=== PATIENT | female | born 1945 | race African-American/Black ===

== ENCOUNTER 2023-08-25 11:20 | Emergency (ER) | payer MEDICARE, BC, SELFPAY ==
[2023-08-25 11:36] VITALS: BP 133/68
[2023-08-25 12:07] LABS: % Basophils 0.4 % (0-2); % Eosinophils 1.4 % (0-6); % Immature Granulocytes 0.4 % (0-0.5); % Lymphocytes 16.1 % (20.5-51.1); % Monocytes 7.4 % (1.7-9.3); % Neutrophils 74.3 % (42.2-75.2); Absolute Eosinophils 0.1 10^3/uL (0-0.7); Absolute Lymphocytes 1.3 10^3/uL (1.2-3.4); Absolute Monocytes 0.6 10^3/uL (0.1-0.6); Absolute Neutrophils 5.8 10^3/uL (1.4-6.5); Hematocrit 44.7 % (37.0-47.0); Mean Corp Hgb Conc. 33.6 g/dL (33.0-37.0); Mean Corpuscular Hgb 30.9 pg (27.0-31.0); Mean Platelet Volume 9.6 fL (7.4-10.4); Nucleated Red Blood Cells % 0 %; Platelet Count 298 10^3/uL (130-400); Red Blood Cell Count 4.86 10^6/uL (4.20-5.40); Red Cell Dist. Width 13.4 % (11.5-14.5); White Blood Cell Count 7.8 10^3/uL (4.8-10.8)
[2023-08-25 12:21] LABS: ALT (SGPT) 24 U/L (0-35); AST (SGOT) 36 U/L (14-36); Albumin 4.1 g/dl (3.5-5.0); Alkaline Phosphatase 89 U/L (38-126); Blood Urea Nitrogen 16 mg/dl (7-17); Calcium 10.3 mg/dl (8.4-10.2); Carbon Dioxide 30 mmol/L (22-30); Chloride 104 mmol/L (98-107); Glucose 91 mg/dl (70-99); Potassium 4.5 mmol/L (3.5-5.1); Sodium 137 mmol/L (135-145); Total Bilirubin 0.6 mg/dl (0.2-1.3); Total Protein 6.8 g/dl (6.3-8.2); eGFR > 60.00
[2023-08-25 12:34] LABS: Troponin I < 0.012 ng/ml
[2023-08-25 13:49] VITALS: BP 142/73
--- NOTE | 2023-08-25 13:55 | ED.GENMED ---
History of Present Illness
General
Chief Complaint: Chest Pain
Source: patient and family
Exam Limitations: none
Time Seen by Provider: 08/25/23 13:41
Travel History
Have you had any contact with someone who has COVID-19?: No
Do you have any symptoms of coronavirus? Fever > 100 degrees, chills, cough, shortness of breath, sore throat, loss of taste or smell, muscle aches, or headache?: No
History of Present Illness
History of Present Illness:
See MDM
Past History
Past History
ED Past Medical History: Cancer (Colon cancer ), Psychiatric (Depression, bipolar disorder ), Other (Dementia ) and Other (Osteoarthritis )
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
Social History
Tobacco: Non-smoker
Alcohol: None
Personal:
Living: with family
Employment: Retired
Family History
Family History: Other (Noncontributory)
Phy Exam
Physical Exam
Physical Exam:
See MDM
Scores
Heart Score for Chest Pain Patients
STEMI patient?: No
History: Slightly or Non-Suspicious
ECG: Normal
Age: >/= 65 years
Risk Factors: 1 or 2 Risk Factors
Troponin: </= Normal Limit
Heart Score for Chest Pain Patients: 3
Heart Score Risk: 2.5% MACE over next 6 weeks
Course
Orders/Labs/Results
Orders:
Orders
08/25/23 11:22
ECG [Electrocardiogram (*1)] Urgent
Reason for Study: Chest Pain
EKG- Treatment ONCE
08/25/23 11:47
Complete Blood Count/With Diff Urgent
Comprehensive Metabolic Panel Urgent
Troponin I Urgent
08/25/23 13:54
CR Chest - 2 Views Urgent
Comment:
Reason For Exam: chest pain
08/25/23 13:56
Troponin I Urgent
Abnormal Lab Results
08/25/23
11:47
Lymphocytes % 16.1 L %
(20.5-51.1)
Calcium 10.3 H mg/dl
(8.4-10.2)
08/25/23 11:47
08/25/23 11:47
Vital Signs
Initial and Last Documented VS:
Initial Vital Signs
Temp Pulse Resp BP Pulse Ox
98.1 F 68 19 133/68 100
08/25/23 11:36 08/25/23 11:36 08/25/23 11:36 08/25/23 11:36 08/25/23 11:36
Last Documented Vital Signs
Temp Pulse Resp BP Pulse Ox
98.1 F 68 19 142/73 96
08/25/23 11:36 08/25/23 11:36 08/25/23 11:36 08/25/23 13:49 08/25/23 13:50
MDM/Problems Addressed
Differential Diagnosis Includes:
HPI and MDM Narrative:
77-year-old female presenting for evaluation of chest pain. Patient was at the dentist office being evaluated for a cracked tooth. While in the dentist chair, she noted chest pain. Patient states the pain hurts when she presses on her mid chest.
The dentist sent her in for evaluation. Patient denies prior cardiac history. She does not think symptoms are worse when she exerts herself
On exam, she is well-appearing and nontoxic. We discussed nonischemic EKG and normal troponin. Given age and complaint, will obtain chest x-ray and repeat troponin. She is not tachycardic nor hypoxic. She is extremely comfortable appearing lying
in bed. No clinical signs of DVT
Physical exam
General: Well appearing and non-toxic
HEENT: protecting airway
Neck: appears supple
CV: No evidence of cyanosis. Regular rate and rhythm
Chest: Reproducible tenderness to palpation of costochondral joints
Resp: No accessory muscle use. Lungs clear
Abd: Non-distended
Extremities: No deformities
Neuro: alert
Psych: Normal affect
Skin: Intact
Problems Addressed including Acute and Chronic Conditions affecting care:
1. Chest pain
Acuity: acute
Prognosis: stable
Details: Given no exertional component, nonischemic EKG and normal troponin, doubt ACS. No clinical signs of DVT. We discussed this could be related to the position she was in during her dentistry evaluation
Updates
Troponin negative x 2. Chest x-ray clear. Patient and family feel comfortable going home. Patient placed on cardiac callback tracker.
Differential Diagnosis (but not limited to): Noncardiac chest pain, costochondritis
Testing considered: D-dimer but no clinical signs of DVT
Drug therapy (if applicable): OTC meds, please see d/c instruction regarding Rx drugs
Amount and/or Complexity of Data Reviewed
Clinical info obtained from: Patient
External data reviewed: N/A
Labs I independently reviewed (but not limited to): Troponin normal
Radiology: X-ray independently reviewed: Chest x-ray clear
Pulse Ox: not hypoxic
EKG independently reviewed: Sinus rhythm, normal axis, no STEMI
Arc Welder: N/A
Critical Care: N/A
Risk of Complication:
Social Determinants of health: Good social support
Discussed with other providers: N/A
Escalation of Care includes Admit/Obs: After being observed in the Emergency Department, pt stable for discharge.
Occasional wrong word or 'sound a like' substitutions may have occurred due to the inherent limitations of voice recognition software. Read the chart carefully and recognize, using context, where substitutions have occurred.
*Critical Care Note
Total Time (30-74mins, 75-104mins- exclusive of procedures): Not Applicable
ED Attending Note
-
Portions of this chart may have been created with voice recognition software.� Occasional wrong word or��sound alike� substitutions may have occurred due to the inherent limitations of voice recognition software.
Discharge Plan
Departure
Patient Disposition: Home (Routine Discharge)
Date of Disposition: 08/25/23
Time of Disposition: 14:40
Patient with high blood pressure during this ER visit?: Yes
Discharge Problem:
Chest pain
Instructions: Chest Pain DCA Follow Up, BLOOD PRESSURE
Prescriptions:
No Action
zuwdrptdnkb-xlxqgzbqa-myo C-Mn 1 CAP capsule
1 cap PO DAILY
Patient Comments:
pt poor historian
vitamin B complex-folic acid [Super B Maxi Complex] 0.4 MG tablet
0.4 mg PO DAILY
topiramate 25 MG tablet
50 mg PO BID
mirtazapine 30 MG tablet
30 mg PO HS
ferrous sulfate [FeroSul] 325 MG tablet
325 mg PO DAILY
quetiapine 25 MG tablet
50 mg PO HS
donepezil 10 MG tablet
10 mg PO HS
ascorbic acid (vitamin C) [Vitamin C] 500 MG tablet
500 mg PO DAILY
gabapentin 300 MG capsule
300 mg PO BID
esomeprazole magnesium [Nexium] 20 MG capsule,delayed release(DR/EC)
20 mg PO DAILY
oxycodone 5 MG tablet
5 mg PO Q4HPRN PRN (Reason: moderate pain)
escitalopram oxalate 20 MG tablet
20 mg PO DAILY
aripiprazole 5 MG tablet
5 mg PO DAILY
memantine 10 MG tablet
10 mg PO BID
fish oil-dha-epa 1 EACH capsule
2 ea PO BID
calcium carbonate-vitamin D3 [Oyster Shell Calcium-Vit D3] 500 MG tablet
1 tab PO BID
cholecalciferol (vitamin D3) 1,000 UNITS tablet
1,000 units PO DAILY
multivitamin with folic acid [Tab-A-Marina] 1 TABLET tablet
1 tab PO DAILY
psyllium husk [Metamucil] 0.4 GM capsule
0.4 gm PO DAILY
aspirin 81 MG tablet,chewable
81 mg PO BID
lidocaine [Aspercreme (lidocaine)] 1 PATCH adhesive patch,medicated
1 patch topical DAILY Qty: 10 0RF
Rx Instructions:
apply on hip
Referrals:
Zander Grewal MD [Active] -
Activity Restrictions/Additional Instructions:
Please return for any worsening symptoms.
You may return at any time if you have further concerns.
Please follow up with your doctor at the first available appointment, preferably this week.
You were placed on the cardiac callback tracker. Someone from their office should call you in the next few days. If you do not hear from them in the next few days, please give them a call.
Thank you for choosing [facility].
Interventions
Interventions:
*Risk Screen - Suicide Last Done: 08/25/23 13:43
*General Assessment Last Done: 08/25/23 11:36
*Neglect/Abuse Screening Last Done: 08/25/23 13:43
ED- Fall Risk Assessment Last Done: 08/25/23 13:52
*ED COVID-19 Vaccine History Last Done: 08/25/23 13:52
ED- Cardiac Assessment Last Done: 08/25/23 13:43
[2023-08-25 14:00] VITALS: BP 133/69
[2023-08-25 14:27] LABS: Troponin I < 0.012 ng/ml
== END 2023-08-25 14:48 | disposition home or self-care (01) ==
LOC: EMR 11:20
PROVIDERS: Physician Assistant; EMERGENCY PHYSICIAN Student in an Organized Health Care Education/Training Program; FAMILY PHYSICIAN Internal Medicine Geriatric Medicine
DX: R07.89 Other chest pain (principal); F03.93 Unspecified dementia, unspecified severity, with mood disturbance; F31.9 Bipolar disorder, unspecified; M19.90 Unspecified osteoarthritis, unspecified site; Z85.038 Personal history of other malignant neoplasm of large intestine; Z90.49 Acquired absence of other specified parts of digestive tract; Z90.710 Acquired absence of both cervix and uterus
CPT/HCPCS: 99283; 71046; 80053; 84484; 85025; 93005

== ENCOUNTER → 2023-09-14 11:07 | Outpatient (REF) | payer MEDICARE, BC, SELFPAY | LOC: DHCBC/DCA 11:07 | PROVIDERS: ATTENDING PHYSICIAN Internal Medicine Cardiovascular Disease; FAMILY PHYSICIAN Internal Medicine Geriatric Medicine | DX: R07.9 Chest pain, unspecified (principal) | CPT/HCPCS: 78452; 93017; A9500; J2785 ==

== ENCOUNTER → 2023-10-07 13:41 | Outpatient (REF) | payer MEDICARE, BC, SELFPAY | LOC: DHCBS HW 13:41 | PROVIDERS: ATTENDING PHYSICIAN Internal Medicine Cardiovascular Disease; FAMILY PHYSICIAN Internal Medicine Geriatric Medicine | DX: R07.9 Chest pain, unspecified (principal) | CPT/HCPCS: 93306 ==

== ENCOUNTER 2024-01-07 19:27 | Emergency (ER) | payer MEDICARE, BC, SELFPAY ==
[2024-01-07 19:28] VITALS: BP 110/58; BMI 23.4
[2024-01-07 19:33] VITALS: BP 110/58
[2024-01-07 20:00] VITALS: BP 114/66
--- NOTE | 2024-01-07 20:17 | ED.GENMED ---
History of Present Illness
General
Chief Complaint: Overdose Unintentional
Source: patient, spouse and other (Friend)
Exam Limitations: dementia (history of)
Time Seen by Provider: 01/07/24 19:55
History of Present Illness
History of Present Illness:
This is a 78 year old female that is brought in by ambulance with accidental overdose. Told that the patient around 5:30-6pm took Zoloft that was her husbands. states that she put some in her mouth and then spit them out. States that he only
takes a 1/2 of a tablet and they were filled on 11/05/23. States that they are 50mg tablets. Denies any nausea, vomiting, diarrhea, abd pain, fever, chills, chest pain, SOB, headache, dizziness, urinary burning
Past History
Past History
ED Past Medical History: Cancer (Colon cancer ), Psychiatric (Depression, bipolar disorder ), Other (Dementia ) and Other (Osteoarthritis )
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
Left hip revision, ) and Other (Cataracts)
Social History
Tobacco: Former smoker
Alcohol: Occasional
Personal:
Living: with family
Employment: Retired
Family History
Family History: Other (Noncontributory)
Review of Systems
Review of Systems
Other source history: family
All Other Systems: ROS reviewed and negative except as documented in HPI and ROS
Constitutional: Reports no symptoms; Denies fever or chills
EENT: Reports no symptoms
Respiratory: Reports no symptoms; Denies cough or trouble breathing
Cardiac: Reports no symptoms; Denies chest pain
ABD/GI: Reports no symptoms; Denies abdominal pain, nausea, vomiting or diarrhea
: Reports no symptoms; Denies dysuria, frequency or urgency
Musculoskeletal: Reports no symptoms
Skin: Reports no symptoms
Neurological: Reports no symptoms; Denies dizzy or headache
Psychiatric: Reports no symptoms
Phy Exam
General Physical Exam
General Presentation: no apparent distress
General age: appears stated age
General Skin: warm and dry
General Habitus: elderly
General Mental: usual mental status
General Hydration: dry mucous membranes
ENT Exam
ENT Exam: TM's normal, pharynx normal and neck supple
Eye Exam
Eye Exam: EOMI
Cardiovascular Exam
Cardiovascular Exam: regular rate/rhythm, no edema, no murmur and normal peripheral pulses
Pulmonary Exam
Pulmonary Exam: lungs clear, no respiratory distress, no rales, chest non tender, no crackles, no rhonchi, no wheezing and no cough
Gastrointestinal Exam
Gastrointestinal Exam: normal bowel sounds, non tender, soft, no organomegaly, no pulsatile mass and non distended
Musculoskeletal Exam
Musculoskeletal Exam: full ROM and no edema
Skin Exam
Skin Exam: normal color, warm/dry, no rash and no petechia
Psychiatric Exam
Psychiatric Exam: normal mood/affect
Course
Orders/Labs/Results
Orders:
Orders
01/07/24 19:36
Electrocardiogram (*1) Urgent
Reason for Study: QTc Monitoring
EKG- Treatment ONCE
01/07/24 20:14
0.9% Sodium Chloride 1000 ml [Nss] 1,000 ml IV BOLUS
01/07/24 20:25
Acetaminophen Urgent
Complete Blood Count/With Diff Urgent
Comprehensive Metabolic Panel Urgent
Salicylate Urgent
Abnormal Lab Results
01/07/24
20:25
BUN 29 H mg/dl
(7-17)
Glucose 130 H mg/dl
(70-99)
Calcium 10.3 H mg/dl
(8.4-10.2)
Salicylates < 1.0 L mg/dl
(2.0-20.0)
Acetaminophen < 10 L ug/ml
(10-30)
01/07/24 20:25
01/07/24 20:25
Dehydration. Glucose nonfasting. Calcium very slightly elevated. Negative for salicylates or Acetaminophen
Vital Signs
Initial and Last Documented VS:
Initial Vital Signs
Temp Pulse Resp BP Pulse Ox
98 F 77 16 110/58 97
01/07/24 19:28 01/07/24 19:28 01/07/24 19:28 01/07/24 19:28 01/07/24 19:28
Last Documented Vital Signs
Temp Pulse Resp BP Pulse Ox
98 F 74 19 131/91 96
01/07/24 19:28 01/07/24 22:00 01/07/24 22:00 01/07/24 22:00 01/07/24 21:45
MDM/Problems Addressed
Differential Diagnosis Includes:
accidental overdose
MDM/Problems Addressed:
This is a 78 year old female that has dementia. Patient accidentally took her husbands Zoloft and then spit them out according to the .
Will get labs, ECG, IV fluids and talk with Poison control
Spoke with Poison Control at [facility], Dr. Welsh. Given all information. Feels that the patient should be watched from the time of ingestion for about 5 hours. If patient has normal vital signs, No Tachycardia, Gi upset, and she is able to
ambulate she can go home in 5 hours form the 6pm time. Repeat exam. Heart rate normal. Lungs remain clear. Patient was able to walk without any difficulty. Will discharge home.
Unable to get . Called . Daughter and she will come and pick her mom up.
Chronic conditions affecting care:
Dementia
Acute Exacerbation and/or Progression of Chronic Illness:
NA
*Pulse Oximetry
Patient hypoxic: no
*EKG
Interpreted by ED Provider?: Yes
Heart Rate: 69
Rate: normal
Rhythm: sinus arrhythmia
[place]: normal axis
Interval: normal interval
QRS Pattern: normal QRS
Ischemia: no ischemia
*Hotel Front Office Manager Interpretation
Rate: normal
Heart Rate: 75
Rhythm: sinus
*Critical Care Note
Total Time (30-74mins, 75-104mins- exclusive of procedures): Not Applicable
ED Attending Note
-
Portions of this chart may have been created with voice recognition software.� Occasional wrong word or��sound alike� substitutions may have occurred due to the inherent limitations of voice recognition software.
Discharge Plan
Departure
Patient Disposition: Home (Routine Discharge)
Date of Disposition: 01/07/24
Time of Disposition: 23:13
Patient with high blood pressure during this ER visit?: Yes
Condition: Good
Covid-19: Not Applicable
Discharge Problem:
Accidental drug ingestion
Instructions: BLOOD PRESSURE
Prescriptions:
No Action
uakytfayolk-wcwihorwr-jlk C-Mn 1 CAP capsule
1 cap PO DAILY
Patient Comments:
pt poor historian
vitamin B complex-folic acid [Super B Maxi Complex] 0.4 MG tablet
0.4 mg PO DAILY
topiramate 25 MG tablet
50 mg PO BID
mirtazapine 30 MG tablet
30 mg PO HS
ferrous sulfate [FeroSul] 325 MG tablet
325 mg PO DAILY
quetiapine 25 MG tablet
50 mg PO HS
donepezil 10 MG tablet
10 mg PO HS
ascorbic acid (vitamin C) [Vitamin C] 500 MG tablet
500 mg PO DAILY
gabapentin 300 MG capsule
300 mg PO BID
esomeprazole magnesium [Nexium] 20 MG capsule,delayed release(DR/EC)
20 mg PO DAILY
oxycodone 5 MG tablet
5 mg PO Q4HPRN PRN (Reason: moderate pain)
escitalopram oxalate 20 MG tablet
20 mg PO DAILY
aripiprazole 5 MG tablet
5 mg PO DAILY
memantine 10 MG tablet
10 mg PO BID
fish oil-dha-epa 1 EACH capsule
2 ea PO BID
calcium carbonate-vitamin D3 [Oyster Shell Calcium-Vit D3] 500 MG tablet
1 tab PO BID
cholecalciferol (vitamin D3) 1,000 UNITS tablet
1,000 units PO DAILY
multivitamin with folic acid [Tab-A-Marina] 1 TABLET tablet
1 tab PO DAILY
psyllium husk [Metamucil] 0.4 GM capsule
0.4 gm PO DAILY
aspirin 81 MG tablet,chewable
81 mg PO BID
lidocaine [Aspercreme (lidocaine)] 1 PATCH adhesive patch,medicated
1 patch topical DAILY Qty: 10 0RF
Rx Instructions:
apply on hip
Referrals:
NONE,* [Family Provider] -
Activity Restrictions/Additional Instructions:
As discussed, your blood work is normal. You have been given IV fluids and your vital signs are normal. Please keep medication locked up so not in the reach of patient. Most likely the patient spit all the medication out as there was no signs noted
that would have been seen. Follow up with the family doctor as needed. IF YOU HAVE ANY OTHER CONCERNS PLEASE RETURN TO THE EMERGENCY ROOM
Interventions
Interventions:
ED- Cardiac Assessment Last Done: 01/07/24 20:00
ED- Neurological Assessment Last Done: 01/07/24 20:00
ED-Psychological Assessment Last Done: 01/07/24 20:00
ED- Pulmonary Assessment Last Done: 01/07/24 20:00
Discharge Date and Time
Print Language: BELIZEAN
[2024-01-07] MEDS: NSS 1000 IV (20:27)
[2024-01-07 20:34] LABS: % Basophils 0.5 % (0-2); % Immature Granulocytes 0.5 % (0-0.5); % Lymphocytes 20.5 % (20.5-51.1); % Monocytes 7.8 % (1.7-9.3); % Neutrophils 67.7 % (42.2-75.2); Absolute Eosinophils 0.2 10^3/uL (0-0.7); Absolute Lymphocytes 1.5 10^3/uL (1.2-3.4); Absolute Monocytes 0.6 10^3/uL (0.1-0.6); Absolute Neutrophils 4.9 10^3/uL (1.4-6.5); Hematocrit 38.4 % (37.0-47.0); Hemoglobin 13.2 g/dL (12.0-16.0); Mean Corp Hgb Conc. 34.4 g/dL (33.0-37.0); Mean Corpuscular Hgb 30.7 pg (27.0-31.0); Mean Corpuscular Volume 89.3 fL (81.0-99.0); Mean Platelet Volume 9.5 fL (7.4-10.4); Nucleated Red Blood Cells % 0 %; Platelet Count 273 10^3/uL (130-400); Red Cell Dist. Width 13.8 % (11.5-14.5); White Blood Cell Count 7.3 10^3/uL (4.8-10.8)
[2024-01-07 20:51] LABS: ALT (SGPT) 21 U/L (0-35); AST (SGOT) 32 U/L (14-36); Albumin 3.9 g/dl (3.5-5.0); Alkaline Phosphatase 93 U/L (38-126); Blood Urea Nitrogen 29 mg/dl (7-17); Calcium 10.3 mg/dl (8.4-10.2); Carbon Dioxide 26 mmol/L (22-30); Chloride 106 mmol/L (98-107); Estimated Creatinine Clearance 55 ml/min; Glucose 130 mg/dl (70-99); Potassium 3.9 mmol/L (3.5-5.1); Sodium 139 mmol/L (135-145); Total Bilirubin 0.3 mg/dl (0.2-1.3); Total Protein 6.4 g/dl (6.3-8.2); eGFR > 60.00
[2024-01-07 20:52] LABS: Acetaminophen < 10 ug/ml (10-30)
[2024-01-07 21:00] VITALS: BP 133/72
[2024-01-07 21:02] LABS: Salicylate < 1.0 mg/dl (2.0-20.0)
[2024-01-07 22:00] VITALS: BP 131/91
== END 2024-01-08 00:43 | disposition home or self-care (01) ==
LOC: EMR 19:27
PROVIDERS: Clinical Nurse Specialist Family Health; EMERGENCY PHYSICIAN Emergency Medicine
DX: T43.221A Poisoning by selective serotonin reuptake inhibitors, accidental (unintentional), initial encounter (principal); E86.0 Dehydration; F03.90 Unspecified dementia, unspecified severity, without behavioral disturbance, psychotic disturbance, mood disturbance, and anxiety; F31.9 Bipolar disorder, unspecified; M19.90 Unspecified osteoarthritis, unspecified site; Z96.652 Presence of left artificial knee joint; Z96.643 Presence of artificial hip joint, bilateral; Z85.038 Personal history of other malignant neoplasm of large intestine; Z87.891 Personal history of nicotine dependence; Z98.0 Intestinal bypass and anastomosis status; Z90.13 Acquired absence of bilateral breasts and nipples; Z90.49 Acquired absence of other specified parts of digestive tract; Z88.1 Allergy status to other antibiotic agents; Z88.2 Allergy status to sulfonamides; Z91.048 Other nonmedicinal substance allergy status; Z79.82 Long term (current) use of aspirin
CPT/HCPCS: 99284; 96360; 80053; 80143; 80179; 85025; 93005

== ENCOUNTER → 2024-02-09 09:59 | Outpatient (REF) | payer MEDICARE, BC, SELFPAY ==
[2024-02-09 11:20] LABS: % Basophils 0.9 % (0-2); % Eosinophils 2.1 % (0-6); % Immature Granulocytes 0.5 % (0-0.5); % Lymphocytes 14.3 % (20.5-51.1); % Monocytes 6.9 % (1.7-9.3); % Neutrophils 75.3 % (42.2-75.2); Absolute Basophils 0.1 10^3/uL (0-0.2); Absolute Eosinophils 0.2 10^3/uL (0-0.7); Absolute Lymphocytes 1.2 10^3/uL (1.2-3.4); Absolute Monocytes 0.6 10^3/uL (0.1-0.6); Absolute Neutrophils 6.1 10^3/uL (1.4-6.5); Hematocrit 43.6 % (37.0-47.0); Hemoglobin 14.8 g/dL (12.0-16.0); Mean Corp Hgb Conc. 33.9 g/dL (33.0-37.0); Mean Corpuscular Hgb 30.3 pg (27.0-31.0); Mean Corpuscular Volume 89.2 fL (81.0-99.0); Mean Platelet Volume 10.1 fL (7.4-10.4); Nucleated Red Blood Cells % 0 %; Platelet Count 330 10^3/uL (130-400); Red Blood Cell Count 4.89 10^6/uL (4.20-5.40); Red Cell Dist. Width 13.7 % (11.5-14.5); White Blood Cell Count 8.1 10^3/uL (4.8-10.8)
[2024-02-09 11:29] LABS: Urine Albumin Trace (Neg - Trace); Urine Bilirubin 1+ (Negative); Urine Character Clear (Clear); Urine Color Yellow; Urine Glucose Negative (Negative); Urine Ketone Negative (Negative); Urine Leukocyte 2+ (Negative); Urine Nitrite Positive (Negative); Urine Occult Blood 2+ (Negative); Urine Specific Gravity 1.025 (<1.030); Urine Urobilinogen Negative (Neg - 1+)
[2024-02-09 11:40] LABS: Urine Bacteria Moderate (Negative); Urine Squamous Cell 16-20 /LPF (Few); Urine White Cell 26-30 /HPF (0-5)
[2024-02-09 11:41] LABS: Urine Mucus Few
[2024-02-09 12:14] LABS: ALT (SGPT) 22 U/L (0-35); AST (SGOT) 35 U/L (14-36); Albumin 4.2 g/dl (3.5-5.0); Blood Urea Nitrogen 19 mg/dl (7-17); Calcium 10.2 mg/dl (8.4-10.2); Carbon Dioxide 27 mmol/L (22-30); Glucose 94 mg/dl (70-99); Total Bilirubin 0.6 mg/dl (0.2-1.3); Total Cholesterol 218 mg/dl (50-199); Total Protein 6.8 g/dl (6.3-8.2); Triglyceride 83 mg/dl (10-149); Very Low Density Lipoprotein 16 mg/dl (0-30); eGFR > 60.00
[2024-02-09 12:22] LABS: Alkaline Phosphatase 78 U/L (38-126); Chloride 103 mmol/L (98-107); HDL Cholesterol 82 mg/dl; LDL Cholesterol, Calculated 120 mg/dl; Potassium 4.6 mmol/L (3.5-5.1); Sodium 138 mmol/L (135-145)
== END ==
LOC: REG 09:59
PROVIDERS: ATTENDING PHYSICIAN Internal Medicine Geriatric Medicine
DX: J44.9 Chronic obstructive pulmonary disease, unspecified (principal); T79.2XXA Traumatic secondary and recurrent hemorrhage and seroma, initial encounter; N64.4 Mastodynia; W19.XXXA Unspecified fall, initial encounter; R52 Pain, unspecified; Z98.82 Breast implant status; I10 Essential (primary) hypertension; E78.2 Mixed hyperlipidemia; M54.16 Radiculopathy, lumbar region; D3A.012 Benign carcinoid tumor of the ileum; I11.9 Hypertensive heart disease without heart failure; Z13.89 Encounter for screening for other disorder; G44.209 Tension-type headache, unspecified, not intractable; E55.9 Vitamin D deficiency, unspecified; N39.41 Urge incontinence; F05 Delirium due to known physiological condition
CPT/HCPCS: 36415; 80053; 80061; 81003; 81015; 85025; 87086; 87088; 87186

== ENCOUNTER → 2024-02-29 09:37 | Outpatient (REF) | payer MEDICARE, BC, SELFPAY | LOC: REG 09:37 | PROVIDERS: ATTENDING PHYSICIAN Internal Medicine Geriatric Medicine | DX: R30.0 Dysuria (principal) | CPT/HCPCS: 87077; 87086; 87186 ==

== ENCOUNTER 2024-04-08 12:31 | Emergency (ER) | payer MEDICARE, BC, SELFPAY ==
[2024-04-08 12:37] VITALS: BP 106/61
[2024-04-08 12:38] VITALS: BP 106/61
[2024-04-08 13:00] VITALS: BP 118/50
[2024-04-08 13:03] LABS: Glucose - Point of Care 88 mg/dl (70-99)
[2024-04-08 13:06] LABS: % Basophils 0.4 % (0-2); % Eosinophils 1.4 % (0-6); % Immature Granulocytes 0.4 % (0-0.5); % Lymphocytes 19.9 % (20.5-51.1); % Monocytes 9.1 % (1.7-9.3); % Neutrophils 68.8 % (42.2-75.2); Absolute Eosinophils 0.1 10^3/uL (0-0.7); Absolute Lymphocytes 1.4 10^3/uL (1.2-3.4); Absolute Monocytes 0.6 10^3/uL (0.1-0.6); Absolute Neutrophils 4.9 10^3/uL (1.4-6.5); Hematocrit 38.7 % (37.0-47.0); Mean Corp Hgb Conc. 33.6 g/dL (33.0-37.0); Mean Corpuscular Hgb 29.7 pg (27.0-31.0); Mean Corpuscular Volume 88.6 fL (81.0-99.0); Mean Platelet Volume 9.5 fL (7.4-10.4); Nucleated Red Blood Cells % 0 %; Platelet Count 260 10^3/uL (130-400); Red Blood Cell Count 4.37 10^6/uL (4.20-5.40); Red Cell Dist. Width 13.7 % (11.5-14.5); White Blood Cell Count 7.1 10^3/uL (4.8-10.8)
--- NOTE | 2024-04-08 13:21 | ED.GENMED ---
History of Present Illness
General
Chief Complaint: Fainting/Passed Out
Time Seen by Provider: 04/08/24 12:59
History of Present Illness
History of Present Illness:
78-year-old female presents the emergency department for evaluation of a witnessed syncope versus sudden fall that occurred at home witnessed by the reservoir engineer. Positive head strike against the wall. On arrival by EMS she is in a c-collar. History
cannot be obtained due to severe dementia, she is not on anticoagulants
Past History
Past History
ED Past Medical History: Cancer (Colon cancer ), Psychiatric (Depression, bipolar disorder ), Other (Dementia ) and Other (Osteoarthritis )
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
Left hip revision, ) and Other (Cataracts)
Social History
Tobacco: Former smoker
Alcohol: Occasional
Personal:
Living: with family
Employment: Retired
Family History
Family History: Other (Noncontributory)
Review of Systems
Review of Systems
Allergies reviewed?: Yes
All Other Systems: ROS reviewed and negative except as documented in HPI and ROS
Phy Exam
Physical Exam
Physical Exam:
GEN: Well appearing, NAD, WDWN
HEENT: Oral mucosa moist, no scleral icterus
Cardiac: Regular rate
Lung: No respiratory distress, no tachypnea
MSK: No gross deformity or injuries
Skin: Good color, no pallor or jaundice, no rashes
Neuro: Alert, disordered and confused speech, follows commands, moves all extremities freely with no focal deficit
Psych: Calm, cooperative
Course
Orders/Labs/Results
Orders:
Orders
04/08/24 12:37
EKG [Electrocardiogram (*1)] Urgent
Reason for Study: Syncope
EKG- Treatment ONCE
04/08/24 12:54
CBC/With Diff [Complete Blood Count/With Diff] Urgent
CMP [Comprehensive Metabolic Panel] Urgent
04/08/24 13:20
CT Cervical Spine W/o Iv Contr Urgent
Comment:
Reason For Exam: fall
CT Head W/o Iv Contrast Urgent
Comment:
Reason For Exam: head injury
Abnormal Lab Results
04/08/24
12:54
Lymphocytes % 19.9 L %
(20.5-51.1)
BUN 20 H mg/dl
(7-17)
Total Protein 5.8 L g/dl
(6.3-8.2)
04/08/24 12:54
04/08/24 12:54
Vital Signs
Initial and Last Documented VS:
Initial Vital Signs
Pulse Resp
64 12
04/08/24 12:35 04/08/24 12:35
Last Documented Vital Signs
Temp Pulse Resp BP Pulse Ox
98.0 F 68 11 119/68 97
04/08/24 12:38 04/08/24 14:15 04/08/24 14:15 04/08/24 14:04 04/08/24 14:04
MDM/Problems Addressed
MDM/Problems Addressed:
Patient is clinically well-appearing with no signs of external trauma. Due to her severe dementia CTs of the head and cervical spine were obtained showing no evidence for acute fracture or hemorrhage. Labs are reassuring and there is no evidence
for metabolic derangement or electrolyte pathology that would suggest a source of her syncopal event. Likely vasovagal
*Critical Care Note
Total Time (30-74mins, 75-104mins- exclusive of procedures): Not Applicable
ED Attending Note
-
Portions of this chart may have been created with voice recognition software.� Occasional wrong word or��sound alike� substitutions may have occurred due to the inherent limitations of voice recognition software.
Discharge Plan
Departure
Patient Disposition: Home (Routine Discharge)
Date of Disposition: 04/08/24
Time of Disposition: 14:17
Patient with high blood pressure during this ER visit?: No
Discharge Problem:
Unwitnessed fall
Instructions: Syncope (Fainting) (DC)
Prescriptions:
No Action
cenlxyqgxmx-rcciidccd-dif C-Mn 1 CAP capsule
1 cap PO DAILY
Patient Comments:
pt poor historian
vitamin B complex-folic acid [Super B Maxi Complex] 0.4 MG tablet
0.4 mg PO DAILY
topiramate 25 MG tablet
50 mg PO BID
mirtazapine 30 MG tablet
30 mg PO HS
ferrous sulfate [FeroSul] 325 MG tablet
325 mg PO DAILY
quetiapine 25 MG tablet
50 mg PO HS
donepezil 10 MG tablet
10 mg PO HS
ascorbic acid (vitamin C) [Vitamin C] 500 MG tablet
500 mg PO DAILY
gabapentin 300 MG capsule
300 mg PO BID
esomeprazole magnesium [Nexium] 20 MG capsule,delayed release(DR/EC)
20 mg PO DAILY
oxycodone 5 MG tablet
5 mg PO Q4HPRN PRN (Reason: moderate pain)
escitalopram oxalate 20 MG tablet
20 mg PO DAILY
aripiprazole 5 MG tablet
5 mg PO DAILY
memantine 10 MG tablet
10 mg PO BID
fish oil-dha-epa 1 EACH capsule
2 ea PO BID
calcium carbonate-vitamin D3 [Oyster Shell Calcium-Vit D3] 500 MG tablet
1 tab PO BID
cholecalciferol (vitamin D3) 1,000 UNITS tablet
1,000 units PO DAILY
multivitamin with folic acid [Tab-A-Marina] 1 TABLET tablet
1 tab PO DAILY
psyllium husk [Metamucil] 0.4 GM capsule
0.4 gm PO DAILY
aspirin 81 MG tablet,chewable
81 mg PO BID
lidocaine [Aspercreme (lidocaine)] 1 PATCH adhesive patch,medicated
1 patch topical DAILY Qty: 10 0RF
Rx Instructions:
apply on hip
Referrals:
Giovany Briceno MD [Family Provider] -
Interventions
Interventions:
*Risk Screen - Suicide Last Done: 04/08/24 12:38
*General Assessment Last Done: 04/08/24 12:38
*Neglect/Abuse Screening Last Done: 04/08/24 12:38
*ED COVID-19 Vaccine History Last Done: 04/08/24 13:05
*Nursing Disposition Last Done: 04/08/24 14:27
ED- Cardiac Assessment Last Done: 04/08/24 13:05
ED- Neurological Assessment Last Done: 04/08/24 13:05
Discharge Date and Time
Discharge Date/Time: 04/08/24 14:29
Print Language: AMERICAN
[2024-04-08 13:24] LABS: ALT (SGPT) 22 U/L (0-35); AST (SGOT) 31 U/L (14-36); Albumin 3.5 g/dl (3.5-5.0); Alkaline Phosphatase 66 U/L (38-126); Blood Urea Nitrogen 20 mg/dl (7-17); Calcium 9.9 mg/dl (8.4-10.2); Carbon Dioxide 26 mmol/L (22-30); Chloride 101 mmol/L (98-107); Estimated Creatinine Clearance 51 ml/min; Glucose 87 mg/dl (70-99); Potassium 3.9 mmol/L (3.5-5.1); Sodium 137 mmol/L (135-145); Total Bilirubin 0.4 mg/dl (0.2-1.3); Total Protein 5.8 g/dl (6.3-8.2); eGFR > 60.00
[2024-04-08 14:04] VITALS: BP 119/68
== END 2024-04-08 14:29 | disposition home or self-care (01) ==
LOC: EMR 12:31
PROVIDERS: Emergency Medicine; EMERGENCY PHYSICIAN Emergency Medicine; FAMILY PHYSICIAN Internal Medicine Geriatric Medicine
DX: R55 Syncope and collapse (principal); S09.90XA Unspecified injury of head, initial encounter; W18.39XA Other fall on same level, initial encounter; F03.C3 Unspecified dementia, severe, with mood disturbance; F32.A Depression, unspecified; F31.9 Bipolar disorder, unspecified; M19.90 Unspecified osteoarthritis, unspecified site; Z79.82 Long term (current) use of aspirin; Z96.643 Presence of artificial hip joint, bilateral; Z96.652 Presence of left artificial knee joint; Z87.891 Personal history of nicotine dependence; Z85.038 Personal history of other malignant neoplasm of large intestine; Z98.0 Intestinal bypass and anastomosis status; Z90.13 Acquired absence of bilateral breasts and nipples; Z90.49 Acquired absence of other specified parts of digestive tract; Z88.1 Allergy status to other antibiotic agents; Z88.2 Allergy status to sulfonamides; Z91.048 Other nonmedicinal substance allergy status
CPT/HCPCS: 99284; 70450; 72125; 80053; 82962; 85025; 93005

== ENCOUNTER → 2024-04-26 14:15 | Outpatient (REF) | payer MEDICARE, BC, SELFPAY | LOC: RAD 14:15 | PROVIDERS: ATTENDING PHYSICIAN Nurse Practitioner Family | DX: J06.9 Acute upper respiratory infection, unspecified (principal); R05.1 Acute cough; R50.9 Fever, unspecified | CPT/HCPCS: 71046 ==

== ENCOUNTER 2024-05-04 11:38 | Emergency (ER) | payer MEDICARE, BC, SELFPAY ==
[2024-05-04 11:44] VITALS: BP 133/100
[2024-05-04 12:32] LABS: ALT (SGPT) 22 U/L (0-35); AST (SGOT) 30 U/L (14-36); Albumin 3.8 g/dl (3.5-5.0); Alkaline Phosphatase 68 U/L (38-126); Blood Urea Nitrogen 16 mg/dl (7-17); Calcium 10.2 mg/dl (8.4-10.2); Carbon Dioxide 24 mmol/L (22-30); Chloride 101 mmol/L (98-107); Glucose 74 mg/dl (70-99); Potassium 4.3 mmol/L (3.5-5.1); Sodium 136 mmol/L (135-145); Total Bilirubin 0.3 mg/dl (0.2-1.3); Total Protein 6.3 g/dl (6.3-8.2); eGFR > 60.00
[2024-05-04 12:55] LABS: NT-proBNP 199 pg/ml
--- NOTE | 2024-05-04 13:51 | ED.GENMED ---
History of Present Illness
General
Chief Complaint: Breathing Problem
Source: patient
Time Seen by Provider: 05/04/24 13:44
History of Present Illness
History of Present Illness:
78-year-old female presents to the emergency room complaining of chest pain. Patient has evidently been complaining of chest pain since this morning. She is here with family. She does have some cognitive decline which makes it difficult for her
to provide detailed history. Evidently she developed URI type symptoms a week or 2 ago. She was treated with a week of antibiotics and steroids. Unclear if anything makes the pain better or worse.
Past History
Past History
ED Past Medical History: Cancer (Colon cancer ), Psychiatric (Depression, bipolar disorder ), Other (Dementia ) and Other (Osteoarthritis )
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
Left hip revision, ) and Other (Cataracts)
Social History
Tobacco: Former smoker
Alcohol: Occasional
Personal:
Living: with family
Employment: Retired
Family History
Family History: Other (Noncontributory)
Phy Exam
Physical Exam
Physical Exam:
General: Awake, Alert, Oriented X2. No acute distress. Appears chronically ill
Vitals: unremarkable
Head: Atraumatic, alopecia
Eyes: Pupils equal, EOMI
Throat: Airway intact, no exudates
Neck: Trachea midline
Lungs: Clear and equal b/l
Heart: Regular rate, no murmurs
Abd: Soft, Nontender, No pulsatile mass
Neuro: No focal weakness
Skin: Warm, dry, no rash
Extremities: pulses equal b/l, no edema
Scores
Heart Failure Risk
Heart Failure Risk Score: Not Applicable
Course
Orders/Labs/Results
Orders:
Orders
05/04/24 11:39
Electrocardiogram (*1) Urgent
Reason for Study: Chest Pain
EKG- Treatment ONCE
05/04/24 11:57
CMP [Comprehensive Metabolic Panel] Urgent
NT-proBNP Urgent
05/04/24 14:09
Ketorolac [Toradol] 15 mg IV NOW STA
05/04/24 14:16
Complete Blood Count/With Diff Urgent
D-Dimer Urgent
Troponin I Urgent
Abnormal Lab Results
05/04/24
14:16
Abs Immat Gran (auto) 0.1 H 10^3/uL
(0-0.05)
Absolute Neuts (auto) 6.6 H 10^3/uL
(1.4-6.5)
Absolute Monos (auto) 1.0 H 10^3/uL
(0.1-0.6)
Immature Gran % 0.7 H %
(0-0.5)
Lymphocytes % 18.6 L %
(20.5-51.1)
Monocytes % 9.9 H %
(1.7-9.3)
05/04/24 14:16
05/04/24 11:57
Vital Signs
Initial and Last Documented VS:
Initial Vital Signs
Temp Pulse Resp BP Pulse Ox
98.7 F 78 18 133/100 97
05/04/24 11:44 05/04/24 11:44 05/04/24 11:44 05/04/24 11:44 05/04/24 11:44
Last Documented Vital Signs
Temp Pulse Resp BP Pulse Ox
98.7 F 62 19 122/65 94
05/04/24 11:44 05/04/24 16:15 05/04/24 14:30 05/04/24 16:00 05/04/24 16:15
MDM/Problems Addressed
Differential Diagnosis Includes:
Acute coronary syndrome, chest wall pain, pulmonary embolism
MDM/Problems Addressed:
Patient presents with vague chest pain. She is hemodynamically stable. Her exam is reassuring. Labs show no significant abnormalities in particular her troponin is normal as is her BNP. A D-dimer is also normal. EKG shows no ischemic changes.
No evidence of an unstable process. Patient stable for discharge home and outpatient follow-up
*Pulse Oximetry
Patient hypoxic: no
*EKG
Interpreted by ED Provider?: Yes
Interpretation: abnormal
Heart Rate: 58
Rate: bradycardiac
Rhythm: sinus and PAC's
[place]: normal axis
Interval: normal interval
QRS Pattern: normal QRS
Ischemia: no ischemia
*Critical Care Note
Total Time (30-74mins, 75-104mins- exclusive of procedures): Not Applicable
ED Attending Note
-
Portions of this chart may have been created with voice recognition software.� Occasional wrong word or��sound alike� substitutions may have occurred due to the inherent limitations of voice recognition software.
Discharge Plan
Departure
Patient Disposition: Home (Routine Discharge)
Date of Disposition: 05/04/24
Time of Disposition: 16:18
Patient with high blood pressure during this ER visit?: No
Condition: Good
Discharge Problem:
Chest pain
Instructions: Chest Pain PCP Follow Up
Prescriptions:
No Action
gkjhviansla-xcufsnszn-cju C-Mn 1 CAP capsule
1 cap PO DAILY
Patient Comments:
pt poor historian
vitamin B complex-folic acid [Super B Maxi Complex] 0.4 MG tablet
0.4 mg PO DAILY
topiramate 25 MG tablet
50 mg PO BID
mirtazapine 30 MG tablet
30 mg PO HS
ferrous sulfate [FeroSul] 325 MG tablet
325 mg PO DAILY
quetiapine 25 MG tablet
50 mg PO HS
donepezil 10 MG tablet
10 mg PO HS
ascorbic acid (vitamin C) [Vitamin C] 500 MG tablet
500 mg PO DAILY
gabapentin 300 MG capsule
300 mg PO BID
esomeprazole magnesium [Nexium] 20 MG capsule,delayed release(DR/EC)
20 mg PO DAILY
oxycodone 5 MG tablet
5 mg PO Q4HPRN PRN (Reason: moderate pain)
escitalopram oxalate 20 MG tablet
20 mg PO DAILY
aripiprazole 5 MG tablet
5 mg PO DAILY
memantine 10 MG tablet
10 mg PO BID
fish oil-dha-epa 1 EACH capsule
2 ea PO BID
calcium carbonate-vitamin D3 [Oyster Shell Calcium-Vit D3] 500 MG tablet
1 tab PO BID
cholecalciferol (vitamin D3) 1,000 UNITS tablet
1,000 units PO DAILY
multivitamin with folic acid [Tab-A-Marina] 1 TABLET tablet
1 tab PO DAILY
psyllium husk [Metamucil] 0.4 GM capsule
0.4 gm PO DAILY
aspirin 81 MG tablet,chewable
81 mg PO BID
lidocaine [Aspercreme (lidocaine)] 1 PATCH adhesive patch,medicated
1 patch topical DAILY Qty: 10 0RF
Rx Instructions:
apply on hip
Referrals:
Giovany Briceno MD [Family Provider] -
Interventions
Interventions:
*Risk Screen - Suicide Last Done: 05/04/24 11:48
*General Assessment Last Done: 05/04/24 11:44
*Neglect/Abuse Screening Last Done: 05/04/24 16:29
ED- Fall Risk Assessment Last Done: 05/04/24 14:02
*ED COVID-19 Vaccine History Last Done: 05/04/24 11:44
*Nursing Disposition Last Done: 05/04/24 16:29
ED- Cardiac Assessment Last Done: 05/04/24 14:02
ED- Pulmonary Assessment Last Done: 05/04/24 14:02
Discharge Date and Time
Discharge Date/Time: 05/04/24 16:30
Print Language: AZERI
[2024-05-04 13:56] VITALS: BP 123/60
[2024-05-04 14:00] VITALS: BP 116/55
[2024-05-04 14:25] LABS: % Basophils 0.5 % (0-2); % Eosinophils 2.6 % (0-6); % Immature Granulocytes 0.7 % (0-0.5); % Lymphocytes 18.6 % (20.5-51.1); % Monocytes 9.9 % (1.7-9.3); % Neutrophils 67.7 % (42.2-75.2); Absolute Basophils 0.1 10^3/uL (0-0.2); Absolute Eosinophils 0.3 10^3/uL (0-0.7); Absolute Immature Granulocytes 0.1 10^3/uL (0-0.05); Absolute Lymphocytes 1.8 10^3/uL (1.2-3.4); Absolute Neutrophils 6.6 10^3/uL (1.4-6.5); Hematocrit 38.4 % (37.0-47.0); Hemoglobin 13.2 g/dL (12.0-16.0); Mean Corp Hgb Conc. 34.4 g/dL (33.0-37.0); Mean Corpuscular Hgb 29.8 pg (27.0-31.0); Mean Corpuscular Volume 86.7 fL (81.0-99.0); Mean Platelet Volume 9.2 fL (7.4-10.4); Nucleated Red Blood Cells % 0 %; Platelet Count 312 10^3/uL (130-400); Red Blood Cell Count 4.43 10^6/uL (4.20-5.40); Red Cell Dist. Width 13.5 % (11.5-14.5); White Blood Cell Count 9.8 10^3/uL (4.8-10.8)
[2024-05-04] MEDS: TORADOL 15 MG IV (14:37)
[2024-05-04 14:51] LABS: Troponin I < 0.012 ng/ml
[2024-05-04 15:00] VITALS: BP 122/72
[2024-05-04 15:16] LABS: D-Dimer < 0.27 ug/mlFEU (0.00-0.50)
[2024-05-04 16:00] VITALS: BP 122/65
== END 2024-05-04 16:30 | disposition home or self-care (01) ==
LOC: EMR 11:38
PROVIDERS: Student in an Organized Health Care Education/Training Program; EMERGENCY PHYSICIAN Emergency Medicine; FAMILY PHYSICIAN Internal Medicine Geriatric Medicine
DX: R07.89 Other chest pain (principal); F31.9 Bipolar disorder, unspecified; F03.93 Unspecified dementia, unspecified severity, with mood disturbance; M19.90 Unspecified osteoarthritis, unspecified site; Z85.038 Personal history of other malignant neoplasm of large intestine; Z87.891 Personal history of nicotine dependence; Z90.13 Acquired absence of bilateral breasts and nipples; Z90.49 Acquired absence of other specified parts of digestive tract; Z90.710 Acquired absence of both cervix and uterus; Z96.643 Presence of artificial hip joint, bilateral; Z96.652 Presence of left artificial knee joint
CPT/HCPCS: 99283; 96374; 80053; 83880; 84484; 85025; 85379; 93005

== ENCOUNTER 2024-05-27 12:14 | Emergency (ER) | payer MEDICARE, BC, SELFPAY ==
[2024-05-27 12:16] VITALS: BP 110/67
--- NOTE | 2024-05-27 14:18 | ED.GENMED ---
History of Present Illness
General
Chief Complaint: Fall
Source: patient
Exam Limitations: none
Time Seen by Provider: 05/27/24 13:18
Nursing documentation reviewed up to this point in time: agreed with
History of Present Illness
History of Present Illness:
78-year-old female past with history of Alzheimer's, alopecia presents to the ER for evaluation of fall. Patient was walking with her caregiver when she tripped on the sidewalk and landed on the grass. Caregiver reports no loc. Caregiver but she
did hit her face and chest on the grasss.
Patient is awake alert she complains of pain to her chest and upper abdominal region. reports with her dementia ,her pain seems to be exacerbated.
Patient is not on blood thinners. Her Mental status is the same as per caregiver and .
Past History
Past History
ED Past Medical History: Cancer (Colon cancer ), Psychiatric (Depression, bipolar disorder ), Other (Dementia ) and Other (Osteoarthritis )
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
Left hip revision, ) and Other (Cataracts)
Social History
Tobacco: Former smoker
Alcohol: Occasional
Personal:
Living: with family
Employment: Retired
Family History
Family History: Other (Noncontributory)
Review of Systems
Review of Systems
Allergies reviewed?: Yes
Unable to obtain full review of systems at this time due to: dementia
Other source history: family
All Other Systems: ROS reviewed and negative except as documented in HPI and ROS
Constitutional: Reports no symptoms; Denies fever, fatigue or chills
Respiratory: Reports other (anterior chest pain ); Denies trouble breathing
Cardiac: Reports other (pain to chest region )
ABD/GI: Reports no symptoms; Denies nausea or vomiting
Musculoskeletal: Reports no symptoms
Skin: Reports no symptoms
Neurological: Reports other (no loc No mental status change as per family ); Denies headache
Phy Exam
General Physical Exam
General Presentation: no apparent distress
General age: appears stated age
General Skin: warm and dry
General Habitus: elderly
General Mental: confused
Cardiovascular Exam
Cardiovascular Exam: regular rate/rhythm, no murmur and normal peripheral pulses
Pulmonary Exam
Pulmonary Exam: lungs clear, no respiratory distress and other (Normal inspection to chest no ecchymosis however tender throughout lower rib area; no crepitus)
Gastrointestinal Exam
Gastrointestinal Exam: soft and other (No ecchymosis to abdomen however tender on palpation of her upper abdominal region )
Neurological Exam
Neurological Exam: alert and other (Able to state name follows commands)
Cassie Coma Scale
Eye Opening: Spontaneous
Verbal Response: Confused
Motor Response: Obeys Commands
GCS Total Score: 14
Musculoskeletal Exam
Musculoskeletal Exam: other (No obvious head injury or facial injury no bony cervical spine thoracic or lumbar tenderness full range of motion to all extremities)
Skin Exam
Skin Exam: normal color and warm/dry
Psychiatric Exam
Psychiatric Exam: normal mood/affect
Course
Orders/Labs/Results
Orders:
Orders
05/27/24 13:39
CT Head W/o Iv Contrast Urgent
Comment:
Reason For Exam: fall
05/27/24 13:40
Chest/Abd/Pelvis w Contrast CT [CT Chest/abd/pel W Iv Cont] Urgent
Comment:
Reason For Exam: trauma
Cardiac Monitoring- Treatment ONCE
05/27/24 13:41
IV Insert/Care/Rem.- Treatment PRN
05/27/24 14:01
Acetaminophen 1000MG/100Ml [Ofirmev] 1,000 mg in 100 ml IV ONCE
Acetaminophen IV Indication:: ED Narcotic Naive Pt-ONCE
05/27/24 14:15
Complete Blood Count/With Diff Urgent
Comprehensive Metabolic Panel Urgent
05/27/24 14:22
Electrocardiogram (*1) Stat
Reason for Study: Other
Other Reason for Exam: chest pain
EKG- Treatment ONCE
Abnormal Lab Results
05/27/24
14:15
Abs Immat Gran (auto) 0.1 H 10^3/uL
(0-0.05)
Absolute Neuts (auto) 7.7 H 10^3/uL
(1.4-6.5)
Absolute Lymphs (auto) 0.9 L 10^3/uL
(1.2-3.4)
Absolute Monos (auto) 0.7 H 10^3/uL
(0.1-0.6)
Neutrophils % 80.6 H %
(42.2-75.2)
Lymphocytes % 9.8 L %
(20.5-51.1)
BUN 23 H mg/dl
(7-17)
Calcium 10.4 H mg/dl
(8.4-10.2)
05/27/24 14:15
05/27/24 14:15
Vital Signs
Initial and Last Documented VS:
Initial Vital Signs
Temp Pulse Resp BP Pulse Ox
97.5 F 66 16 110/67 97
05/27/24 12:16 05/27/24 12:16 05/27/24 12:16 05/27/24 12:16 05/27/24 12:16
Last Documented Vital Signs
Temp Pulse Resp BP Pulse Ox
97.5 F 66 16 110/67 97
05/27/24 12:16 05/27/24 12:16 05/27/24 12:16 05/27/24 12:16 05/27/24 12:16
MDM/Problems Addressed
Differential Diagnosis Includes:
Not limited to head injury, chest contusion versus sternal injury to chest, rib fracture internal abdominal injury versus contusion
MDM/Problems Addressed:
Patient had a witnessed fall by caregiver landed face forward on grass hitting face however no lacerations. She does have history dementia has not blood thinners CT head performed and negative. Patient complained of tenderness throughout the chest
and abdomen. Though no obvious abnormalities on exam CT chest abdomen was done and negative for acute injury. will plan to d/c home.
*Radiology
Radiology exam reviewed: radiology read reviewed
*Critical Care Note
Total Time (30-74mins, 75-104mins- exclusive of procedures): Not Applicable
ED Attending Note
-
Portions of this chart may have been created with voice recognition software.� Occasional wrong word or��sound alike� substitutions may have occurred due to the inherent limitations of voice recognition software.
Discharge Plan
Departure
Patient Disposition: Home (Routine Discharge)
Date of Disposition: 05/27/24
Time of Disposition: 16:16
Patient with high blood pressure during this ER visit?: No
Condition: Fair
Covid-19: Not Applicable
Discharge Problem:
Fall, Contusion
Instructions: Contusion (DC)
Prescriptions:
No Action
afbwogcwsnw-hgteohvle-gpb C-Mn 1 CAP capsule
1 cap PO DAILY
Patient Comments:
pt poor historian
vitamin B complex-folic acid [Super B Maxi Complex] 0.4 MG tablet
0.4 mg PO DAILY
topiramate 25 MG tablet
50 mg PO BID
mirtazapine 30 MG tablet
30 mg PO HS
ferrous sulfate [FeroSul] 325 MG tablet
325 mg PO DAILY
quetiapine 25 MG tablet
50 mg PO HS
donepezil 10 MG tablet
10 mg PO HS
ascorbic acid (vitamin C) [Vitamin C] 500 MG tablet
500 mg PO DAILY
gabapentin 300 MG capsule
300 mg PO BID
esomeprazole magnesium [Nexium] 20 MG capsule,delayed release(DR/EC)
20 mg PO DAILY
oxycodone 5 MG tablet
5 mg PO Q4HPRN PRN (Reason: moderate pain)
escitalopram oxalate 20 MG tablet
20 mg PO DAILY
aripiprazole 5 MG tablet
5 mg PO DAILY
memantine 10 MG tablet
10 mg PO BID
fish oil-dha-epa 1 EACH capsule
2 ea PO BID
calcium carbonate-vitamin D3 [Oyster Shell Calcium-Vit D3] 500 MG tablet
1 tab PO BID
cholecalciferol (vitamin D3) 1,000 UNITS tablet
1,000 units PO DAILY
multivitamin with folic acid [Tab-A-Marina] 1 TABLET tablet
1 tab PO DAILY
psyllium husk [Metamucil] 0.4 GM capsule
0.4 gm PO DAILY
aspirin 81 MG tablet,chewable
81 mg PO BID
lidocaine [Aspercreme (lidocaine)] 1 PATCH adhesive patch,medicated
1 patch topical DAILY Qty: 10 0RF
Rx Instructions:
apply on hip
Referrals:
Giovany Briceno MD [Family Provider] -
Activity Restrictions/Additional Instructions:
As discussed CAT scans were negative for acute injury. symptoms are consistent with contusion. Patient may have Tylenol every 4-6 hours as needed. You may ice over the affected areas for the next 24 hours 20 minutes at a time several times a day.
Follow-up with family doctor as needed in the next several days for reevaluation. Return if any worsening of symptoms
Interventions
Interventions:
*Risk Screen - Suicide Last Done: 05/27/24 14:00
*General Assessment Last Done: 05/27/24 14:00
*Neglect/Abuse Screening Last Done: 05/27/24 14:00
*ED COVID-19 Vaccine History Last Done: 05/27/24 14:00
ED-Musculoskeletal Assessment Last Done: 05/27/24 14:00
ED- Neurological Assessment Last Done: 05/27/24 14:00
ED-Skin Assessment Last Done: 05/27/24 14:00
Discharge Date and Time
Print Language: ANGUILLAN
[2024-05-27] MEDS: OFIRMEV 100 IV (14:20)
[2024-05-27 14:34] LABS: % Basophils 0.6 % (0-2); % Eosinophils 1.3 % (0-6); % Immature Granulocytes 0.5 % (0-0.5); % Lymphocytes 9.8 % (20.5-51.1); % Monocytes 7.2 % (1.7-9.3); % Neutrophils 80.6 % (42.2-75.2); Absolute Basophils 0.1 10^3/uL (0-0.2); Absolute Eosinophils 0.1 10^3/uL (0-0.7); Absolute Immature Granulocytes 0.1 10^3/uL (0-0.05); Absolute Lymphocytes 0.9 10^3/uL (1.2-3.4); Absolute Monocytes 0.7 10^3/uL (0.1-0.6); Absolute Neutrophils 7.7 10^3/uL (1.4-6.5); Hematocrit 41.4 % (37.0-47.0); Hemoglobin 13.8 g/dL (12.0-16.0); Mean Corp Hgb Conc. 33.3 g/dL (33.0-37.0); Mean Corpuscular Hgb 30.3 pg (27.0-31.0); Mean Corpuscular Volume 90.8 fL (81.0-99.0); Mean Platelet Volume 9.6 fL (7.4-10.4); Nucleated Red Blood Cells % 0 %; Platelet Count 290 10^3/uL (130-400); Red Blood Cell Count 4.56 10^6/uL (4.20-5.40); Red Cell Dist. Width 13.9 % (11.5-14.5); White Blood Cell Count 9.6 10^3/uL (4.8-10.8)
[2024-05-27 14:46] LABS: ALT (SGPT) 22 U/L (0-35); AST (SGOT) 31 U/L (14-36); Alkaline Phosphatase 81 U/L (38-126); Blood Urea Nitrogen 23 mg/dl (7-17); Calcium 10.4 mg/dl (8.4-10.2); Carbon Dioxide 26 mmol/L (22-30); Chloride 104 mmol/L (98-107); Glucose 93 mg/dl (70-99); Potassium 4.1 mmol/L (3.5-5.1); Sodium 140 mmol/L (135-145); Total Bilirubin 0.4 mg/dl (0.2-1.3); Total Protein 6.7 g/dl (6.3-8.2); eGFR > 60.00
[2024-05-27 16:37] VITALS: BP 112/68
== END 2024-05-27 16:42 | disposition home or self-care (01) ==
LOC: EMR 12:14
PROVIDERS: Nurse Practitioner; EMERGENCY PHYSICIAN Student in an Organized Health Care Education/Training Program; FAMILY PHYSICIAN Internal Medicine Geriatric Medicine
DX: S30.1XXA Contusion of abdominal wall, initial encounter (principal); W01.0XXA Fall on same level from slipping, tripping and stumbling without subsequent striking against object, initial encounter; Z87.891 Personal history of nicotine dependence; F02.83 Dementia in other diseases classified elsewhere, unspecified severity, with mood disturbance
CPT/HCPCS: 99285; 96374; 70450; 71260; 74177; 80053; 85025; 93005; Q9967

== ENCOUNTER 2024-06-05 12:21 | Emergency (ER) | payer MEDICARE, BC, SELFPAY ==
[2024-06-05 12:26] VITALS: BP 130/93
[2024-06-05 12:37] VITALS: BP 130/93
[2024-06-05 13:00] VITALS: BP 129/64
[2024-06-05 14:01] VITALS: BP 115/78
--- NOTE | 2024-06-05 14:01 | ED.GENMED ---
History of Present Illness
<Soy Alva Jr., PA-C - Last Filed: 06/06/24 17:34>
General
Chief Complaint: Fall
Source: patient
Exam Limitations: none
Time Seen by Provider: 06/05/24 12:52
Nursing documentation reviewed up to this point in time: agreed with
History of Present Illness
History of Present Illness:
78-year-old female presenting to the emergency department after fall. Tripped today hit her head right knee also claims her wrist are uncomfortable. She does not remember the event she does have a dementia. She has had recent falls that were
similar in the past.
Past History
<Soy Alva Jr., PA-C - Last Filed: 06/06/24 17:34>
Past History
ED Past Medical History: Cancer (Colon cancer ), Psychiatric (Depression, bipolar disorder ), Other (Dementia ) and Other (Osteoarthritis )
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
Left hip revision, ) and Other (Cataracts)
Social History
Tobacco: Former smoker
Alcohol: Occasional
Personal:
Living: with family
Employment: Retired
Family History
Family History: Other (Noncontributory)
Review of Systems
<Soy Alva Jr., PA-C - Last Filed: 06/06/24 17:34>
Review of Systems
Allergies reviewed?: Yes
All Other Systems: ROS reviewed and negative except as documented in HPI and ROS
Phy Exam
<Soy Alva Jr., PA-C - Last Filed: 06/06/24 17:34>
Physical Exam
Physical Exam:
GENERAL: Alert , in no apparent distress
EYE: pupils equal and reactive
NECK: Supple, no significant adenopathy.
ENT: Slight bruise to the right forehead o/p clr, mmm.
CARDIAC: Regular rate and rhythm .
LUNGS: Clear breath sounds bilaterally, no acute respiratory distress, no wheezes/rales/rhonchi
ABDOMEN: Soft, without focal tenderness, no r/g, no cvat
NEUROLOGICAL: Alert, no focal neuro deficits 5-5 upper and lower extremity strength normal sensation with palpating bilaterally
SKIN: Warm and dry, skin intact.
MUSCULOSKELETAL: No edema, well perfused.
PSYCH: Normal and appropriate interaction.
Course
<Soy Alva Jr., PONCHO - Last Filed: 06/06/24 17:34>
Orders/Labs/Results
Orders:
Orders
06/05/24 12:41
CT Head W/o Iv Contrast Urgent
Comment:
Reason For Exam: fell, hit head
Knee, Right 4 or More Views [CR Knee- Right 4 Or More View*] Urgent
Comment:
Reason For Exam: fall
06/05/24 14:03
Pt Eval And Treat Stat
Treatment: after CT
Activity Level: Ambulate
06/05/24 15:13
Knee Immobilizer Right-Treatme ONCE
06/05/24 16:16
Case Management Consult ONCE
Case Management Consult: Discharge Planning
06/05/24 17:03
Acetaminophen [Tylenol] 650 mg PO NOW STA
Vital Signs
Initial and Last Documented VS:
Initial Vital Signs
Temp Pulse Resp BP Pulse Ox
97.5 F 64 18 130/93 97
06/05/24 12:26 06/05/24 12:26 06/05/24 12:26 06/05/24 12:26 06/05/24 12:26
Last Documented Vital Signs
Temp Pulse Resp BP Pulse Ox
97.5 F 69 14 116/62 97
06/05/24 12:37 06/05/24 13:55 06/05/24 13:55 06/05/24 15:13 06/05/24 12:37
<Carla Mtz PA-C - Last Filed: 06/05/24 16:33>
Orders/Labs/Results
Orders:
Orders
06/05/24 12:41
CT Head W/o Iv Contrast Urgent
Comment:
Reason For Exam: fell, hit head
Knee, Right 4 or More Views [CR Knee- Right 4 Or More View*] Urgent
Comment:
Reason For Exam: fall
06/05/24 14:03
Pt Eval And Treat Stat
Treatment: after CT
Activity Level: Ambulate
06/05/24 15:13
Knee Immobilizer Right-Treatme ONCE
06/05/24 16:16
Case Management Consult ONCE
Case Management Consult: Discharge Planning
06/05/24 17:03
Acetaminophen [Tylenol] 650 mg PO NOW STA
Vital Signs
Initial and Last Documented VS:
Initial Vital Signs
Temp Pulse Resp BP Pulse Ox
97.5 F 64 18 130/93 97
06/05/24 12:26 06/05/24 12:26 06/05/24 12:26 06/05/24 12:26 06/05/24 12:26
Last Documented Vital Signs
Temp Pulse Resp BP Pulse Ox
97.5 F 69 14 116/62 97
06/05/24 12:37 06/05/24 13:55 06/05/24 13:55 06/05/24 15:13 06/05/24 12:37
<Soy Alva Jr., PA-C - Last Filed: 06/06/24 17:34>
MDM/Problems Addressed
MDM/Problems Addressed:
78-year-old female presenting to the emergency department today with concerns of trip and fall hitting her head. Patient is on aspirin but no other blood thinners. She is a small bruise to her right forehead also complains of wrist and knee
discomfort. Plan for CT scan of the head as well as x-rays of the wrist and knee. X-ray of the knee showing patellar fracture. Case discussed with orthopedics placed in a knee immobilizer. PT will assess the patient for her current ambulation
status. Otherwise head CT without emergent findings.
<Carla Mtz PA-C - Last Filed: 06/05/24 16:33>
*Critical Care Note
Total Time (30-74mins, 75-104mins- exclusive of procedures): Not Applicable
<Carla Mtz PA-C - Last Filed: 06/05/24 16:33>
Update Note
Update Note:
Update 4:33 PM: Case management in to assess patient. They will arrange for at home PT/nursing care. Patient stable for discharge with orthopedic follow-up. Return precautions discussed.
ED Attending Note
<Soy Alva Jr., PA-C - Last Filed: 06/06/24 17:34>
-
Portions of this chart may have been created with voice recognition software.� Occasional wrong word or��sound alike� substitutions may have occurred due to the inherent limitations of voice recognition software.
Discharge Plan
Departure
Patient Disposition: Home (Routine Discharge)
Date of Disposition: 06/05/24
Time of Disposition: 16:33
Patient with high blood pressure during this ER visit?: No
Condition: Good
Covid-19: Not Applicable
Discharge Problem:
Fracture, patella
Instructions: Patella Fracture (DC)
Prescriptions:
No Action
shlwnkxxvhk-rplkoiuoe-cce C-Mn 1 CAP capsule
1 cap PO DAILY
Patient Comments:
pt poor historian
vitamin B complex-folic acid [Super B Maxi Complex] 0.4 MG tablet
0.4 mg PO DAILY
topiramate 25 MG tablet
50 mg PO BID
mirtazapine 30 MG tablet
30 mg PO HS
ferrous sulfate [FeroSul] 325 MG tablet
325 mg PO DAILY
quetiapine 25 MG tablet
50 mg PO HS
donepezil 10 MG tablet
10 mg PO HS
ascorbic acid (vitamin C) [Vitamin C] 500 MG tablet
500 mg PO DAILY
gabapentin 300 MG capsule
300 mg PO BID
esomeprazole magnesium [Nexium] 20 MG capsule,delayed release(DR/EC)
20 mg PO DAILY
oxycodone 5 MG tablet
5 mg PO Q4HPRN PRN (Reason: moderate pain)
escitalopram oxalate 20 MG tablet
20 mg PO DAILY
aripiprazole 5 MG tablet
5 mg PO DAILY
memantine 10 MG tablet
10 mg PO BID
fish oil-dha-epa 1 EACH capsule
2 ea PO BID
calcium carbonate-vitamin D3 [Oyster Shell Calcium-Vit D3] 500 MG tablet
1 tab PO BID
cholecalciferol (vitamin D3) 1,000 UNITS tablet
1,000 units PO DAILY
multivitamin with folic acid [Tab-A-Marina] 1 TABLET tablet
1 tab PO DAILY
psyllium husk [Metamucil] 0.4 GM capsule
0.4 gm PO DAILY
aspirin 81 MG tablet,chewable
81 mg PO BID
lidocaine [Aspercreme (lidocaine)] 1 PATCH adhesive patch,medicated
1 patch topical DAILY Qty: 10 0RF
Rx Instructions:
apply on hip
Referrals:
Giovany Briceno MD [Family Provider] -
Nando Salas MD [Active] - Follow up in 5-7 days
Activity Restrictions/Additional Instructions:
You came to the emergency department today with concerns after a fall. You are found have a broken kneecap. Please follow closely with orthopedics. You can ambulate but only with a knee immobilizer on with your leg fully extended. Please
otherwise return for any worsening, new or concerning symptoms.
Interventions
Interventions:
*Risk Screen - Suicide Last Done: 06/05/24 12:37
*General Assessment Last Done: 06/05/24 12:37
*Neglect/Abuse Screening Last Done: 06/05/24 12:37
ED- Fall Risk Assessment Last Done: 06/05/24 13:00
*ED COVID-19 Vaccine History Last Done: 06/05/24 12:39
*Nursing Disposition Last Done: 06/05/24 16:50
ED-Musculoskeletal Assessment Last Done: 06/05/24 13:00
ED- Neurological Assessment Last Done: 06/05/24 13:00
ED-Skin Assessment Last Done: 06/05/24 13:00
Discharge Date and Time
Discharge Date/Time: 06/05/24 17:00
Print Language: SURINAMESE
[2024-06-05 15:13] VITALS: BP 116/62
--- NOTE | 2024-06-05 16:32 | CM ---
Addendum entered by Gillian Donahue RN 06/05/24 17:03:
[facility] has accepted.
Original Note:
CM spoke with patient and . Patient was pleasant and cooperative, but confused. Patient's is agreeable to [facility] as they have been in the home in the past. CM sent referral. CM updated bedside RN and ED PA.
[2024-06-05] MEDS: TYLENOL 650 MG PO (17:09)
== END 2024-06-05 17:00 | disposition home or self-care (01) ==
LOC: EMR 12:21
PROVIDERS: EMERGENCY PHYSICIAN Student in an Organized Health Care Education/Training Program; FAMILY PHYSICIAN Internal Medicine Geriatric Medicine
DX: S82.041A Displaced comminuted fracture of right patella, initial encounter for closed fracture (principal); S00.83XA Contusion of other part of head, initial encounter; W01.0XXA Fall on same level from slipping, tripping and stumbling without subsequent striking against object, initial encounter; F03.90 Unspecified dementia, unspecified severity, without behavioral disturbance, psychotic disturbance, mood disturbance, and anxiety; Z85.038 Personal history of other malignant neoplasm of large intestine; M19.90 Unspecified osteoarthritis, unspecified site; Z79.82 Long term (current) use of aspirin; Z87.891 Personal history of nicotine dependence; Z96.643 Presence of artificial hip joint, bilateral; Z96.652 Presence of left artificial knee joint
CPT/HCPCS: 29505; 99284; 70450; 73564

== ENCOUNTER 2024-08-12 17:13 | Emergency (ER) | payer MEDICARE, BC, SELFPAY ==
[2024-08-12 17:13] VITALS: BMI 23.6
[2024-08-12 17:17] VITALS: BP 121/72
[2024-08-12 17:44] LABS: % Basophils 0.4 % (0-2); % Eosinophils 1.1 % (0-6); % Immature Granulocytes 0.4 % (0-0.5); % Lymphocytes 5.4 % (20.5-51.1); % Monocytes 5.4 % (1.7-9.3); % Neutrophils 87.3 % (42.2-75.2); Absolute Basophils 0.1 10^3/uL (0-0.2); Absolute Eosinophils 0.2 10^3/uL (0-0.7); Absolute Immature Granulocytes 0.1 10^3/uL (0-0.05); Absolute Lymphocytes 0.7 10^3/uL (1.2-3.4); Absolute Monocytes 0.7 10^3/uL (0.1-0.6); Absolute Neutrophils 11.7 10^3/uL (1.4-6.5); Hematocrit 43.4 % (37.0-47.0); Hemoglobin 14.3 g/dL (12.0-16.0); Mean Corp Hgb Conc. 32.9 g/dL (33.0-37.0); Mean Corpuscular Hgb 30.2 pg (27.0-31.0); Mean Corpuscular Volume 91.6 fL (81.0-99.0); Mean Platelet Volume 9.6 fL (7.4-10.4); Nucleated Red Blood Cells % 0 %; Platelet Count 281 10^3/uL (130-400); Red Blood Cell Count 4.74 10^6/uL (4.20-5.40); Red Cell Dist. Width 13.8 % (11.5-14.5); White Blood Cell Count 13.4 10^3/uL (4.8-10.8)
[2024-08-12 17:52] LABS: ALT (SGPT) 22 U/L (0-35); AST (SGOT) 30 U/L (14-36); Albumin 4.1 g/dl (3.5-5.0); Alkaline Phosphatase 112 U/L (38-126); Blood Urea Nitrogen 28 mg/dl (7-17); Carbon Dioxide 29 mmol/L (22-30); Chloride 101 mmol/L (98-107); Estimated Creatinine Clearance 51 ml/min; Glucose 79 mg/dl (70-99); Potassium 4.4 mmol/L (3.5-5.1); Sodium 140 mmol/L (135-145); Total Bilirubin 0.2 mg/dl (0.2-1.3); Total Protein 6.6 g/dl (6.3-8.2); eGFR > 60.00
[2024-08-12 18:11] LABS: Troponin I < 0.012 ng/ml
--- NOTE | 2024-08-12 18:52 | ED.GENMED ---
Addendum entered and electronically signed by Uziel Angulo PA-C 08/16/24 07:58:
Urine culture shows E. coli sensitive to Keflex. On Keflex. No indication for any change
Original Note:
History of Present Illness
General
Chief Complaint: Chest Pain
Source: patient, spouse ( states she began complaining of pain at 5 PM.) and family
Exam Limitations: none
Time Seen by Provider: 08/12/24 18:29
Nursing documentation reviewed up to this point in time: agreed with
History of Present Illness
History of Present Illness:
78-year-old female presents emergency department due to chest pain and abdominal pain. This began at 5 PM tonight. She complains of pain all over. It is difficult to get a clear history due to her dementia.
Past History
Past History
ED Past Medical History: Cancer (Colon cancer ), Psychiatric (Depression, bipolar disorder ), Other (Dementia ) and Other (Osteoarthritis )
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
Left hip revision, ) and Other (Cataracts)
Social History
Tobacco: Former smoker
Alcohol: Occasional
Personal:
Living: with family
Employment: Retired
Family History
Family History: Other (Noncontributory)
Review of Systems
Review of Systems
Allergies reviewed?: Yes
All Other Systems: Not applicable
Constitutional: Reports no symptoms
EENT: Reports no symptoms
Respiratory: Reports no symptoms
Cardiac: Reports chest pain
ABD/GI: Reports abdominal pain
: Reports no symptoms
Musculoskeletal: Reports no symptoms
Skin: Reports no symptoms
Neurological: Reports no symptoms
Endocrine: Reports no symptoms
Hematologic/Lymphatic: Reports no symptoms
Psychiatric: Reports no symptoms
Phy Exam
Physical Exam
Physical Exam:
Physical Exam
General: no apparent distress, not acutely ill
Neck: supple. no meningeal signs. normal posterior pharynx
Heart: s1/s2 regular rate and rhythm, no murmur. equal radial
pulses.
HEENT: Pupils equal round reactive to light, EOMI
Lungs: no acute respiratory distress. clear bilaterally
Abdomen: normal bowel sounds. Mild right upper quadrant tenderness. no CVAT
Neuro: alert and oriented. no focal neurological deficits cranial nerves II through XII intact
Skin: no rash
Psychiatric: well kept. interactive and cooperative
Extremities: no edema. no calf tenderness. negative homans. good distal pulses
Scores
Heart Score for Chest Pain Patients
STEMI patient?: No
History: Slightly or Non-Suspicious
ECG: Nonspecific Repolarization
Age: >/= 65 years
Risk Factors: 1 or 2 Risk Factors
Troponin: </= Normal Limit
Heart Score for Chest Pain Patients: 4
Heart Score Risk: 20.3% MACE over next 6 weeks
Course
Orders/Labs/Results
Orders:
Orders
08/12/24 17:14
Electrocardiogram (*1) Urgent
Reason for Study: Chest Pain
EKG- Treatment ONCE
08/12/24 17:15
CXR2 [CR Chest - 2 Views ] Urgent
Comment:
Reason For Exam: pain
08/12/24 17:26
Complete Blood Count/With Diff Urgent
Comprehensive Metabolic Panel Urgent
Troponin I Urgent
08/12/24 18:42
CT Abd/pelvis W Iv Cont Urgent
Comment:
Reason For Exam: diffuse abdominal pain
US Abdomen Limited Urgent
Comment: H/O OF LESLIE
Reason For Exam: RUQ pain
08/12/24 19:46
Lorazepam [Ativan] 0.5 mg IV NOW STA
08/12/24 21:44
Urinalysis Reflex To Culture Urgent
Date Specimen was Collected: 08/12/24
Time Specimen was Collected: 21:42
Urine Microscopic Reflex Cult Urgent
Urine Culture Urgent
HAILEY Source: U
Specimen Description:
Date Specimen was Collected: 08/12/24
Time Specimen was Collected: 21:42
08/12/24 22:16
CefTRIAXone [Rocephin] 2,000 mg IV NOW STA
08/12/24 22:35
Sterile Water [Sterile Water For Injection] 20 ml .ROUTE .[facility]
Abnormal Lab Results
08/12/24 08/12/24
17:26 21:44
WBC 13.4 H 10^3/uL
(4.8-10.8)
MCHC 32.9 L g/dL
(33.0-37.0)
Abs Immat Gran (auto) 0.1 H 10^3/uL
(0-0.05)
Absolute Neuts (auto) 11.7 H 10^3/uL
(1.4-6.5)
Absolute Lymphs (auto) 0.7 L 10^3/uL
(1.2-3.4)
Absolute Monos (auto) 0.7 H 10^3/uL
(0.1-0.6)
Neutrophils % 87.3 H %
(42.2-75.2)
Lymphocytes % 5.4 L %
(20.5-51.1)
BUN 28 H mg/dl
(7-17)
Urine Nitrite (Reflex) Positive A
(Negative)
Leukocyte Esterase Rfl 2+ A
(Negative)
Urine WBC (Reflex) 50-60 A /HPF
(0-5)
Urine Bacteria (Reflex) Many A
(Negative)
08/12/24 17:26
08/12/24 17:26
Vital Signs
Initial and Last Documented VS:
Initial Vital Signs
Temp Pulse Resp BP Pulse Ox
98.4 F 76 20 121/72 99
08/12/24 17:17 08/12/24 17:17 08/12/24 17:17 08/12/24 17:17 08/12/24 17:17
Last Documented Vital Signs
Temp Pulse Resp BP Pulse Ox
99.2 F 72 16 118/70 97
08/12/24 19:48 08/12/24 22:44 08/12/24 22:44 08/12/24 22:44 08/12/24 22:44
MDM/Problems Addressed
Differential Diagnosis Includes:
ACS, PE, diverticulitis
MDM/Problems Addressed:
78 yo female with constipation, UTI. Denies chest pain at this time. Doubt ACS or PE. Stable for dc.
*Radiology
Radiology exam reviewed: preliminary read by ED provider (Chest x-ray no acute findings) and radiology read reviewed (ct a/p constipation, cystitis)
*Pulse Oximetry
Patient hypoxic: no
*EKG
Interpreted by ED Provider?: Yes
EKG Intrepretation Date: 08/12/24
EKG Intrepretation Time: 18:09
Interpretation: abnormal
Comparison EKG: changes noted
Heart Rate: 76
Rate: normal
Rhythm: sinus
[place]: normal axis
Interval: normal interval
QRS Pattern: normal QRS
Ischemia: non-specific ST changes
*Arts Therapist Interpretation
Rate: normal
Interpretation: normal
Heart Rate: 75
Rhythm: sinus
*Critical Care Note
Total Time (30-74mins, 75-104mins- exclusive of procedures): Not Applicable
Data Reviewed
Review of Other/Old Records Reveals: Testing (ekg similar to prior without pacs)
Source: records
Patient Management
Social determinants of health affecting care: Living situation and Strong social support
Escalation/DeEscalation of care consider admission/obs:
admit not indicated
ED Attending Note
-
Portions of this chart may have been created with voice recognition software.� Occasional wrong word or��sound alike� substitutions may have occurred due to the inherent limitations of voice recognition software.
Discharge Plan
Departure
Patient Disposition: Home (Routine Discharge)
Date of Disposition: 08/12/24
Time of Disposition: 22:17
Patient with high blood pressure during this ER visit?: No
Condition: Good
Discharge Problem:
Acute UTI, Constipation
Instructions: Urinary tract infections in adults, Constipation in adults, Chest Pain PCP Follow Up
Prescriptions:
New
cephalexin 500 mg capsule
500 mg PO BID 7 Days Qty: 14 0RF
No Action
jkewvjbrzot-ajgfffyav-yog C-Mn 1 CAP capsule
1 cap PO DAILY
Patient Comments:
pt poor historian
vitamin B complex-folic acid [Super B Maxi Complex] 0.4 MG tablet
0.4 mg PO DAILY
topiramate 25 MG tablet
50 mg PO BID
mirtazapine 30 MG tablet
30 mg PO HS
ferrous sulfate [FeroSul] 325 MG tablet
325 mg PO DAILY
quetiapine 25 MG tablet
50 mg PO HS
donepezil 10 MG tablet
10 mg PO HS
ascorbic acid (vitamin C) [Vitamin C] 500 MG tablet
500 mg PO DAILY
gabapentin 300 MG capsule
300 mg PO BID
esomeprazole magnesium [Nexium] 20 MG capsule,delayed release(DR/EC)
20 mg PO DAILY
oxycodone 5 MG tablet
5 mg PO Q4HPRN PRN (Reason: moderate pain)
escitalopram oxalate 20 MG tablet
20 mg PO DAILY
aripiprazole 5 MG tablet
5 mg PO DAILY
memantine 10 MG tablet
10 mg PO BID
fish oil-dha-epa 1 EACH capsule
2 ea PO BID
calcium carbonate-vitamin D3 [Oyster Shell Calcium-Vit D3] 500 MG tablet
1 tab PO BID
cholecalciferol (vitamin D3) 1,000 UNITS tablet
1,000 units PO DAILY
multivitamin with folic acid [Tab-A-Marina] 1 TABLET tablet
1 tab PO DAILY
psyllium husk [Metamucil] 0.4 GM capsule
0.4 gm PO DAILY
aspirin 81 MG tablet,chewable
81 mg PO BID
lidocaine [Aspercreme (lidocaine)] 1 PATCH adhesive patch,medicated
1 patch topical DAILY Qty: 10 0RF
Rx Instructions:
apply on hip
Referrals:
Giovany Briceno MD [Family Provider] -
Interventions
Interventions:
*Risk Screen - Suicide Last Done: 08/12/24 17:17
*General Assessment Last Done: 08/12/24 17:17
*Neglect/Abuse Screening Last Done: 08/12/24 17:17
ED- Fall Risk Assessment Last Done: 08/12/24 17:17
*Nursing Disposition Last Done: 08/12/24 22:49
ED- Cardiac Assessment Last Done: 08/12/24 17:17
Discharge Date and Time
Discharge Date/Time: 08/12/24 22:58
Print Language: AFGHAN
[2024-08-12 19:48] VITALS: BP 104/56
[2024-08-12] MEDS: ATIVAN 0.5 MG IV (19:52)
[2024-08-12 21:49] LABS: Urine Albumin Trace (Neg - Trace); Urine Bilirubin Negative (Negative); Urine Character Clear (Clear); Urine Color Yellow; Urine Glucose Negative (Negative); Urine Ketone Negative (Negative); Urine Leukocyte 2+ (Negative); Urine Nitrite Positive (Negative); Urine Occult Blood Negative (Negative); Urine Urobilinogen Negative (Neg - 1+)
[2024-08-12 22:06] LABS: Urine Bacteria Many (Negative); Urine Epithelial Cast 0-2 /LPF; Urine Red Blood Cell 0-2 /HPF (0-2); Urine Urothelial Cell 0-2 /LPF (FEW); Urine White Cell 50-60 /HPF (0-5)
[2024-08-12] MEDS: ROCEPHIN 2000 MG IV (22:36)
[2024-08-12 22:44] VITALS: BP 118/70
== END 2024-08-12 22:58 | disposition home or self-care (01) ==
LOC: EMR 17:13
PROVIDERS: EMERGENCY PHYSICIAN Emergency Medicine; FAMILY PHYSICIAN Internal Medicine Geriatric Medicine
DX: N39.0 Urinary tract infection, site not specified (principal); K59.00 Constipation, unspecified; F03.93 Unspecified dementia, unspecified severity, with mood disturbance; F31.9 Bipolar disorder, unspecified; M19.90 Unspecified osteoarthritis, unspecified site; Z85.038 Personal history of other malignant neoplasm of large intestine; Z87.891 Personal history of nicotine dependence; Z90.13 Acquired absence of bilateral breasts and nipples; Z90.49 Acquired absence of other specified parts of digestive tract; Z90.710 Acquired absence of both cervix and uterus; Z96.643 Presence of artificial hip joint, bilateral; Z96.652 Presence of left artificial knee joint
CPT/HCPCS: 99284; 96374; 96375; 71046; 74177; 76705; 80053; 81003; 81015; 84484; 85025; 87086; 87088; 87186; 93005; Q9967

== ENCOUNTER 2024-09-14 10:34 | Emergency (ER) | payer MEDICARE, BC, SELFPAY ==
[2024-09-14 10:58] VITALS: BP 136/70
--- NOTE | 2024-09-14 11:01 | ED.GENMED ---
ED Provider Triage
<Uziel Angulo PA-C - Last Filed: 09/14/24 11:01>
-
Patient seen by provider in Triage?: Seen in Triage
Attestation: A medical screening examination has been initiated by a qualified medical provider. Based on the assessment performed at this time, it has been determined that an emergent medical condition may exist and the patient has been informed
that further medical evaluation and possible additional diagnostic testing may be needed.
HPI: 78-year-old female with dementia presents with family who state the patient had several episodes of vomiting since yesterday. Patient denies any pain. She actually had breakfast this morning without vomiting but she seemed more tired than
usual so they brought her in. No reported fever. Vital signs are stable at triage. Labs ordered. Patient is denying pain
GENERAL: Alert , in no apparent distress
EYE: No visual abnormalities.
NECK: Trachea midline
ENT: No visible abnormalities.
LUNGS: No acute respiratory distress
NEUROLOGICAL: Alert and oriented
SKIN: Skin intact. No visible changes.
MUSCULOSKELETAL: Moving extremities normally
PSYCH: Normal and appropriate interaction.
This is a medical evaluation conducted in person to initiate diagnostic evaluation and provide initial therapeutics. Please see further documentation by the treating clinician.
History of Present Illness
<Uziel Angulo PA-C - Last Filed: 09/14/24 11:01>
General
Chief Complaint: Abdominal Symptoms
Time Seen by Provider: 09/14/24 12:46
<Haile Smith DO - Last Filed: 09/14/24 18:23>
General
Source: family
Exam Limitations: none
Nursing documentation reviewed up to this point in time: agreed with
History of Present Illness
History of Present Illness:
Agree with HPI by triage provider Johnny Angulo.
Past History
<Uziel Angulo PA-C - Last Filed: 09/14/24 11:01>
Past History
ED Past Medical History: Cancer (Colon cancer ), Psychiatric (Depression, bipolar disorder ), Other (Dementia ) and Other (Osteoarthritis )
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
Left hip revision, ) and Other (Cataracts)
Social History
Tobacco: Former smoker
Alcohol: Occasional
Personal:
Living: with family
Employment: Retired
Family History
Family History: Other (Noncontributory)
Review of Systems
<Haile Smith, DO - Last Filed: 09/14/24 18:23>
Review of Systems
Allergies reviewed?: Yes
All Other Systems: Not applicable
Constitutional: Reports fatigue; Denies fever
EENT: Reports no symptoms
Respiratory: Reports no symptoms
Cardiac: Reports no symptoms
ABD/GI: Reports abdominal pain and vomiting; Denies diarrhea, bloody stools or black stools
: Reports no symptoms
Musculoskeletal: Reports no symptoms
Skin: Reports no symptoms
Neurological: Reports no symptoms
Endocrine: Reports no symptoms
Hematologic/Lymphatic: Reports no symptoms
Psychiatric: Reports no symptoms
Phy Exam
<Haile Smith, DO - Last Filed: 09/14/24 18:23>
Physical Exam
Physical Exam:
Physical Exam
General: no apparent distress, not acutely ill
Neck: supple. no meningeal signs. normal posterior pharynx
Heart: s1/s2 regular rate and rhythm, no murmur. equal radial
pulses.
HEENT: Pupils equal round reactive to light, EOMI
Lungs: no acute respiratory distress. clear bilaterally
Abdomen: normal bowel sounds. Diffuse abdominal tenderness. no CVAT
Neuro: alert and oriented to person. no focal neurological deficits cranial nerves II through XII intact
Skin: no rash
Psychiatric: well kept. interactive and cooperative
Extremities: no edema. no calf tenderness. negative homans. good distal pulses
Course
<Uziel Angulo PA-C - Last Filed: 09/14/24 11:01>
Orders/Labs/Results
Orders:
Orders
09/14/24 11:30
Complete Blood Count/With Diff Urgent
Comprehensive Metabolic Panel Urgent
Lipase Urgent
09/14/24 13:10
Iohexol [Omnipaque] See Protocol PO NOW STA
09/14/24 14:37
CT Abd/pel (oral only)-[facility] Only Urgent
Comment:
Reason For Exam: diffuse abd pain, vomiting, lipase elevated
Abnormal Lab Results
09/14/24
11:30
Absolute Neuts (auto) 6.8 H 10^3/uL
(1.4-6.5)
Absolute Monos (auto) 0.8 H 10^3/uL
(0.1-0.6)
Lymphocytes % 17.9 L %
(20.5-51.1)
Calcium 10.4 H mg/dl
(8.4-10.2)
Lipase 415 H U/L
(23-300)
09/14/24 11:30
09/14/24 11:30
Vital Signs
Initial and Last Documented VS:
Initial Vital Signs
Temp Pulse Resp BP Pulse Ox
98.4 F 68 16 136/70 98
09/14/24 10:58 09/14/24 10:58 09/14/24 10:58 09/14/24 10:58 09/14/24 10:58
Last Documented Vital Signs
Temp Pulse Resp BP Pulse Ox
98.4 F 63 16 125/64 99
09/14/24 10:58 09/14/24 15:58 09/14/24 15:58 09/14/24 15:58 09/14/24 15:58
<Haile Smith, DO - Last Filed: 09/14/24 18:23>
Orders/Labs/Results
Orders:
Orders
09/14/24 11:30
Complete Blood Count/With Diff Urgent
Comprehensive Metabolic Panel Urgent
Lipase Urgent
09/14/24 13:10
Iohexol [Omnipaque] See Protocol PO NOW STA
09/14/24 14:37
CT Abd/pel (oral only)-DH Only Urgent
Comment:
Reason For Exam: diffuse abd pain, vomiting, lipase elevated
Abnormal Lab Results
09/14/24
11:30
Absolute Neuts (auto) 6.8 H 10^3/uL
(1.4-6.5)
Absolute Monos (auto) 0.8 H 10^3/uL
(0.1-0.6)
Lymphocytes % 17.9 L %
(20.5-51.1)
Calcium 10.4 H mg/dl
(8.4-10.2)
Lipase 415 H U/L
(23-300)
09/14/24 11:30
09/14/24 11:30
Vital Signs
Initial and Last Documented VS:
Initial Vital Signs
Temp Pulse Resp BP Pulse Ox
98.4 F 68 16 136/70 98
09/14/24 10:58 09/14/24 10:58 09/14/24 10:58 09/14/24 10:58 09/14/24 10:58
Last Documented Vital Signs
Temp Pulse Resp BP Pulse Ox
98.4 F 63 16 125/64 99
09/14/24 10:58 09/14/24 15:58 09/14/24 15:58 09/14/24 15:58 09/14/24 15:58
<Haile Smith DO - Last Filed: 09/14/24 18:23>
MDM/Problems Addressed
Differential Diagnosis Includes:
Peritonitis, diverticulitis, viral illness
MDM/Problems Addressed:
78-year-old female with nausea vomiting. Abdomen no rebound or guarding. CT abdomen pelvis no acute findings. Patient stable for discharge. Follow-up with primary care.
Chronic conditions affecting care: Neurological disorder (Dementia) and Cancer (Colon cancer)
<Haile Smith DO - Last Filed: 09/14/24 18:23>
*Radiology
Radiology exam reviewed: radiology read reviewed (CT abdomen pelvis no acute findings)
*Pulse Oximetry
Patient hypoxic: no
*EKG
Interpreted by ED Provider?: NA
*Bark Peeler Interpretation
Rate: Bark Peeler- N/A
*Critical Care Note
Total Time (30-74mins, 75-104mins- exclusive of procedures): Not Applicable
<DO Murphy Darden Last Filed: 09/14/24 18:23>
Patient Management
Social determinants of health affecting care: Living situation
Escalation/DeEscalation of care consider admission/obs:
Admission not indicated
ED Attending Note
<Uziel Angulo PA-C - Last Filed: 09/14/24 11:01>
-
Portions of this chart may have been created with voice recognition software.� Occasional wrong word or��sound alike� substitutions may have occurred due to the inherent limitations of voice recognition software.
<DO Murphy Darden Last Filed: 09/14/24 18:23>
ED Attending Note
Patient seen and examined by attending physician: Yes
Discharge Plan
Departure
Patient Disposition: Home (Routine Discharge)
Date of Disposition: 09/14/24
Time of Disposition: 16:17
Patient with high blood pressure during this ER visit?: Yes
Condition: Good
Discharge Problem:
Nausea and vomiting
Instructions: Nausea and Vomiting, Adult (DC), BLOOD PRESSURE
Prescriptions:
No Action
fhqctlqturr-ovbicwlrk-hfm C-Mn 1 CAP capsule
1 cap PO DAILY
Patient Comments:
pt poor historian
vitamin B complex-folic acid [Super B Maxi Complex] 0.4 MG tablet
0.4 mg PO DAILY
topiramate 25 MG tablet
50 mg PO BID
mirtazapine 30 MG tablet
30 mg PO HS
ferrous sulfate [FeroSul] 325 MG tablet
325 mg PO DAILY
quetiapine 25 MG tablet
50 mg PO HS
donepezil 10 MG tablet
10 mg PO HS
ascorbic acid (vitamin C) [Vitamin C] 500 MG tablet
500 mg PO DAILY
gabapentin 300 MG capsule
300 mg PO BID
esomeprazole magnesium [Nexium] 20 MG capsule,delayed release(DR/EC)
20 mg PO DAILY
oxycodone 5 MG tablet
5 mg PO Q4HPRN PRN (Reason: moderate pain)
escitalopram oxalate 20 MG tablet
20 mg PO DAILY
aripiprazole 5 MG tablet
5 mg PO DAILY
memantine 10 MG tablet
10 mg PO BID
fish oil-dha-epa 1 EACH capsule
2 ea PO BID
calcium carbonate-vitamin D3 [Oyster Shell Calcium-Vit D3] 500 MG tablet
1 tab PO BID
cholecalciferol (vitamin D3) 1,000 UNITS tablet
1,000 units PO DAILY
multivitamin with folic acid [Tab-A-Marina] 1 TABLET tablet
1 tab PO DAILY
psyllium husk [Metamucil] 0.4 GM capsule
0.4 gm PO DAILY
aspirin 81 MG tablet,chewable
81 mg PO BID
lidocaine [Aspercreme (lidocaine)] 1 PATCH adhesive patch,medicated
1 patch topical DAILY Qty: 10 0RF
Rx Instructions:
apply on hip
cephalexin 500 mg capsule
500 mg PO BID 7 Days Qty: 14 0RF
Referrals:
Giovany Briceno MD [Family Provider] - Call in 1-3 days for appt
Interventions
Interventions:
*Risk Screen - Suicide Last Done: 09/14/24 12:55
*General Assessment Last Done: 09/14/24 12:55
*Neglect/Abuse Screening Last Done: 09/14/24 12:55
ED- Fall Risk Assessment Last Done: 09/14/24 16:31
*ED COVID-19 Vaccine History Last Done: 09/14/24 12:55
*Nursing Disposition Last Done: 09/14/24 16:31
DM-Lclxax-Ndnxkitkgz Assessment Last Done: 09/14/24 12:54
Discharge Date and Time
Discharge Date/Time: 09/14/24 16:32
Print Language: EGYPTIAN
[2024-09-14 11:36] LABS: % Basophils 0.5 % (0-2); % Eosinophils 0.7 % (0-6); % Immature Granulocytes 0.3 % (0-0.5); % Lymphocytes 17.9 % (20.5-51.1); % Monocytes 8.7 % (1.7-9.3); % Neutrophils 71.9 % (42.2-75.2); Absolute Basophils 0.1 10^3/uL (0-0.2); Absolute Eosinophils 0.1 10^3/uL (0-0.7); Absolute Lymphocytes 1.7 10^3/uL (1.2-3.4); Absolute Monocytes 0.8 10^3/uL (0.1-0.6); Absolute Neutrophils 6.8 10^3/uL (1.4-6.5); Hematocrit 42.5 % (37.0-47.0); Hemoglobin 14.1 g/dL (12.0-16.0); Mean Corp Hgb Conc. 33.2 g/dL (33.0-37.0); Mean Corpuscular Volume 90.4 fL (81.0-99.0); Mean Platelet Volume 9.6 fL (7.4-10.4); Nucleated Red Blood Cells % 0 %; Platelet Count 271 10^3/uL (130-400); White Blood Cell Count 9.4 10^3/uL (4.8-10.8)
[2024-09-14 11:48] LABS: ALT (SGPT) 21 U/L (0-35); AST (SGOT) 31 U/L (14-36); Albumin 3.8 g/dl (3.5-5.0); Alkaline Phosphatase 73 U/L (38-126); Blood Urea Nitrogen 14 mg/dl (7-17); Calcium 10.4 mg/dl (8.4-10.2); Carbon Dioxide 26 mmol/L (22-30); Chloride 103 mmol/L (98-107); Glucose 89 mg/dl (70-99); Lipase 415 U/L (23-300); Potassium 4.1 mmol/L (3.5-5.1); Sodium 135 mmol/L (135-145); Total Bilirubin 0.5 mg/dl (0.2-1.3); Total Protein 6.5 g/dl (6.3-8.2); eGFR > 60.00
[2024-09-14] MEDS: OMNIPAQUE 50 ML PO (13:20)
[2024-09-14 15:58] VITALS: BP 125/64
== END 2024-09-14 16:32 | disposition home or self-care (01) ==
LOC: EMR 10:34
PROVIDERS: Physician Assistant; EMERGENCY PHYSICIAN Emergency Medicine; FAMILY PHYSICIAN Internal Medicine Geriatric Medicine
DX: R11.2 Nausea with vomiting, unspecified (principal); R03.0 Elevated blood-pressure reading, without diagnosis of hypertension; F03.93 Unspecified dementia, unspecified severity, with mood disturbance; Z87.891 Personal history of nicotine dependence
CPT/HCPCS: 99284; 74176; 80053; 83690; 85025

== ENCOUNTER 2024-10-13 17:55 | Inpatient (IN) | payer MEDICARE, BC, SELFPAY ==
[2024-10-13] VITALS (9 sets, daily range): BP systolic 127–149; BP diastolic 69–95; BMI 25.4; BMI 23.0
--- NOTE | 2024-10-13 14:21 | ED.GENMED ---
History of Present Illness
<Teri Naylor PA-C - Last Filed: 10/13/24 19:05>
General
Chief Complaint: Abdominal Symptoms
Source: family and home health care physician
Exam Limitations: dementia
Time Seen by Provider: 10/13/24 14:02
History of Present Illness
History of Present Illness:
79yoF with a history of dementia and remote history of colon cancer s/p colon resection presenting with her and caregiver for evaluation of abdominal pain. Symptoms began last night. Family states she began complaining of diffuse abdominal
pain and her abdomen appeared distended. She seemed to be breathing heavily and was belching. She was also more confused than normal. Last bowel movement was yesterday. No reported vomiting. She did eat a hard-boiled egg earlier today. No
fevers.
Past History
<Teri Naylor PA-C - Last Filed: 10/13/24 19:05>
Past History
ED Past Medical History: Cancer (Colon cancer ), Psychiatric (Depression, bipolar disorder ), Other (Dementia ) and Other (Osteoarthritis )
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
Left hip revision, ) and Other (Cataracts)
Social History
Tobacco: Former smoker
Alcohol: Occasional
Personal:
Living: with family
Employment: Retired
Family History
Family History: Other (Noncontributory)
Phy Exam
<Teri Naylor PA-C - Last Filed: 10/13/24 19:05>
General Physical Exam
General Presentation: moderate distress
General Skin: warm and dry
General Habitus: elderly
General Mental: alert
General Hydration: dry mucous membranes
ENT Exam
ENT Exam: normocephalic
Cardiovascular Exam
Cardiovascular Exam: regular rate/rhythm and no murmur
Pulmonary Exam
Pulmonary Exam: lungs clear, no respiratory distress, no rales, no crackles and no rhonchi
Gastrointestinal Exam
Gastrointestinal Exam: distended, rebound, tender and other (Abdomen distended with tenderness to light percussion of abdomen. +Rebound tenderness. )
Neurological Exam
Neurological Exam: alert
Skin Exam
Skin Exam: normal color and warm/dry
Course
<Teri Naylor PA-C - Last Filed: 10/13/24 19:05>
Orders/Labs/Results
Orders:
Orders
10/13/24 14:19
Electrocardiogram (*1) Urgent
Reason for Study: Abdominal Pain
CT Abd/pelvis W Iv Cont Urgent
Comment:
Reason For Exam: Abd distention/pain, unable to tolerate PO intake
Cardiac Monitoring- Treatment ONCE
EKG- Treatment ONCE
0.9% Sodium Chloride 500 ml [Nss] 500 ml IV BOLUS
CR Chest Portable - 1 View Urgent
Comment:
Reason For Exam: SOB
Reason Study Needs to be Portable: Unable to Transport
10/13/24 14:39
Complete Blood Count/With Diff Urgent
Comprehensive Metabolic Panel Urgent
Lactate Level [Lactic Acid] Urgent
Lipase Urgent
Troponin I Urgent
10/13/24 14:41
Type+Screen Urgent
10/13/24 Dinner
NPO
Allow oral meds: No
Allow clear liquids: No
NPO with Ice Chips: No
10/13/24 15:04
NG Tube [GI tube insertion- Treatment] ONCE
10/13/24 15:10
0.9% Sodium Chloride 500 ml [Nss] 500 ml IV BOLUS
Piperacillin/Tazo 3.375 Gram [Zosyn] 3.375 gram in 50 ml IV NOW
10/13/24 15:54
SURGICAL CONSULT Urgent
Consulting Provider: Chad Murphy
Was physician already notified: Yes
10/13/24 15:55
Fentanyl Citrate/Pf [Sublimaze] 50 mcg IV NOW STA
10/13/24 15:57
Chest X-ray Portable [CR Chest Portable - 1 View] Stat
Comment:
Reason For Exam: ng tube confirmation
Reason Study Needs to be Portable: Unable to Transport
10/13/24 16:21
Blood Culture Q30M
HAILEY Source: Blood/Venous
Specimen Description:
Blood Culture Q30M
HAILEY Source: Blood/Venous
Specimen Description:
10/13/24 17:07
Admit/Transfer Patient As Directed
Co-Sign Provider:
Level of Care: Inpatient admission
Assign to:: IMU- Intermediate Care
Physician / Group: beatris reed
Diagnosis: sepsis 2/2 sbo, ron 2/2 dehydratio,nonischemic Mi,jayne lipase
Reason for Hospitalization: sepsis 2/2 sbo, ron 2/2 dehydratio,nonischemic Mi,jayne lipase
Expected length of stay greater than two midnights?: Yes
ELOS- Estimated Length of Stay in days: 5
I certify the patient meets the requirements for IP care: Yes
Code Status As Directed
Resuscitation Status: Full Code
10/13/24 17:13
PRN Pain Medication Management As Directed
May give lesser potent ordered pain med per pt: Yes
preference::
Protocol:: Medication orders for pain may be administered in a
manner that supports deferring to patient preference
when the pt is:
- Requesting an ordered lesser potent pain medication.
Least to most potent pain medications are defined
as: acetaminophen < NSAID < tramadol < opioids
(morphine, oxycodone, hydromorphone).
- Requesting a lesser dose of the same medication IF
ORDERED.
- Requesting a less intrusive route of administration
if both routes are prescribed by the provider (PO <
IV).
10/13/24 17:15
Acetaminophen 1000MG/100Ml [Ofirmev] 1,000 mg in 100 ml IV Q6HPRN
Acetaminophen IV Indication:: No UT & No Enteral Access
10/13/24 17:17
Lorazepam [Ativan] 1 mg IV Q4HPRN PRN
10/13/24 18:00
Lactated Ringers [Lr] 1,000 ml IV 100 mls/hr
10/13/24 18:53
HYDROmorphone [Dilaudid] 0.5 mg IV Q3HPRN PRN
HYDROmorphone [Dilaudid] 1 mg IV Q4HPRN PRN
Ondansetron Injectable [Zofran] 4 mg IV Q6HPRN PRN
Piperacillin/Tazo 3.375 Gram [Zosyn] 3.375 gram in 50 ml IV Q6H
10/13/24 18:53
Activity As Directed
Activity Level: With Assistance
Intake/ Output As Directed
Frequency: Per unit guidelines
Precautions As Directed
Type of Precautions: Other
Comment: fall due to dementia
Vital Signs As Directed
Frequency: Per unit guidelines
Pt Eval And Treat Routine
Activity Level: With Assistance
DX Deep Vein Thrombosis Video Routine
10/13/24 20:00
Lactate Level [Lactic Acid] Q6H
Troponin I Q6H
Heparin 5,000 units SC Q12
10/14/24 02:00
Lactate Level [Lactic Acid] Q6H
Troponin I Q6H
10/14/24 06:00
EKG [Electrocardiogram (*1)] IN AM
Reason for Study: Abdominal Pain
Complete Blood Count/With Diff IN AM
Comprehensive Metabolic Panel IN AM
10/14/24 08:00
Lactate Level [Lactic Acid] Q6H
Pantoprazole [Protonix IV] 40 mg IV DAILY
10/14/24 14:00
Lactate Level [Lactic Acid] Q6H
10/15/24 06:00
Complete Blood Count/With Diff IN AM
Comprehensive Metabolic Panel IN AM
10/16/24 06:00
Complete Blood Count/With Diff IN AM
Comprehensive Metabolic Panel IN AM
10/17/24 06:00
Complete Blood Count/With Diff IN AM
Comprehensive Metabolic Panel IN AM
Abnormal Lab Results
10/13/24
14:39
WBC 23.3 H 10^3/uL
(4.8-10.8)
RDW 14.7 H %
(11.5-14.5)
Abs Immat Gran (auto) 0.3 H 10^3/uL
(0-0.05)
Absolute Neuts (auto) 21.8 H 10^3/uL
(1.4-6.5)
Absolute Lymphs (auto) 0.4 L 10^3/uL
(1.2-3.4)
Absolute Monos (auto) 0.7 H 10^3/uL
(0.1-0.6)
Immature Gran % 1.4 H %
(0-0.5)
Neutrophils % 93.5 H %
(42.2-75.2)
Lymphocytes % 1.7 L %
(20.5-51.1)
Chloride 109 H mmol/L
(98-107)
Carbon Dioxide 17 L mmol/L
(22-30)
BUN 32 H mg/dl
(7-17)
Creatinine 1.5 H mg/dL
(0.6-1.0)
Glucose 111 H mg/dl
(70-99)
Lactic Acid 7.4 H* mmol/L
(0.7-2.0)
Calcium 10.8 H mg/dl
(8.4-10.2)
AST 38 H U/L
(14-36)
Troponin I 0.108 H* ng/ml
Lipase 3541 H* U/L
(23-300)
10/13/24 14:39
10/13/24 14:39
Vital Signs
Initial and Last Documented VS:
Initial Vital Signs
Temp Pulse Resp BP Pulse Ox
98.4 F 105 26 138/95 96
10/13/24 13:54 10/13/24 13:54 10/13/24 13:54 10/13/24 13:54 10/13/24 13:54
Last Documented Vital Signs
Temp Pulse Resp BP Pulse Ox
98.4 F 91 27 134/75 97
10/13/24 13:54 10/13/24 17:30 10/13/24 17:30 10/13/24 17:00 10/13/24 17:30
<Dario Vila, DO - Last Filed: 10/13/24 14:36>
Orders/Labs/Results
Orders:
Orders
10/13/24 14:19
Electrocardiogram (*1) Urgent
Reason for Study: Abdominal Pain
CT Abd/pelvis W Iv Cont Urgent
Comment:
Reason For Exam: Abd distention/pain, unable to tolerate PO intake
Cardiac Monitoring- Treatment ONCE
EKG- Treatment ONCE
0.9% Sodium Chloride 500 ml [Nss] 500 ml IV BOLUS
CR Chest Portable - 1 View Urgent
Comment:
Reason For Exam: SOB
Reason Study Needs to be Portable: Unable to Transport
10/13/24 14:39
Complete Blood Count/With Diff Urgent
Comprehensive Metabolic Panel Urgent
Lactate Level [Lactic Acid] Urgent
Lipase Urgent
Troponin I Urgent
10/13/24 14:41
Type+Screen Urgent
10/13/24 Dinner
NPO
Allow oral meds: No
Allow clear liquids: No
NPO with Ice Chips: No
10/13/24 15:04
NG Tube [GI tube insertion- Treatment] ONCE
10/13/24 15:10
0.9% Sodium Chloride 500 ml [Nss] 500 ml IV BOLUS
Piperacillin/Tazo 3.375 Gram [Zosyn] 3.375 gram in 50 ml IV NOW
10/13/24 15:54
SURGICAL CONSULT Urgent
Consulting Provider: Chad Murphy
Was physician already notified: Yes
10/13/24 15:55
Fentanyl Citrate/Pf [Sublimaze] 50 mcg IV NOW STA
10/13/24 15:57
Chest X-ray Portable [CR Chest Portable - 1 View] Stat
Comment:
Reason For Exam: ng tube confirmation
Reason Study Needs to be Portable: Unable to Transport
10/13/24 16:21
Blood Culture Q30M
HAILEY Source: Blood/Venous
Specimen Description:
Blood Culture Q30M
HAILEY Source: Blood/Venous
Specimen Description:
10/13/24 17:07
Admit/Transfer Patient As Directed
Co-Sign Provider:
Level of Care: Inpatient admission
Assign to:: IMU- Intermediate Care
Physician / Group: beatris reed
Diagnosis: sepsis 2/2 sbo, ron 2/2 dehydratio,nonischemic Mi,jayne lipase
Reason for Hospitalization: sepsis 2/2 sbo, ron 2/2 dehydratio,nonischemic Mi,jayne lipase
Expected length of stay greater than two midnights?: Yes
ELOS- Estimated Length of Stay in days: 5
I certify the patient meets the requirements for IP care: Yes
Code Status As Directed
Resuscitation Status: Full Code
10/13/24 17:13
PRN Pain Medication Management As Directed
May give lesser potent ordered pain med per pt: Yes
preference::
Protocol:: Medication orders for pain may be administered in a
manner that supports deferring to patient preference
when the pt is:
- Requesting an ordered lesser potent pain medication.
Least to most potent pain medications are defined
as: acetaminophen < NSAID < tramadol < opioids
(morphine, oxycodone, hydromorphone).
- Requesting a lesser dose of the same medication IF
ORDERED.
- Requesting a less intrusive route of administration
if both routes are prescribed by the provider (PO <
IV).
10/13/24 17:15
Acetaminophen 1000MG/100Ml [Ofirmev] 1,000 mg in 100 ml IV Q6HPRN
Acetaminophen IV Indication:: No UT & No Enteral Access
10/13/24 17:17
Lorazepam [Ativan] 1 mg IV Q4HPRN PRN
10/13/24 18:00
Lactated Ringers [Lr] 1,000 ml IV 100 mls/hr
10/13/24 18:53
HYDROmorphone [Dilaudid] 0.5 mg IV Q3HPRN PRN
HYDROmorphone [Dilaudid] 1 mg IV Q4HPRN PRN
Ondansetron Injectable [Zofran] 4 mg IV Q6HPRN PRN
Piperacillin/Tazo 3.375 Gram [Zosyn] 3.375 gram in 50 ml IV Q6H
10/13/24 18:53
Activity As Directed
Activity Level: With Assistance
Intake/ Output As Directed
Frequency: Per unit guidelines
Precautions As Directed
Type of Precautions: Other
Comment: fall due to dementia
Vital Signs As Directed
Frequency: Per unit guidelines
Pt Eval And Treat Routine
Activity Level: With Assistance
DX Deep Vein Thrombosis Video Routine
10/13/24 20:00
Lactate Level [Lactic Acid] Q6H
Troponin I Q6H
Heparin 5,000 units SC Q12
10/14/24 02:00
Lactate Level [Lactic Acid] Q6H
Troponin I Q6H
10/14/24 06:00
EKG [Electrocardiogram (*1)] IN AM
Reason for Study: Abdominal Pain
Complete Blood Count/With Diff IN AM
Comprehensive Metabolic Panel IN AM
10/14/24 08:00
Lactate Level [Lactic Acid] Q6H
Pantoprazole [Protonix IV] 40 mg IV DAILY
10/14/24 14:00
Lactate Level [Lactic Acid] Q6H
10/15/24 06:00
Complete Blood Count/With Diff IN AM
Comprehensive Metabolic Panel IN AM
10/16/24 06:00
Complete Blood Count/With Diff IN AM
Comprehensive Metabolic Panel IN AM
10/17/24 06:00
Complete Blood Count/With Diff IN AM
Comprehensive Metabolic Panel IN AM
Abnormal Lab Results
10/13/24
14:39
WBC 23.3 H 10^3/uL
(4.8-10.8)
RDW 14.7 H %
(11.5-14.5)
Abs Immat Gran (auto) 0.3 H 10^3/uL
(0-0.05)
Absolute Neuts (auto) 21.8 H 10^3/uL
(1.4-6.5)
Absolute Lymphs (auto) 0.4 L 10^3/uL
(1.2-3.4)
Absolute Monos (auto) 0.7 H 10^3/uL
(0.1-0.6)
Immature Gran % 1.4 H %
(0-0.5)
Neutrophils % 93.5 H %
(42.2-75.2)
Lymphocytes % 1.7 L %
(20.5-51.1)
Chloride 109 H mmol/L
(98-107)
Carbon Dioxide 17 L mmol/L
(22-30)
BUN 32 H mg/dl
(7-17)
Creatinine 1.5 H mg/dL
(0.6-1.0)
Glucose 111 H mg/dl
(70-99)
Lactic Acid 7.4 H* mmol/L
(0.7-2.0)
Calcium 10.8 H mg/dl
(8.4-10.2)
AST 38 H U/L
(14-36)
Troponin I 0.108 H* ng/ml
Lipase 3541 H* U/L
(23-300)
10/13/24 14:39
10/13/24 14:39
Vital Signs
Initial and Last Documented VS:
Initial Vital Signs
Temp Pulse Resp BP Pulse Ox
98.4 F 105 26 138/95 96
10/13/24 13:54 10/13/24 13:54 10/13/24 13:54 10/13/24 13:54 10/13/24 13:54
Last Documented Vital Signs
Temp Pulse Resp BP Pulse Ox
98.4 F 91 27 134/75 97
10/13/24 13:54 10/13/24 17:30 10/13/24 17:30 10/13/24 17:00 10/13/24 17:30
Arpanlt;Teri Naylor PA-C - Last Filed: 10/13/24 19:05>
MDM/Problems Addressed
Differential Diagnosis Includes:
79yoF here with abd pain, bloating, and belching since yesterday. Hx of dementia. HR 105 in triage. Remainder of vitals are normal. She is in moderate distress on initial exam. Abdomen is distended with rebound tenderness. Differential diagnosis
includes but is not limited to: Small bowel obstruction, volvulus, perforated viscus, ischemic colitis, constipation
Initial ED plan check abdominal labs, lactate, troponin/EKG, portable chest x-ray, and CT abdomen with IV contrast. PO contrast deferred due to acuity and the fact that patient cannot reliably tolerate PO intake at this time. IV fluid bolus.
<Teri Naylor PA-C - Last Filed: 10/13/24 19:05>
*EKG
Interpreted by ED Provider?: Yes
EKG Intrepretation Date: 10/13/24
Heart Rate: 102
Rate: tachycardiac
Rhythm: other (atrial)
[place]: normal axis
QRS Pattern: normal QRS
Ischemia: non-specific ST changes
*Critical Care Note
Total Time (30-74mins, 75-104mins- exclusive of procedures): 35
<Teri Naylor PA-C - Last Filed: 10/13/24 19:05>
Update Note
Update Note:
Portable chest x-ray reviewed and severe stomach distention noted. Patient sent immediately to CT scan without lab work. Labs returned with a white count of 23, lactate 7.4, and lipase of 3500. Creatinine 1.5, up from baseline of 0.8. Troponin
also elevated at 0.1, nonspecific ST changes noted on EKG. CT shows extensive gastric distention and findings suspicious for a small bowel obstruction. NG tube placed with return of about 750cc of brown liquid. Blood cultures and IV Zosyn
ordered. General surgery consulted and patient admitted for further evaluation and management.
ED Attending Note
<Teri Naylor PA-C - Last Filed: 10/13/24 19:05>
-
Portions of this chart may have been created with voice recognition software.� Occasional wrong word or��sound alike� substitutions may have occurred due to the inherent limitations of voice recognition software.
<Dario Vila DO - Last Filed: 10/13/24 14:36>
ED Attending Note
Patient seen and examined by attending physician: Yes
I performed the substantive portion of visit, reviewed & personally made and approve the management plan that is documented in note by myself or BONG.: Yes
ED Attending Note:
I have seen and evaluated the patient with a [id number] encounter. I have spoken to the advance practicer provider and involved in the medical history, the physical exam, medical decision making.
Evaluation and management service: agree unless noted differently below.
Results interpretation: agree unless noted differently below.
Focused HPI: 79-year-old female presenting for evaluation of distended abdomen. Her noted that she had increased respiratory rate last night. Patient does have Alzheimer's and is a poor historian
Physical exam: Uncomfortable, tachypneic, distended abdomen with guarding
Medical Decision Making: Given the concern for small bowel obstruction versus volvulus versus surgical abdomen, patient directly to CT scan after my evaluation
Discharge Plan
Departure
Patient Disposition: Admit
Date of Disposition: 10/13/24
Time of Disposition: 16:01
Presentation/result/management discussed w/ accepting MD/DO: Hospitalist
Discharge Problem:
Small bowel obstruction, Acute kidney injury, SIRS (systemic inflammatory response syndrome), Elevated troponin
Interventions
Interventions:
*Risk Screen - Suicide Last Done: 10/13/24 13:54
*General Assessment Last Done: 10/13/24 13:54
*Neglect/Abuse Screening Last Done: 10/13/24 13:54
*ED COVID-19 Vaccine History Last Done: 10/13/24 13:54
AP-Cervfg-Gnlckkmctp Assessment Last Done: 10/13/24 14:46
Discharge Date and Time
Discharge Date/Time: 10/13/24 18:45
[2024-10-13 14:51] LABS: Hematocrit 45.1 % (37.0-47.0); Hemoglobin 14.9 g/dL (12.0-16.0); Mean Corpuscular Hgb 30.6 pg (27.0-31.0); Mean Corpuscular Volume 92.6 fL (81.0-99.0); Mean Platelet Volume 9.9 fL (7.4-10.4); Platelet Count 316 10^3/uL (130-400); Red Blood Cell Count 4.87 10^6/uL (4.20-5.40); Red Cell Dist. Width 14.7 % (11.5-14.5); White Blood Cell Count 23.3 10^3/uL (4.8-10.8)
[2024-10-13 15:01] LABS: AST (SGOT) 38 U/L (14-36); Albumin 4.3 g/dl (3.5-5.0); Alkaline Phosphatase 81 U/L (38-126); Blood Urea Nitrogen 32 mg/dl (7-17); Calcium 10.8 mg/dl (8.4-10.2); Carbon Dioxide 17 mmol/L (22-30); Chloride 109 mmol/L (98-107); Glucose 111 mg/dl (70-99); Potassium 3.9 mmol/L (3.5-5.1); Sodium 143 mmol/L (135-145); Total Bilirubin 0.6 mg/dl (0.2-1.3); Total Protein 7.3 g/dl (6.3-8.2); eGFR 35.01
[2024-10-13] MEDS: NSS 500 IV (15:02)
[2024-10-13 15:08] LABS: Lactic Acid 7.4 mmol/L (0.7-2.0)
[2024-10-13 15:14] LABS: % Basophils 0.2 % (0-2); % Immature Granulocytes 1.4 % (0-0.5); % Lymphocytes 1.7 % (20.5-51.1); % Monocytes 3.2 % (1.7-9.3); % Neutrophils 93.5 % (42.2-75.2); Absolute Basophils 0.1 10^3/uL (0-0.2); Absolute Immature Granulocytes 0.3 10^3/uL (0-0.05); Absolute Lymphocytes 0.4 10^3/uL (1.2-3.4); Absolute Monocytes 0.7 10^3/uL (0.1-0.6); Absolute Neutrophils 21.8 10^3/uL (1.4-6.5); Nucleated Red Blood Cells % 0 %
[2024-10-13 15:16] LABS: Troponin I 0.108 ng/ml
[2024-10-13 15:17] LABS: ALT (SGPT) 34 U/L (0-35); Lipase 3541 U/L (23-300)
--- NOTE | 2024-10-13 15:31 | PHANOTE ---
med rec note-spouse in room with patient home care administrator, but either does not have list. daughter is on her way but it will take 45 minutes
[2024-10-13] MEDS: ZOSYN 50 IV ×2 (15:40→22:56)
--- NOTE | 2024-10-13 15:59 | EDRN ---
15F Nasogastric tube placed by this RN. 55cm @ left nare. positive gastric contents and auscultation. awaiting confirmation via portable chest xray
[2024-10-13] MEDS: SUBLIMAZE 50 MCG IV (16:02)
--- NOTE | 2024-10-13 16:18 | HPS.HSE ---
Family Physician
-
Family Physician: Giovany Briceno
Chief Complaint
-
Abdominal pain with distention
History of Present Illness
79-year-old female with history of dementia coming from home where she lives with her and caregivers due to evaluation of abdominal pain which began last night. Family states she began complaining of diffuse abdominal pain along with
belching and breathing heavily. They state her abdomen does appear distended and she is more confused than usual. They do report a bowel movement diarrhea yesterday and no vomiting. They states she typically has diarrhea like stool but eats tons
of fruit high in sugar. She was able to eat a hard-boiled egg this a.m.. She had NG tube inserted in ER with approximate 750 cc of liquid stool draining. She has a distended hard abdomen that is now nontender when I palpate however initially when
she came in the physician sales office assistant states she was screaming when her abdomen was palpated. She is nontoxic appearing pleasantly demented. She is cooperative with exam. Family is at bedside patient's Amanuel, daughter Uma and amber who are
answering review of systems. They deny fever, chills, vomiting, diaphoresis, headache, rash, cough, shortness of breath. 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
bipolar disorder, dementia-advanced, history of elevated LFTs osteoarthritis, former smoker, alopecia areata, fibrocystic breast disease bilateral mastectomy with reconstructive surgery and hysterectomy, bilateral total hip replacements, left knee
replacement, left hip revision, cataract extraction.
Medical History
Past Medical History
Past Medical History: Reports Other
Additional Past Medical History:
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
Depression
bipolar disorder
dementia-advanced
osteoarthritis
former smoker
Past Surgical History: Reports Other
Additional Past Surgical History:
bilateral mastectomy with reconstructive surgery and hysterectomy
bilateral total hip replacements
left knee replacement
left hip revision
cataract extraction
Social History
Tobacco: Former Smoker
Alcohol: None
Drug: None
Personal:
Living: With Family ( Amanuel and aids)
Employment: Retired
Family History
Family History: Other (Mother unknown, father of Alzheimer's complications, patient is 1 brother 1 sister unsure of medical problems)
Allergies / Home Medications
Allergies reflects when Allergies were last updated in [facility].
Home Medications with original date entered in [facility]
Allergy/Medication List:
Allergies
Allergy/AdvReac Type Severity Reaction Status Date / Time
grass pollen Allergy ITCHY Verified 10/13/24 13:55
EYES/SNEEZING
sulfamethoxazole Allergy Severe Verified 10/13/24 13:55
[From Bactrim] stomach
pain-Triggered
pancreatitis
trimethoprim [From Bactrim] Allergy Severe Verified 10/13/24 13:55
stomach
pain-Triggered
pancreatitis
Home Medications
mirtazapine 30 mg tablet 30 mg PO HS Mental Health/Anxiety 06/27/15
donepezil 10 mg tablet 10 mg PO HS Neurological Condition 01/12/20
escitalopram oxalate 20 mg tablet 20 mg PO DAILY Mental Health/Anxiety 01/12/20
memantine 10 mg tablet 10 mg PO BID Neurological Condition 01/12/20
carboxymethylcellulose sodium 0.5 % eye drops (Refresh Tears) 1 drp BOTH EYES DAILY 10/13/24
omega 8-ucx-ngx-fish oil 1,000 mg (120 mg-180 mg) capsule (Fish Oil) 1 cap PO HS 10/13/24
Review of Systems
-
History Source: Family (Daughter Uma, Amanuel and aide at bedside)
A 12 point ROS was completed and negative except as noted: Yes
Constitutional: Denies Fever or Chills
EENT: Denies Sore Throat or Runny Nose
Respiratory: Denies Cough or Trouble Breathing
Cardiac: Denies Chest Pain, Diaphoresis or Syncope
Abdomen/GI: Reports Abdominal Pain, Nausea and Diarrhea; Denies Vomiting
: Denies Flank Pain
Musculoskeletal: Denies Joint Swelling or Edema
Skin: Denies Rash
Neurological: Denies Headache or Weakness
Endocrine: Reports No Symptoms
Hematologic/Lymphatic: Reports No Symptoms
Psych: Reports Calm
Physical Exam
Vital Signs
Vital Signs
Temp Pulse Resp BP Pulse Ox
98.4 F 110 19 143/71 96
10/13/24 13:54 10/13/24 16:00 10/13/24 16:00 10/13/24 15:00 10/13/24 16:00
Physical Exam
General: Pain; No Fever or Chills
HEENT: NormoCephalic, Anicteric, PERRLA, Waterflow Conjunctivae, No Ptosis and Other (NG tube present draining liquid brown stool)
Respiratory: Clear; No Wheezes, Rales or Rhonchi
Cardiac: S1/S2 and Regular Rhythm; No Murmur, Rub, Gallop or Peripheral Edema
Breast: Other (Bilateral breast implants present)
GI: Distended (Distended generalized abdomen currently nontender on palpation post NG tube drainage 750 cc liquid brown stool was prior tender with screaming by PA exam)
Rectal: Deferred by Provider
Genito-urinary: Deferred by me
Musculoskeletal: No Clubbing, No Cyanosis and No Edema
Skin: Warm and Dry; No Rash or Jaundice
Neuro: Awake, Alert, Oriented (To name can answer yes or no to review of systems), No Motor Deficits and No Sensory Deficits; No Slurred Speech, Facial Droop, Tremors or Sedated
Psych: Calm
Laboratory Results
-
10/13/24 14:39
10/13/24 14:39
Laboratory Results
Lactic Acid 7.4 mmol/L (0.7-2.0) H* 10/13/24 14:39
Total Bilirubin 0.6 mg/dl (0.2-1.3) 10/13/24 14:39
AST 38 U/L (14-36) H 10/13/24 14:39
ALT 34 U/L (0-35) 10/13/24 14:39
Alkaline Phosphatase 81 U/L (38-126) 10/13/24 14:39
Troponin I 0.108 ng/ml H* 10/13/24 14:39
Lipase 3541 U/L (23-300) H* 10/13/24 14:39
Impression/Plan
-
Impression/plan:
Admit to IMU
#Sepsis secondary to SBO concern for possible ischemic bowel
WBC 23 with left shift, 98.4, HR 110, 143/71
Lactic acid 7.4-will monitor
-Continue NG tube to intermittent suction
-Check blood cultures x 2
-IV Zosyn given in ER
-IV NSS 1 L given in ER
-Will give IV LR 100 cc/h
-IV Dilaudid as needed pain, IV Zofran as needed nausea vomiting
-Consult General surgery-seen at bedside by Dr. Murphy
-Plan for NG tube drainage no surgery at current time
-hydrate with IV fluids
-Follow CBC, CMP
CT abdomen pelvis with IV contrast:extensive gastric distention with numerous loops of small bowel extending into the pelvis.
There is no discrete transition point identified, however evaluation of the pelvis is limited secondary to
streak artifact and findings are favored to represent a small bowel obstruction.
There is no evidence of pneumoperitoneum.
#Elevated lipase due to bowel obst/ ARLIN due to volume depletion
Lipase 3541 prior lipase elevation 415 on 09/14/2024
--hydrate with IV fluids
#ARLIN due to dehydration
Creat 1.5 baseline 0.8
-IV NSS 1 L given in ER
-Continue IV LR 100 cc/h
#Nonischemic myocardial injury
No reported chest pain or palpitations
Troponin 0.108 will trend
#Hx Carcinoid tumor status post small bowel resection age 51
#Hx dementia- advanced
-Fall precautions
# Hx Depression
# Bipolar disorder
Hold Namenda 10 mg twice daily, mirtazapine 30 mg at bedtime, donepezil 10 mg at bedtime
-IV Ativan 1 mg every 4 hours hold for sedation or SBP<110
#Osteoarthritis
#Former smoker
DVT prophylaxis
Patient is full code
however if patient goes into cardiac arrest and is in coma she wants this to persist for 14 days only then would want DNR but leaves decision of how many days more or last up to her Amanuel, daughter Uma and son Marcos per her living will
--- NOTE | 2024-10-13 16:19 | CON.GS ---
Medical History
-
Chief Complaint: Abdominal distension
History of Present Illness:
Patient is a 79 yo F with a PMH of severe dementia, bipolar disorder?, reported history of a small bowel resection due to a carcinoid as well as potential colon cancer?, bilateral mastectomy, s/p hysterectomy, and s/p multiple orthopedic procedures.
History is severely limited due to the patient's cognitive status as well as dementia of her . History was gained from her coordinator of genetic services and chart review. Reported to have increased abdominal distention by her prompting further
evaluation. Reports episodes of spitting up sputum, but no large-volume emesis. Incontinent of loose stool yesterday. No reports of flatus. No fevers or chills. Unknown if she has had prior issues with bowel obstructions. No clear history on
her treatment or follow-up as a relates to her prior cancers.
Past Medical History
Past Medical History: Cancer (Carcinoid) and Psychiatric (Severe dementia, bipolar disorder)
Past Surgical History: Bowel Resection (Colon and small bowel?), Gynecological (Hysterectomy), Orthopedic (bilateral total hip replacements, LEFT knee replacement, LEFT hip revision) and Other (Bilateral mastectomy)
Social History
Tobacco: Non-Smoker
Alcohol: None
Drug: None
Family History
Family History: Reviewed & Noncontributory
Allergies / Home Medications
Allergy/AdvReac Type Severity Reaction Status Date / Time
grass pollen Allergy ITCHY Verified 10/13/24 13:55
EYES/SNEEZING
sulfamethoxazole Allergy Severe Verified 10/13/24 13:55
[From Bactrim] stomach
pain-Triggered
pancreatitis
trimethoprim [From Bactrim] Allergy Severe Verified 10/13/24 13:55
stomach
pain-Triggered
pancreatitis
�Medication �Instructions �Recorded �Confirmed �Type
mtipmrbuidq-lydhfuysb-ryd C-Mn 500 1 cap PO DAILY Supplement 10/16/08 01/12/20 History
mg-400 mg capsule
vitamin B complex-folic acid 0.4 0.4 mg PO DAILY Supplement 01/06/10 01/12/20 History
mg tablet (Super B Maxi Complex)
ferrous sulfate 325 mg (65 mg 325 mg PO DAILY Supplement 06/27/15 01/12/20 History
iron) tablet (FeroSul)
mirtazapine 30 mg tablet 30 mg PO HS Mental Health/Anxiety 06/27/15 01/12/20 History
ascorbic acid (vitamin C) 500 mg 500 mg PO DAILY Supplement 01/12/20 01/12/20 History
tablet (Vitamin C)
calcium 500 mg (as 1 tab PO BID Supplement 01/12/20 01/12/20 History
carbonate)-vitamin D3 5 mcg (200
unit) tablet (Oyster Shell
Calcium-Vitamin D3)
cholecalciferol (vitamin D3) 25 1,000 units PO DAILY Supplement 01/12/20 01/12/20 History
mcg (1,000 unit) tablet
donepezil 10 mg tablet 10 mg PO HS Neurological Condition 01/12/20 01/12/20 History
escitalopram oxalate 20 mg tablet 20 mg PO DAILY Mental 01/12/20 01/12/20 History
Health/Anxiety
esomeprazole magnesium 20 mg 20 mg PO DAILY Gastrointestinal 01/12/20 01/12/20 History
capsule,delayed release (Nexium) issue
fish oil-dha-epa 1,200 mg-144 2 ea PO BID Supplement 01/12/20 01/12/20 History
mg-216 mg capsule
memantine 10 mg tablet 10 mg PO BID Neurological Condition 01/12/20 01/12/20 History
multivitamin with folic acid 400 1 tab PO DAILY Supplement 01/12/20 01/12/20 History
mcg tablet (Tab-A-Marina)
psyllium husk 0.4 gram capsule 0.4 gm PO DAILY Constipation 01/12/20 01/12/20 History
(Metamucil)
Review of Systems
-
A 10 point review of systems was completed, and was negative except as per HPI.
Physical Exam
Vital Signs
Temp Pulse Resp BP Pulse Ox
98.4 F 110 19 143/71 96
10/13/24 13:54 10/13/24 16:00 10/13/24 16:00 10/13/24 15:00 10/13/24 16:00
Lab Results
10/13/24 14:39
10/13/24 14:39
WBC 23.3 10^3/uL (4.8-10.8) H 10/13/24 14:39
Hgb 14.9 g/dL (12.0-16.0) 10/13/24 14:39
Hct 45.1 % (37.0-47.0) 10/13/24 14:39
Plt Count 316 10^3/uL (130-400) 10/13/24 14:39
Abs Immat Gran (auto) 0.3 10^3/uL (0-0.05) H 10/13/24 14:39
Neutrophils % 93.5 % (42.2-75.2) H 10/13/24 14:39
Physical Exam
General: Well Developed, Well Nourished and No Apparent Distress
Respiratory: Non Labored Respirations
Cardiac: Regular Rhythm
GI: Soft, Non Tender, Distended (Tympanitic), Incisions (Jeanie-umbilical well healed) and Other (Non-peritoneal)
Musculoskeletal: No Edema
Skin: Warm and Dry
Neuro: Nonfocal/Grossly Intact
Data Reviewed
-
Radiology: Image Personally Visualized and interpreted and Report Reviewed by me
CT Scan: Image Personally Visualized and interpreted and Report Reviewed by me
Labs: Labs Reviewed by me
Old Records: Reviewed
Assessment / Plan
-
Patient is an 79 yo F p/w abdominal distention related to a likely partial small bowel obstruction probably related to adhesions, though possible due to dysmotility, malignancy, or medication induced. Differential remains broad as history is
limited, though given her degree of distension with limited nausea and emesis combined with continued passage of BMs, this is likely a slowly evolving process over the course of weeks.
CT scan imaging was reviewed. No evidence of pneumatosis or free air. Currently clinically stable with a normal heart rate, blood pressures and afebrile. Significant dehydration with an elevated WBC and lactate. Elevated lipase level more likely
related to degree of bowel distention/obstruction and/or compression from the stomach rather than primary pancreatitis. Troponin elevation due to stress and/or new acute ARLIN. Recommend medical management and likely further workup with a contrasted
imaging study. No plans for surgery at this time. Continue with NGT decompression. Aggressive IV fluid resuscitation. Continue to trend labs including lactate and troponin. All questions answered. Daughter updated.
-- No plans for surgery at this time
-- NPO, NGT decompression
-- Aggressive IVF, trend lactate
-- Trend labs
-- Will likely need repeat imaging with PO contrast pending progression to better elucidate the cause of her obstruction
--- NOTE | 2024-10-13 16:53 | W.PN.UPDATE ---
Update Note
Progress Note Update
I could not get any information from the patient with dementia
Information gathered by chart review and speaking with the ER staff.
This note serves as an addendum to the H&P by occupational nurse BONG Winifred LIMA
HPI
79F with Dementia, Depression from home with seen at ER
- acute abd pain and distention since yesterday.
- severe distention on arrival with rebound.
- CT shows extensive gastric distention and evidence of obstruction.
- abn labs: Lactate 7.4, WBC 23. Creatinine 1.5 (baseline of 0.8).
PHX; se above
Selected Entries
10/13/24
13:54 10/13/24
14:41
Temp 98.4 F
Pulse 105 91
Resp Rate 26 29
Blood pressure 138/95
SaO2 96
Oxygen Mode of Delivery Room air
PE
Gen: pleasantly confided , not toxic looking
HEENT: anicteric
Neck: supple
Lungs: CTA
Cor:ST
Abdomen: distended much improved, no RT, Not guarded
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
MS: no edema
Psych: confused
Laboratory Tests
09/14/24 10/13/24
11:30 14:39
WBC 23.3 H
Hgb 14.9
Plt Count 316
Chloride 109 H
Carbon Dioxide 26 17 L
BUN 32 H
Creatinine 0.8 1.5 H
eGFR > 60.00 35.01
Glucose 111 H
Lactic Acid 7.4 H*
AST 38 H
ALT 34
Alkaline Phosphatase 81
Troponin I 0.108 H*
Lipase 3541 H*
BCx sent
CXR : No acute cardiopulmonary abnormality.
EKG
ATRIAL FIBRILLATION WITH RAPID VENTRICULAR RESPONSE
NONSPECIFIC ST ABNORMALITY
ABNORMAL ECG
WHEN COMPARED WITH ECG OF 12-AUG-2024 18:09,
ATRIAL FIBRILLATION HAS REPLACED SINUS RHYTHM
NONSPECIFIC T WAVE ABNORMALITY NOW EVIDENT IN INFERIOR LEADS
NONSPECIFIC T WAVE ABNORMALITY NO LONGER EVIDENT IN LATERAL LEADS
CT Abd/pelvis W Iv Cont
- extensive gastric distention with numerous loops of small bowel extending into the pelvis.
- no discrete transition point identified, however evaluation of the pelvis is limited secondary to streak artifact and findings are favored to represent a small bowel obstruction.
- There is no evidence of pneumoperitoneum.
- Bilateral nonobstructing renal calculi measuring up to 6 mm on the left and 3 mm on the right, unchanged.
ASSESSMENT & PLAN
Pending Rx reconciliation
Severe sepsis ( HR 105, RR 26, LA 7s) s
Multiple precipitants for sepsis: Ileus and secondary chemical pancreatitis, SBO, cannot rule out acute ischemic BW
Acute abd pain and distention since yesterday.
Severe distention on arrival with rebound.
Last BM was loose BMs yesterday
CT shows extensive gastric distention and evidence of obstruction.
- NG tube drained 750 cc of feculanet asairate
- NPO and IVF
- Switch LR IVF in place of NS
- Empiric Zosyn
- trend Lipase and CBC
- GS consulted
ARLIN
Hi AG MA (17)
Lactate acidosis concerning with ischemic BW
- Switch LR IVF in place of NS
- trend daily BMP
HX Dementia
- hold PEARL DIVER memantine and donepezil
Depression HX
- hold Mirtazapine, escitalopram
Recent HX of Rt patella Fx
HX Lt partial TKA
- PT
DVT Px: SQH
Full code per daughter and
IMU
[2024-10-13] MEDS: LR 1000 IV (17:18)
[2024-10-13] MEDS: ATIVAN 1 MG IV (18:37)
[2024-10-13 20:40] LABS: Troponin I 0.103 ng/ml
[2024-10-13] MEDS: HEPARIN 5000 UNITS SC (22:56)
[2024-10-14] VITALS (14 sets, daily range): BP systolic 123–179; BP diastolic 52–135; PULSE 90–95; O2SAT 93–95; BMI 23.0
[2024-10-14] MEDS: LR 1000 IV ×2 (03:21→13:38)
[2024-10-14] MEDS: ZOSYN 50 IV ×4 (03:21→19:44)
[2024-10-14 04:14] LABS: % Basophils 0.3 % (0-2); % Eosinophils 0.1 % (0-6); % Immature Granulocytes 0.5 % (0-0.5); % Lymphocytes 5.7 % (20.5-51.1); % Monocytes 7.7 % (1.7-9.3); % Neutrophils 85.7 % (42.2-75.2); Absolute Basophils 0.1 10^3/uL (0-0.2); Absolute Immature Granulocytes 0.1 10^3/uL (0-0.05); Absolute Lymphocytes 0.9 10^3/uL (1.2-3.4); Absolute Monocytes 1.2 10^3/uL (0.1-0.6); Absolute Neutrophils 13.1 10^3/uL (1.4-6.5); Hematocrit 40.2 % (37.0-47.0); Hemoglobin 13.9 g/dL (12.0-16.0); Mean Corp Hgb Conc. 34.6 g/dL (33.0-37.0); Mean Corpuscular Hgb 30.5 pg (27.0-31.0); Mean Corpuscular Volume 88.2 fL (81.0-99.0); Mean Platelet Volume 9.9 fL (7.4-10.4); Nucleated Red Blood Cells % 0 %; Platelet Count 253 10^3/uL (130-400); Red Blood Cell Count 4.56 10^6/uL (4.20-5.40); Red Cell Dist. Width 14.6 % (11.5-14.5); White Blood Cell Count 15.3 10^3/uL (4.8-10.8)
[2024-10-14 04:28] LABS: Lactic Acid 1.6 mmol/L (0.7-2.0)
[2024-10-14 04:40] LABS: Troponin I 0.064 ng/ml
[2024-10-14 04:47] LABS: ALT (SGPT) 25 U/L (0-35); AST (SGOT) 41 U/L (14-36); Albumin 3.5 g/dl (3.5-5.0); Alkaline Phosphatase 98 U/L (38-126); Blood Urea Nitrogen 28 mg/dl (7-17); Calcium 9.6 mg/dl (8.4-10.2); Carbon Dioxide 24 mmol/L (22-30); Chloride 108 mmol/L (98-107); Estimated Creatinine Clearance 50 ml/min; Glucose 117 mg/dl (70-99); Potassium 3.8 mmol/L (3.5-5.1); Sodium 139 mmol/L (135-145); Total Bilirubin 0.6 mg/dl (0.2-1.3); Total Protein 5.8 g/dl (6.3-8.2); eGFR > 60.00
[2024-10-14 05:30] LABS: Hepatitis C Antibody Negative (Negative)
--- NOTE | 2024-10-14 05:44 | PTCARENOTE ---
Received pt from ED @ 18:57. Pt aaox1, pleasantly confused, but pulling at tubes and wires, restless. Restraints applied per orders for attempts to remove tube. NSR on monitor, +pedals, lungs diminished on RA, SaO2 95%. NGT in L nare @ 58cm. Abdomen
distended, firm. Incont bowel/bladder. Small stool upon arrival. Purwick in place. MASD noted in groin and perineal area. Desenex ordered. IV in L FA with LR@100ml/hr, zosyn Q6H. Orders received to draw labs from feet (B/L upper extremity
restrictions d/t B/L mastectomies).
--- NOTE | 2024-10-14 07:28 | W.PN.HOSP.TC ---
Addendum entered and electronically signed by Angélica Feng MD 10/14/24 14:00:
I saw and evaluated the patient independently. I reviewed the resident�s note and agree with findings and plan as documented by Dr. Lozada.
GENERAL: chronically ill appearing female in no apparent distress
HEENT: NC/AT--NGT in place
HEART: regular rate and rhythm, +S1, +S2
LUNGS : clear to auscultation bilaterally
ABDOM: soft, nontender, distended, decreased bowel sounds
EXT: no cyanosis, clubbing, or edema
NEUROLOGIC: apparent dementia
Small bowel obstruction with concern for possible ischemic bowel on admission--SBO likely due to adhesions given history of resection, but broad differential--Abd CT on admission consistent with SBO--blood cultures pending--General Surgery
following, appreciate recs--NPO/IVF/NGT--PRN IV Dilaudid and Zofran
SIRS present and possible sepsis on admission-- likely secondary to above with ischemic bowel as potential infectious source-- cont Zosyn started 10/13--WBC trended down, remains afebrile--Continue antibiotics for today, reassess discontinuation when
appropriate
Metabolic acidosis with elevated anion gap (17) likely secondary to lactic acidosis--likely hypoperfusion secondary to SBO/?bowel ischemia--lactate downtrending
Elevated lipase on admission (3541)--likely compression of pancreas from gastric/bowel distention, ARLIN may be contributing--presentation and CT not consistent with pancreatitis
ARLIN (Cr baseline ~0.8)--Cr 1.5 on admission, suspect due to hypovolemia--back to baseline--continue IV hydration while n.p.o. and monitor
Elevated troponin (0.108 on admission) with no chest pain--most likely nonischemic myocardial injury--troponin downtrending x 2
H/o advanced dementia, mood disorder--hold home meds given n.p.o., plan to resume when tolerating p.o.--PRN IV Ativan ordered, fall precautions, nonviolent restraints due to attempts to remove NGT
Other:
Osteoarthritis s/p multiple orthopedic surgeries--reassess for pain control as needed--prn IV acetaminophen for mild pain while npo
S/p bilateral mastectomy with reconstruction surgery--unclear if this included lymphadenectomy, bilateral upper extremities nonedematous on exam--caution with BUE, BP cuff on LE
Former smoker--no intervention needed
Code status-- Full Code (per advanced directive, full code with all life sustaining measures at least initially for 14 days; surrogate may adjust duration if patient is permanently unconscious with no hope of recovery)
DVT proph-- Heparin SC every 12h
Original Note:
Today's Communication/Plan
-
Continue n.p.o., NGT decompression, IV fluids, antibiotics
Assessment / Plan
Assessment / Plan
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 Family also reported breathing heavily, abdominal
distention, and more confused than baseline. In the ED, she was found to have a small bowel obstruction and NGT was placed, which drained ~750 mL liquid stool initially. CT scan showed distention of stomach and numerous loops of small bowel,
favored to represent SBO; no evidence of pneumoperitoneum. Labs were notable for elevated WBC, lactate, lipase, troponin. She was started on IV Zosyn and admitted to IMU for sepsis secondary to SBO and concern for possible ischemic bowel. General
surgery was consulted��rec medical management provided and NGT decompression, no plans for surgery at this time.
Small bowel obstruction with concern for possible ischemic bowel on admission--SBO likely 2/2 adhesions given history of resection, but broad differential--Abd CT on admission consistent with SBO--blood cultures x 2 obtained, still pending--General
Surgery following, appreciate recs--continue n.p.o. with NGT to low intermittent suction for decompression--continue IV hydration, and supportive meds--PRN IV Dilaudid and Zofran already ordered--follow CBC, CMP--May need eventual ST eval
Sepsis present on admission (met SIRS criteria with leukocytosis, tachycardia), likely secondary to above--plan as above. IV Zosyn started 10/13--WBC trended down, remains afebrile--Continue antibiotics for today, reassess discontinuation when
appropriate
Metabolic acidosis with elevated anion gap (17) secondary to lactic acidosis--likely hypoperfusion secondary to SBO/?bowel ischemia--lactate downtrending--repeat AM, plan as above
Elevated lipase on admission (3541)--likely compression of pancreas from gastric/bowel distention, ARLIN may be contributing--presentation and CT not consistent with pancreatitis-- repeat in AM, plan as above
ARLIN (Cr baseline ~0.8)--Cr 1.5 on admission, suspect due to hypovolemia--back to baseline--continue IV hydration while n.p.o. and monitor
Elevated troponin (0.108 on admission) with no chest pain--most likely nonischemic myocardial injury--troponin downtrending x 2, repeat in AM
H/o advanced dementia, mood disorder--hold home meds given n.p.o., plan to resume when tolerating p.o.--PRN IV Ativan ordered, fall precautions, nonviolent restraints due to attempts to remove NGT
Other:
Osteoarthritis s/p multiple orthopedic surgeries--reassess for pain control as needed--prn IV acetaminophen for mild pain while npo
S/p bilateral mastectomy with reconstruction surgery--unclear if this included lymphadenectomy, bilateral upper extremities nonedematous on exam--caution with BUE, BP cuff on LE
Former smoker--no intervention needed
Code status: Full (per advanced directive, full code with all life sustaining measures at least initially for 14 days; surrogate may adjust duration if patient is permanently unconscious with no hope of recovery)
VTE ppx: Heparin SC every 12h
Diet: NPO
Dispo planning: Pending clinical course and PT eval when able
Update: in afternoon, returned to bedside to provide updates to Amanuel and daughter Uma. Amanuel told me that he and Cindy live independently in a [place] community, and they have a caregiver present for 8 hours per day Thursday-Thursday. Their family
is already looking into arrangements for moving somewhere with more supervision. Medical updates provided, they are understanding and agreeable with plan and have no further questions at this time.
10/13/2024 abdomen/pelvis CT
IMPRESSION:
There is extensive gastric distention with numerous loops of small bowel extending into the pelvis. There is no discrete transition point identified, however evaluation of the pelvis is limited secondary to streak artifact and findings are favored
to represent a small bowel obstruction. There is no evidence of pneumoperitoneum.
Bilateral nonobstructing renal calculi measuring up to 6 mm on the left and 3 mm on the right, unchanged.
10/13/2024 chest x-ray
FINDINGS:
Lines and tubes: None.
Lungs: The lungs are clear. No pleural effusion or pneumothorax.
Heart: Cardiac and mediastinal contours are unremarkable. Minimal atherosclerotic calcifications of the aortic arch.
Osseous structures: Visualized osseous structures are within normal limits. Bilateral breast prostheses. Surgical clips project over the right upper quadrant.
Gaseous distention of the stomach.
IMPRESSION:
No acute cardiopulmonary abnormality.
10/13/2024 chest x-ray
IMPRESSION:
Nasogastric tube with tip in proximal stomach.
Anticipated Discharge: > 48 hours
Subjective/Interval History
-
Date of Service: October 14, 2024
No acute events overnight. She was sleeping comfortably on my arrival, woken with verbal/physical stimuli. She is confused, and it seems to me that she will not answer questions that she does not know making it difficult to evaluate her
subjective. She does not offer any complaint this morning. When I asked if she was in any pain, she nods; she will not say where this pain is.
Objective Data
-
Labs:
Laboratory Results
10/14/24
04:03
WBC 15.3 H
Hgb 13.9
Hct 40.2
Plt Count 253
Sodium 139
Potassium 3.8
Chloride 108 H
Carbon Dioxide 24
BUN 28 H
Creatinine 0.9
Glucose 117 H
Calcium 9.6
Total Bilirubin 0.6
AST 41 H
ALT 25
Alkaline Phosphatase 98
10/13/2024 blood cultures x 2 pending
Vital Signs:
Vital Signs
Temp Pulse Resp BP Pulse Ox
98.4 F 89 18 148/74 97
10/14/24 03:45 10/14/24 00:30 10/14/24 00:30 10/14/24 00:00 10/14/24 00:30
I&O
10/13/24 10/14/24 10/15/24
06:59 06:59 06:59
Output Total 800 / 800 450 / 450
Balance -800 / -800 -450 / -450
Review of Systems
-
Unable to obtain full review of systems at this time due to: Dementia
Physical Exam
-
General: No Apparent Distress; Negative Conversant
HEENT: Normocephalic, Atraumatic, PERRLA and Other (NGT to wall suction)
Respiratory: Clear to Auscultation (Anterior lung aden) and Non Labored Respirations
Cardiac: Regular Rhythm and S1/S2
GI: Soft, Nondistended, Tender and Other (No rebound/rigidity/involuntary guarding)
Musculoskeletal: No Clubbing, No Cyanosis, No Edema and Other (Bilateral mitts on hands, BP cuff on left calf)
Skin: Warm and Dry
Neuro: Awake; Negative Oriented (Oriented to self (name/, will not state age); will not answer where we are)
Psych: Apparent Dementia; Negative Intact Judgement/Insight
Data Reviewed
-
Diagnostic Radiology: Image personally visualized and interpreted and Report Reviewed by me
CT Scan: Image personally visualized and interpreted and Report Reviewed by me
Labs: Labs Reviewed by me
[2024-10-14] MEDS: NSS (PRESERVATIVE FREE) 10 ML IV (08:00)
[2024-10-14] MEDS: PROTONIX IV 40 MG IV (08:00)
[2024-10-14] MEDS: HEPARIN 5000 UNITS SC ×2 (08:00→19:44)
[2024-10-14] MEDS: DESENEX/MITRAZOL/ZEASORB 1 APPLIC TOPICAL ×2 (08:00→19:43)
--- NOTE | 2024-10-14 09:01 | W.PN.GS2 ---
Today's Communication / Plan
-
continue NGT decompression
Assessment / Plan
-
79 yo female p/w abdominal distention related to a likely partial small bowel obstruction probably related to adhesions, though possible due to dysmotility, malignancy, or medication induced.
Afebrile with tachycardia, BP stable
WBC trending down
ARLIN improving with IVF
Lipase elevated, ?etiology
Plan:
continue npo/NGT decompression
may need po contrast study pending progression
c/w IVF
analgesics/antiemetics prn
VTE ppx as per primary team
Subjective Data
-
Date of Service: October 14, 2024
Patient seen and examined at bedside with Dr. Hein. Anupama n/v. Notes some abdominal pain. Overall a very poor historian, wearing mitt restraints.
Objective Data
-
Intake and Output
10/13/24 10/14/24 10/15/24
06:59 06:59 06:59
Output Total 800 / 800 450 / 450
Balance -800 / -800 -450 / -450
Output:
Gastrointestinal tube output ( 800 / 800
Total)
Urine, Voided 450 / 450
Vital Signs
Temp Pulse Resp BP Pulse Ox
98.4 F 99 18 153/65 94
10/14/24 03:45 10/14/24 07:26 10/14/24 07:26 10/14/24 07:26 10/14/24 07:26
Lab Results
10/14/24 04:03
10/14/24 04:03
Calcium 9.6 mg/dl (8.4-10.2) 10/14/24 04:03
Total Bilirubin 0.6 mg/dl (0.2-1.3) 10/14/24 04:03
AST 41 U/L (14-36) H 10/14/24 04:03
ALT 25 U/L (0-35) 10/14/24 04:03
Alkaline Phosphatase 98 U/L (38-126) 10/14/24 04:03
Total Protein 5.8 g/dl (6.3-8.2) L D 10/14/24 04:03
Albumin 3.5 g/dl (3.5-5.0) 10/14/24 04:03
Physical Exam
-
NAD, resting comfortably
ABD soft, distended, generalized tenderness
NGT with low output
[2024-10-14] MEDS: ATIVAN 1 MG IV ×2 (13:36→18:41)
[2024-10-14] MEDS: NSS (PRESERVATIVE FREE) 0.5 ML IV ×2 (13:37→18:41)
--- NOTE | 2024-10-14 15:52 | PTCARENOTE ---
Patient AOx1 disoriented to time and place. Patient is confused, agitated, anxious, and forgetful. Bed alarm on and audible. PRN ativan given per order. Patient on RA. NSR-sinus tachy on monitor. NG tube in L nare on low intermittent suction. No
output during shift from NG tube. Abdomen is round, distended, and tender to palpation. Strict NPO. Orders for OK to use L FA IV in place due to patient have B/L upper extremity limb restriction. IVF running per order. B/L wrist and mitt's in place
per order. Hourly rounds completed with patient. Safe environment maintained. Bed of wheels locked.
--- NOTE | 2024-10-14 16:55 | CM ---
Patient with Hx advanced dementia, mood disorder with Dx SBO. Room air. Receiving IVF, IV Abx. Per Nursing; confused, drowsy, soft restraints. PT/OT recommend skilled rehab.
Met with patient (JOSE White), daughter Barb and Amanuel;
the patient resided with her in a 2 story unit in an [place] Community, with first floor setup, and 3-4 steps at entrance.
The patient was very confused and only recognizes her but not the daughter.
She is assisted with ADLs by her caregiver who is there 8 hrs/day 6 days/week.
The patient was ambulatory sometimes using her RW.
DME - RW, SPC, raised toilet seat
Patient is current with [facility] - & Dtr can't remember agency
Prior [facility]
Prior [facility]
PCP - Giovany Briceno
Pharmacy - [facility]
Daughter agrees to short term rehab if needed. She is looking at [facility] SNFs that have multiple levels of care for both her parents, hoping her mother can get into a memory care unit and can be in assisted living in the same facility, for
LTC. Discussed local [facility] SNFs and provided ratings and encouraged daughter to tour some facilities and apply. Daughter shares that her father also has some memory problems and is difficult to manage at home. She is aware that her mother would
need 24/7 supervision if discharged to home.
Spoke with [facility]; patient is current with [facility] and unsure if she has Palliative Care.
Plan follow up with daughter for SNF preferences.
--- NOTE | 2024-10-14 18:28 | PTCARENOTE ---
Dr. Lozada made aware that patient is sitting upper body up and leaning towards hands to try to pull out NG tube. B/L mitts and B/L upper soft limb restraints in place. Patient also attempting to get out of bed. Bed alarm on and audible. 1:1
ordered and at bedside. Care ongoing.
--- NOTE | 2024-10-14 20:36 | PTCARENOTE ---
Pt frequently alarming afib on tele monitor, however, P waves present. EKG done to confirm, pt NSR/ST with sinus arrhythmia. MICRO LAB ANALYST notified via tiger text. EKG in chart.
[2024-10-15] VITALS (8 sets, daily range): BP systolic 101–147; BP diastolic 42–89
[2024-10-15] MEDS: ZOSYN 50 IV (01:44)
[2024-10-15] MEDS: LR 1000 IV (01:44)
[2024-10-15 04:47] LABS: % Basophils 0.3 % (0-2); % Eosinophils 0.9 % (0-6); % Immature Granulocytes 0.5 % (0-0.5); % Lymphocytes 10.7 % (20.5-51.1); % Neutrophils 77.6 % (42.2-75.2); Absolute Eosinophils 0.1 10^3/uL (0-0.7); Absolute Immature Granulocytes 0.1 10^3/uL (0-0.05); Absolute Lymphocytes 1.1 10^3/uL (1.2-3.4); Absolute Neutrophils 8.1 10^3/uL (1.4-6.5); Hematocrit 34.7 % (37.0-47.0); Hemoglobin 11.9 g/dL (12.0-16.0); Mean Corp Hgb Conc. 34.3 g/dL (33.0-37.0); Mean Corpuscular Hgb 30.4 pg (27.0-31.0); Mean Corpuscular Volume 88.5 fL (81.0-99.0); Mean Platelet Volume 10.7 fL (7.4-10.4); Nucleated Red Blood Cells % 0 %; Platelet Count 219 10^3/uL (130-400); Red Blood Cell Count 3.92 10^6/uL (4.20-5.40); Red Cell Dist. Width 14.5 % (11.5-14.5); White Blood Cell Count 10.5 10^3/uL (4.8-10.8)
[2024-10-15 05:12] LABS: Troponin I 0.032 ng/ml
[2024-10-15 05:19] LABS: ALT (SGPT) 23 U/L (0-35); AST (SGOT) 36 U/L (14-36); Albumin 2.7 g/dl (3.5-5.0); Alkaline Phosphatase 77 U/L (38-126); Blood Urea Nitrogen 14 mg/dl (7-17); Calcium 8.9 mg/dl (8.4-10.2); Carbon Dioxide 29 mmol/L (22-30); Chloride 106 mmol/L (98-107); Estimated Creatinine Clearance 65 ml/min; Glucose 117 mg/dl (70-99); Lipase 123 U/L (23-300); Magnesium 1.9 mg/dl (1.6-2.3); Potassium 3.1 mmol/L (3.5-5.1); Sodium 138 mmol/L (135-145); Total Protein 4.9 g/dl (6.3-8.2); eGFR > 60.00
[2024-10-15] MEDS: KCL 270 MEQ IV (06:23)
--- NOTE | 2024-10-15 08:12 | W.PN.HOSP.TC ---
Addendum entered and electronically signed by Angélica Feng MD 10/15/24 12:32:
I saw and evaluated the patient independently. I reviewed the resident�s note and agree with findings and plan as documented by Dr. Lozada.
GENERAL: chronically ill appearing female in no apparent distress
HEENT: NC/AT--NGT in place
HEART: regular rate and rhythm, +S1, +S2
LUNGS : clear to auscultation bilaterally
ABDOM: soft, nontender, distended, decreased bowel sounds
EXT: no cyanosis, clubbing, or edema
NEUROLOGIC: apparent dementia
Small bowel obstruction with concern for possible ischemic bowel on admission--SBO likely due to adhesions given history of resection--blood cultures neg to date--apprec surg--NPO/IVF/NGT--PRN IV Dilaudid and Zofran
SIRS present and possible sepsis on admission-- likely secondary to above with ischemic bowel as potential infectious source-- cont Zosyn started 10/13--WBC now in normal range--Continue antibiotics for today if remains stable and cultures neg would
d/c abx in AM
Metabolic acidosis with elevated anion gap (17) likely secondary to lactic acidosis--likely hypoperfusion secondary to SBO/?bowel ischemia--resolved
Elevated lipase on admission (3541)--likely compression of pancreas from gastric/bowel distention, ARLIN may be contributing--presentation and CT not consistent with pancreatitis--resolved
ARLIN (Cr baseline ~0.8)--Cr 1.5 on admission, suspect due to hypovolemia--back to baseline--continue IV hydration while n.p.o. and monitor
Elevated troponin (0.108 on admission) with no chest pain--most likely nonischemic myocardial injury--troponin downtrending x 2
H/o advanced dementia, mood disorder--hold home meds given n.p.o., plan to resume when tolerating p.o.--PRN IV Ativan ordered, fall precautions, nonviolent restraints due to attempts to remove NGT
Osteoarthritis s/p multiple orthopedic surgeries--reassess for pain control as needed--prn IV acetaminophen for mild pain while npo
S/p bilateral mastectomy with reconstruction surgery--unclear if this included lymphadenectomy, bilateral upper extremities nonedematous on exam--caution with BUE, BP cuff on LE
Former smoker--no intervention needed
Code status-- Full Code (per advanced directive, full code with all life sustaining measures at least initially for 14 days; surrogate may adjust duration if patient is permanently unconscious with no hope of recovery)
DVT proph-- Heparin SC every 12h
renew mitts so doesn't pull out NGT
Original Note:
Today's Communication/Plan
-
Consider observation off antibiotics. Continue IV hydration, NPO, NGT decompression.
Assessment / Plan
Assessment / Plan
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 Family also reported breathing heavily, abdominal
distention, and more confused than baseline. In the ED, she was found to have a small bowel obstruction and NGT was placed, which drained ~750 mL liquid stool initially. CT scan showed distention of stomach and numerous loops of small bowel,
favored to represent SBO; no evidence of pneumoperitoneum. Labs were notable for elevated WBC, lactate, lipase, troponin. She was started on IV Zosyn and admitted to IMU for sepsis secondary to SBO and concern for possible ischemic bowel. General
surgery was consulted��rec medical management provided and NGT decompression, no plans for surgery at this time.
Small bowel obstruction with concern for possible ischemic bowel on admission--SBO likely 2/2 adhesions given history of resection, but broad differential--Abd CT on admission consistent with SBO--blood cultures x 2 obtained, NG @ 24h, final result
pending--General Surgery following, appreciate recs--continue n.p.o. with NGT to low intermittent suction for decompression; may need CT with PO contrast pending progression--continue IV hydration, and supportive meds--PRN IV Dilaudid and Zofran
already ordered--follow CBC, CMP--May need eventual ST eval
SIRS (leukocytosis, tachycardia) and possible sepsis on admission-- likely secondary to above with ischemic bowel as potential infectious source--plan as above. IV Zosyn started 10/13--WBC trended down, remains afebrile, blood cultures
NGTD--Consider observing off antibiotics, follow wbc/temperature curve.
Metabolic acidosis with elevated anion gap (17) secondary to lactic acidosis--likely hypoperfusion secondary to SBO/?bowel ischemia--lactate downtrending--repeat AM, plan as above
Elevated lipase on admission (3541)--likely compression of pancreas from gastric/bowel distention, ARLIN may be contributing--presentation and CT not consistent with pancreatitis--resolved, lipase normalized to 123
ARLIN (Cr baseline ~0.8)--Cr 1.5 on admission, suspect due to hypovolemia--back to baseline--continue IV hydration while n.p.o. and monitor
Elevated troponin (0.108 on admission) with no chest pain--most likely nonischemic myocardial injury--troponin downtrending x 3 and normalized
H/o advanced dementia, mood disorder--hold home meds given n.p.o., plan to resume when tolerating p.o.--PRN IV Ativan ordered, fall precautions, nonviolent restraints due to attempts to remove NGT, 1:1 present
Other:
Osteoarthritis s/p multiple orthopedic surgeries--reassess for pain control as needed
S/p bilateral mastectomy with reconstruction surgery--unclear if this included lymphadenectomy, bilateral upper extremities nonedematous on exam--caution with BUE, BP cuff on LE
Former smoker--no intervention needed
Code status: Full (per advanced directive, full code with all life sustaining measures at least initially for 14 days; surrogate may adjust duration if patient is permanently unconscious with no hope of recovery)
VTE ppx: Heparin SC every 12h
Diet: NPO
Dispo planning: Pending clinical course and PT eval when able
Family updated extensively 10/14 ( Amanuel, daughter Uma)
10/13/2024 abdomen/pelvis CT
IMPRESSION:
There is extensive gastric distention with numerous loops of small bowel extending into the pelvis. There is no discrete transition point identified, however evaluation of the pelvis is limited secondary to streak artifact and findings are favored
to represent a small bowel obstruction. There is no evidence of pneumoperitoneum.
Bilateral nonobstructing renal calculi measuring up to 6 mm on the left and 3 mm on the right, unchanged.
10/13/2024 chest x-ray
FINDINGS:
Lines and tubes: None.
Lungs: The lungs are clear. No pleural effusion or pneumothorax.
Heart: Cardiac and mediastinal contours are unremarkable. Minimal atherosclerotic calcifications of the aortic arch.
Osseous structures: Visualized osseous structures are within normal limits. Bilateral breast prostheses. Surgical clips project over the right upper quadrant.
Gaseous distention of the stomach.
IMPRESSION:
No acute cardiopulmonary abnormality.
10/13/2024 chest x-ray
IMPRESSION:
Nasogastric tube with tip in proximal stomach.
Anticipated Discharge: > 48 hours
Subjective/Interval History
-
Date of Service: October 15, 2024
No acute events overnight. Continues to try to remove NG tube, 1:1 now present for supervision and reorientation. Sleeping comfortably, awoken to ask if anything is bothering her or she is in any pain--she offers no complaints.
Objective Data
-
Labs:
Laboratory Results
10/15/24
03:39
WBC 10.5
Hgb 11.9 L
Hct 34.7 L
Plt Count 219
Sodium 138
Potassium 3.1 L
Chloride 106
Carbon Dioxide 29
BUN 14
Creatinine 0.7
Glucose 117 H
Calcium 8.9
Total Bilirubin 1.0
AST 36
ALT 23
Alkaline Phosphatase 77
Vital Signs:
Vital Signs
Temp Pulse Resp BP Pulse Ox
98.8 F 85 17 145/45 95
10/15/24 07:25 10/15/24 06:00 10/15/24 06:00 10/15/24 06:00 10/15/24 06:00
I&O
10/14/24 10/15/24 10/16/24
06:59 06:59 06:59
Intake Total 1200 / 1200
Output Total 800 / 800 800 / 800
Balance -800 / -800 400 / 400
Review of Systems
-
Unable to obtain full review of systems at this time due to: Dementia
Physical Exam
-
General: No Apparent Distress; Negative Conversant
HEENT: Normocephalic, Atraumatic and Other (NGT to wall suction)
Respiratory: Clear to Auscultation (Anterior lung aden) and Non Labored Respirations
Cardiac: Regular Rhythm and S1/S2
GI: Soft, Nontender, Nondistended and Other (No rebound/rigidity/involuntary guarding)
Musculoskeletal: No Clubbing, No Cyanosis, No Edema and Other (Bilateral mitts on hands, BP cuff on left calf)
Skin: Warm and Dry
Neuro: Awake; Negative Oriented (Oriented to self (name/, will not state age); will not answer where we are)
Psych: Apparent Dementia; Negative Intact Judgement/Insight
Data Reviewed
-
Diagnostic Radiology: Image personally visualized and interpreted, Report Reviewed by me and Discussed with Patient
CT Scan: Image personally visualized and interpreted, Report Reviewed by me and Discussed with Patient
Labs: Labs Reviewed by me, Discussed with Physician, Discussed with Nurse, Discussed with Patient and Discussed with Family
--- NOTE | 2024-10-15 08:32 | PTCARENOTE ---
Patient received from night baker. Patient resting comfortably in bed. AAOx1, mostly to self. VSS. No events noted overnight. No complaints of pain. Currently on Room Air. NG tube to left nare set to low intermittent suction, brown output
after flushing per order. IV fluids through IV and also receiving k-rider. 1:1 observation in the room. Restraints and mitts in place for attempts of tube removal. Call walsh in reach.
[2024-10-15] MEDS: ZOSYN IV (09:52)
[2024-10-15] MEDS: NSS (PRESERVATIVE FREE) 10 ML IV (10:05)
[2024-10-15] MEDS: PROTONIX IV 40 MG IV (10:05)
[2024-10-15] MEDS: HEPARIN 5000 UNITS SC ×2 (10:05→21:04)
[2024-10-15] MEDS: D5/0.9% with KCL 40 MEQ 1000 IV ×2 (10:06→21:04)
[2024-10-15] MEDS: DESENEX/MITRAZOL/ZEASORB 1 APPLIC TOPICAL ×2 (10:06→21:05)
--- NOTE | 2024-10-15 14:17 | W.PN.GS2 ---
Addendum entered and electronically signed by Chad Murphy MD 10/15/24 14:49:
Patient seen and examined.
Delirious. Unable to participate in encounter.
Gen: NAD
HEENT: clear output
Abd: soft, tender, less distended, non-peritoneal
Labs reviewed.
79 yo female p/w abdominal distention related to a likely partial small bowel obstruction probably related to adhesions, though possible due to dysmotility, malignancy, or medication induced.
AFVSS
Leukocytosis resolved
ARLIN improving with IVF
Lipase now normalized
Passed BM
Difficult clinical situation given her severe delirium and unable to obtain a adequate history and physical exam. Plan for a repeat CT scan with oral contrast to rule out a persistent obstruction and hopefully elucidate a clear cause for her
symptoms.
Plan:
-- Repeat CT with PO (via NGT) and IV contrast today for further evaluation
-- Continue npo/NGT decompression pending above
-- IVF
-- Pain control: Tylenol, Toradol
-- DVT: SQH
-- GI: PPI
Original Note:
Today's Communication / Plan
-
CT abd/pelvis with IV/PO contrast
Assessment / Plan
-
79 yo female p/w abdominal distention related to a likely partial small bowel obstruction probably related to adhesions, though possible due to dysmotility, malignancy, or medication induced.
AFVSS
Leukocytosis resolved
ARLIN improving with IVF
Lipase now normalized
Passed BM
Plan:
continue npo/NGT decompression
plan repeat CT with iv and oral contrast today for further evaluation
c/w IVF
analgesics/antiemetics prn
abx as per primary team
VTE ppx as per primary team
Subjective Data
-
Date of Service: October 15, 2024
Patient seen and examined at bedside with Dr. Murphy. More alert today. Calling out not to be touched with abdominal exam. Not answering questions with meaningful responses. Soft mitt restraints.
Objective Data
-
Intake and Output
10/14/24 10/15/24 10/16/24
06:59 06:59 06:59
Intake Total 1200 / 1200
Output Total 800 / 800 800 / 800
Balance -800 / -800 400 / 400
Intake:
IV fluids (Total) 1200 / 1200
Output:
Gastrointestinal tube output ( 800 / 800
Total)
Urine, Voided 800 / 800
Other:
How many times incontinent 1
SATURATED amount urine
Vital Signs
Temp Pulse Resp BP Pulse Ox
98.7 F 85 17 145/45 95
10/15/24 12:29 10/15/24 06:00 10/15/24 06:00 10/15/24 06:00 10/15/24 06:00
Lab Results
10/15/24 03:39
10/15/24 03:39
Calcium 8.9 mg/dl (8.4-10.2) 10/15/24 03:39
Magnesium 1.9 mg/dl (1.6-2.3) 10/15/24 03:39
Total Bilirubin 1.0 mg/dl (0.2-1.3) 10/15/24 03:39
AST 36 U/L (14-36) 10/15/24 03:39
ALT 23 U/L (0-35) 10/15/24 03:39
Alkaline Phosphatase 77 U/L (38-126) 10/15/24 03:39
Total Protein 4.9 g/dl (6.3-8.2) L 10/15/24 03:39
Albumin 2.7 g/dl (3.5-5.0) L 10/15/24 03:39
Physical Exam
-
NAD
ABD softly distended, generalized tenderness
NGT with low output of thick brown sludge
[2024-10-15] MEDS: OMNIPAQUE 50 ML PO (14:33)
[2024-10-15] MEDS: NSS (PRESERVATIVE FREE) 0.5 ML IV (16:37)
[2024-10-15] MEDS: ATIVAN 1 MG IV (16:37)
--- NOTE | 2024-10-15 19:20 | PTCARENOTE ---
pt bladder scanned per physician order at 19:05. Pt incontinent of urine prior to bladder scan. PVR 240ml. Rosado ordered for bladder scan over 400ml. No need for rosado catheter at this time. 1:1 at bedside. Care ongoing.
[2024-10-16] VITALS (11 sets, daily range): BP systolic 109–155; BP diastolic 56–108
[2024-10-16 05:02] LABS: % Basophils 0.4 % (0-2); % Immature Granulocytes 0.4 % (0-0.5); % Monocytes 9.6 % (1.7-9.3); % Neutrophils 76.6 % (42.2-75.2); Absolute Eosinophils 0.2 10^3/uL (0-0.7); Absolute Lymphocytes 1.1 10^3/uL (1.2-3.4); Absolute Monocytes 0.9 10^3/uL (0.1-0.6); Absolute Neutrophils 7.4 10^3/uL (1.4-6.5); Hematocrit 33.9 % (37.0-47.0); Hemoglobin 11.6 g/dL (12.0-16.0); Mean Corp Hgb Conc. 34.2 g/dL (33.0-37.0); Mean Corpuscular Hgb 30.4 pg (27.0-31.0); Mean Corpuscular Volume 88.7 fL (81.0-99.0); Mean Platelet Volume 10.6 fL (7.4-10.4); Nucleated Red Blood Cells % 0 %; Platelet Count 193 10^3/uL (130-400); Red Blood Cell Count 3.82 10^6/uL (4.20-5.40); Red Cell Dist. Width 13.9 % (11.5-14.5); White Blood Cell Count 9.6 10^3/uL (4.8-10.8)
[2024-10-16 05:27] LABS: Lactic Acid 0.7 mmol/L (0.7-2.0)
[2024-10-16 05:29] LABS: ALT (SGPT) 24 U/L (0-35); AST (SGOT) 33 U/L (14-36); Albumin 2.8 g/dl (3.5-5.0); Alkaline Phosphatase 83 U/L (38-126); Blood Urea Nitrogen 6 mg/dl (7-17); Calcium 9.2 mg/dl (8.4-10.2); Carbon Dioxide 27 mmol/L (22-30); Chloride 109 mmol/L (98-107); Estimated Creatinine Clearance 75 ml/min; Glucose 110 mg/dl (70-99); Magnesium 1.8 mg/dl (1.6-2.3); Potassium 3.8 mmol/L (3.5-5.1); Sodium 139 mmol/L (135-145); Total Bilirubin 0.8 mg/dl (0.2-1.3); Total Protein 5.1 g/dl (6.3-8.2); eGFR > 60.00
--- NOTE | 2024-10-16 05:40 | W.PN.UPDATE ---
Update Note
Progress Note Update
RN reported noted left arm swollen. Patient seen and evaluated, left arm is swollen, tight, warmth, no redness or extravasation noted. + pulses, facial grimaces noted upon movement of the arm. Unable to cooperate at present. Will order US to rule
out DVT.
--- NOTE | 2024-10-16 05:57 | PTCARENOTE ---
Pt left upper extremity noted to be swollen and tight. No warmth or redness. +pulses. IVF stopped. RN RESOURCE NURSE notified. IV removed from L arm and LUE elevated. VSS. Pt denies any pain. 1:1 at bedside. Care ongoing.
[2024-10-16] MEDS: D5/0.9% with KCL 40 MEQ IV (08:03)
--- NOTE | 2024-10-16 09:20 | W.PN.HOSP.TC ---
Addendum entered and electronically signed by Angélica Feng MD 10/16/24 14:54:
I saw and evaluated the patient independently. I reviewed the resident�s note and agree with findings and plan as documented by Dr. Lozada.
GENERAL: chronically ill appearing female in no apparent distress
HEENT: NC/AT--NGT in place
HEART: regular rate and rhythm, +S1, +S2
LUNGS : clear to auscultation bilaterally
ABDOM: soft, tender to palpation, distended, decreased bowel sounds
EXT: no cyanosis, clubbing, or edema
NEUROLOGIC: apparent dementia
Small bowel obstruction with concern for possible ischemic bowel on admission--SBO likely due to adhesions given history of resection--blood cultures neg to date--apprec surg--CT scan without obstruction on 10/15, contrast in colon 10/16--d/c NGT by
surgery, clears---PRN IV Dilaudid and Zofran
SIRS present and possible sepsis on admission-- likely secondary to above with ischemic bowel as potential infectious source-- cont Zosyn started 10/13--WBC now in normal range-- d/c abx
Metabolic acidosis with elevated anion gap (17) likely secondary to lactic acidosis--likely hypoperfusion secondary to SBO/?bowel ischemia--resolved
Elevated lipase on admission (3541)--likely compression of pancreas from gastric/bowel distention, ARLIN may be contributing--presentation and CT not consistent with pancreatitis--resolved
ARLIN (Cr baseline ~0.8)--Cr 1.5 on admission, suspect due to hypovolemia--back to baseline--continue IV hydration while n.p.o. and monitor
Elevated troponin (0.108 on admission) with no chest pain--most likely nonischemic myocardial injury--troponin downtrending x 2
H/o advanced dementia, mood disorder--RESUME home meds
Osteoarthritis s/p multiple orthopedic surgeries--reassess for pain control as needed
S/p bilateral mastectomy with reconstruction surgery--unclear if this included lymphadenectomy, bilateral upper extremities nonedematous on exam--caution with BUE, BP cuff on LE
Former smoker--no intervention needed
Code status-- Full Code (per advanced directive, full code with all life sustaining measures at least initially for 14 days; surrogate may adjust duration if patient is permanently unconscious with no hope of recovery)
DVT proph--SC Heparin
Original Note:
Today's Communication/Plan
-
Await CT results, NGT per general surgery
Assessment / Plan
Assessment / Plan
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 Family also reported breathing heavily, abdominal
distention, and more confused than baseline. In the ED, she was found to have a small bowel obstruction and NGT was placed, which drained ~750 mL liquid stool initially. CT scan showed distention of stomach and numerous loops of small bowel,
favored to represent SBO; no evidence of pneumoperitoneum. Labs were notable for elevated WBC, lactate, lipase, troponin. She was started on IV Zosyn and admitted to IMU for sepsis secondary to SBO and concern for possible ischemic bowel. General
surgery was consulted��rec medical management provided and NGT decompression, no plans for surgery at this time.
Small bowel obstruction with concern for possible ischemic bowel on admission--SBO likely 2/2 adhesions given history of resection, but broad differential--Abd CT on admission consistent with SBO--blood cultures x 2 obtained, NG @ 48h, final result
pending--General Surgery following, appreciate recs--maintain NGT decompression pending results of CT with p.o. contrast this AM per gen surg--continue IV hydration, and supportive meds--PRN IV Dilaudid and Zofran already ordered--follow CBC,
CMP--May need eventual ST eval
SIRS (leukocytosis, tachycardia) and possible sepsis on admission-- likely secondary to above with ischemic bowel as potential infectious source--plan as above. s/p Zosyn 10/13-10/14--WBC trended down, remains afebrile, blood cultures NGTD--observe
off, follow wbc/temperature curve.
LUE swelling-- Discontinued IV of LUE, check US
Metabolic acidosis with elevated anion gap (17) secondary to lactic acidosis on admission--likely hypoperfusion secondary to SBO/?bowel ischemia--resolved, lactate normalized
Elevated lipase on admission (3541)--likely compression of pancreas from gastric/bowel distention, ARLIN may be contributing--presentation and CT not consistent with pancreatitis--resolved, lipase normalized
ARLIN (Cr baseline ~0.8)--Cr 1.5 on admission, suspect due to hypovolemia--back to baseline--continue IV hydration while n.p.o. and monitor
Elevated troponin (0.108 on admission) with no chest pain--most likely nonischemic myocardial injury--troponin downtrending x 3 and normalized
H/o advanced dementia, mood disorder--hold home meds given n.p.o., plan to resume when tolerating p.o.--PRN IV Ativan ordered, fall precautions, nonviolent restraints due to attempts to remove NGT, 1:1 present
Other:
Osteoarthritis s/p multiple orthopedic surgeries--reassess for pain control as needed
S/p bilateral mastectomy with reconstruction surgery--unclear if this included lymphadenectomy, bilateral upper extremities nonedematous on exam initially--caution with BUE, BP cuff on LE
Former smoker--no intervention needed
Code status: Full (per advanced directive, full code with all life sustaining measures at least initially for 14 days; surrogate may adjust duration if patient is permanently unconscious with no hope of recovery)
VTE ppx: Heparin SC every 12h
Diet: NPO
Dispo planning: Pending clinical course and PT eval when able
Family updated extensively 10/14 ( Amanuel, daughter Uma)
10/13/2024 abdomen/pelvis CT
IMPRESSION:
There is extensive gastric distention with numerous loops of small bowel extending into the pelvis. There is no discrete transition point identified, however evaluation of the pelvis is limited secondary to streak artifact and findings are favored
to represent a small bowel obstruction. There is no evidence of pneumoperitoneum.
Bilateral nonobstructing renal calculi measuring up to 6 mm on the left and 3 mm on the right, unchanged.
10/13/2024 chest x-ray
FINDINGS:
Lines and tubes: None.
Lungs: The lungs are clear. No pleural effusion or pneumothorax.
Heart: Cardiac and mediastinal contours are unremarkable. Minimal atherosclerotic calcifications of the aortic arch.
Osseous structures: Visualized osseous structures are within normal limits. Bilateral breast prostheses. Surgical clips project over the right upper quadrant.
Gaseous distention of the stomach.
IMPRESSION:
No acute cardiopulmonary abnormality.
10/13/2024 chest x-ray
IMPRESSION:
Nasogastric tube with tip in proximal stomach.
10/16/2024 abdomen/pelvis ct w iv/po contrast
Bowel loops are normal caliber. The terminal ileum and appendix are within normal limits. Oral contrast has not yet reached the colon. There is moderate artifact in the pelvis secondary to the bilateral hip hardware.
There are surgical clips in the mid abdomen consistent with previous surgery. In this region, there is a prominent loop of small bowel measuring 5.7 cm in maximum diameter. This measures approximately 6 cm in length and has a similar appearance on
the previous exam.
IMPRESSION: Mild diffuse gastric wall thickening concerning for gastritis. . New. Previous gastric distention has resolved.
Possible stranding of the upper abdominal mesentery versus findings due to patient motion artifact. New. Mesenteric pathology cannot be excluded
Mild nonspecific free fluid in the pelvis. New. Etiology unknown. Probably reactive. Uncommon in a postmenopausal female.
Small left ovarian cyst. Stable.
Tiny bilateral pleural effusions. New. Mild bibasilar atelectasis. New
Small splenic cyst. Stable
Prior cholecystectomy. Stable
Bilateral nonobstructing renal stones. Stable. Too small to characterize hypodense left renal lesion likely a benign cyst. Stable.
Postsurgical change in the abdomen. Stable
10/06/2024
FINDINGS: AP supine examination of the abdomen, with 2 radiographs, obtained at 0747 hours.
Nasogastric tube is present with tip projecting over the left upper quadrant within the stomach.
D luminal contrast agent is mainly within the colon, including extension to the rectum. Mild to moderate distention of the rectum with stool and contrast.
There is a slightly dilated loop of air-filled small bowel in the left upper quadrant, which could represent focal ileus or low-grade partial obstruction.
Surgical clips in the right upper quadrant compatible previous cholecystectomy.
Bilateral hip prostheses are present.
Mild levoconvex scoliosis centered in the midlumbar spine. Changes of degenerative disc disease which appear greatest at L2-3.
IMPRESSION: GI luminal contrast agent administered for CT scan has passed into the colon including the rectum.
Anticipated Discharge: > 48 hours
Subjective/Interval History
-
Date of Service: October 16, 2024
No acute events overnight. Continues to try to remove NG tube, 1:1 present for supervision and reorientation. Offers no complaints.
Objective Data
-
Labs:
Laboratory Results
10/16/24
04:10
WBC 9.6
Hgb 11.6 L
Hct 33.9 L
Plt Count 193
Sodium 139
Potassium 3.8
Chloride 109 H
Carbon Dioxide 27
BUN 6 L
Creatinine 0.6
Glucose 110 H
Calcium 9.2
Total Bilirubin 0.8
AST 33
ALT 24
Alkaline Phosphatase 83
10/13/24 16:21 Blood/Venous Blood Culture - Preliminary
No Growth in 48 hours- Final report to follow
10/13/24 16:21 Blood/Venous Blood Culture - Preliminary
No Growth in 48 hours- Final report to follow
Vital Signs:
Vital Signs
Temp Pulse Resp BP Pulse Ox
99.1 F 92 17 155/75 96
10/16/24 06:52 10/16/24 00:15 10/16/24 00:15 10/16/24 00:15 10/15/24 23:20
I&O
10/15/24 10/16/24 10/17/24
06:59 06:59 06:59
Intake Total 1200 / 1200 600 / 600
Output Total 800 / 800 250 / 250
Balance 400 / 400 -250 / -250 600 / 600
Review of Systems
-
Unable to obtain full review of systems at this time due to: Dementia
Physical Exam
-
General: No Apparent Distress; Negative Conversant
HEENT: Normocephalic, Atraumatic and Other (NGT to wall suction)
Respiratory: Clear to Auscultation (Anterior lung aden) and Non Labored Respirations
Cardiac: Regular Rhythm and S1/S2
GI: Soft, Nondistended, Tender (Epigastric) and Other (No rebound/rigidity)
Musculoskeletal: No Clubbing, No Cyanosis, Edema, Left Upper Extrem and Other (Bilateral mitts/soft limb restraints on hands, BP cuff on calf)
Skin: Warm and Dry
Neuro: Awake; Negative Oriented (Oriented to self (name/, will not state age); will not answer where we are)
Psych: Apparent Dementia; Negative Intact Judgement/Insight
Data Reviewed
-
Diagnostic Radiology: Image personally visualized and interpreted, Report Reviewed by me and Discussed with Patient
CT Scan: Image personally visualized and interpreted, Report Reviewed by me and Discussed with Patient
Labs: Labs Reviewed by me, Discussed with Physician, Discussed with Nurse, Discussed with Patient and Discussed with Family
[2024-10-16] MEDS: HEPARIN 5000 UNITS SC ×2 (10:18→20:13)
[2024-10-16] MEDS: DESENEX/MITRAZOL/ZEASORB 1 APPLIC TOPICAL ×2 (10:18→20:13)
--- NOTE | 2024-10-16 10:28 | W.PN.GS2 ---
Today's Communication / Plan
-
-- DC NGT
-- Sips of clears, nursing to monitor need for SPONGE FISHERMAN evaluation (no history)
-- If tolerates dietary advancement would consider bowel regimen in the days to come
-- Transfer to floors
Assessment / Plan
-
79 yo female p/w abdominal distention related to a likely partial small bowel obstruction probably related to adhesions, though possible due to dysmotility, malignancy, or medication induced.
Repeat CT scan with oral contrast (10/15): Thickening of stomach wall, improved dilation of the stomach and small bowel, no evidence of obstruction, hazy appearance of the mesentery difficult to determine clinical significance given motion artifact,
no clear mass
Repeat abdominal x-ray (10/16): Contrast progression into the colon, mild residual dilation of the SB
AFVSS
Leukocytosis resolved
ARLIN improving with IVF
Lipase now normalized
Passed BM
Plan:
-- DC NGT
-- Sips of clears, nursing to monitor need for SPONGE FISHERMAN evaluation (no history)
-- mIVF
-- If tolerates dietary advancement would consider bowel regimen in the days to come
-- DVT: Lovenox
-- Transfer to floors
Subjective Data
-
Date of Service: October 16, 2024
Med interactions due to mental status. No reports from nursing work worsening abdominal pain, nausea, or vomiting. Continues to pass stools.
Objective Data
-
Intake and Output
10/15/24 10/16/24 10/17/24
06:59 06:59 06:59
Intake Total 1200 / 1200 600 / 600
Output Total 800 / 800 250 / 250
Balance 400 / 400 -250 / -250 600 / 600
Intake:
IV fluids (Total) 1200 / 1200 600 / 600
Output:
Gastrointestinal tube output ( 250 / 250
Total)
[place] Sump 250 / 250
Urine, Voided 800 / 800
Other:
How many times incontinent 1 2
MODERATE amount urine
How many times incontinent 1 1
SATURATED amount urine
Vital Signs
Temp Pulse Resp BP Pulse Ox
99.1 F 92 17 155/75 96
10/16/24 06:52 10/16/24 00:15 10/16/24 00:15 10/16/24 00:15 10/15/24 23:20
Lab Results
10/16/24 04:10
10/16/24 04:10
Calcium 9.2 mg/dl (8.4-10.2) 10/16/24 04:10
Magnesium 1.8 mg/dl (1.6-2.3) 10/16/24 04:10
Total Bilirubin 0.8 mg/dl (0.2-1.3) 10/16/24 04:10
AST 33 U/L (14-36) 10/16/24 04:10
ALT 24 U/L (0-35) 10/16/24 04:10
Alkaline Phosphatase 83 U/L (38-126) 10/16/24 04:10
Total Protein 5.1 g/dl (6.3-8.2) L 10/16/24 04:10
Albumin 2.8 g/dl (3.5-5.0) L 10/16/24 04:10
Physical Exam
-
Gen: NAD
Abd: soft, no worse distension, non-peritoneal, (exam limited by mental status)
Patient has a rosado catheter: No
Patient has a central line: No
[2024-10-16] MEDS: NSS (PRESERVATIVE FREE) IV (12:03)
[2024-10-16] MEDS: PROTONIX IV IV (12:03)
[2024-10-16] MEDS: APRESOLINE IV ×2 (16:52→20:14)
[2024-10-16] MEDS: D5/0.9% with KCL 40 MEQ 1000 IV (16:53)
[2024-10-16] MEDS: NAMENDA 10 MG PO (20:13)
[2024-10-16] MEDS: ARICEPT 10 MG PO (20:22)
[2024-10-16] MEDS: REMERON 30 MG PO (20:22)
--- NOTE | 2024-10-16 20:34 | PTCARENOTE ---
pt baseline confused and appears scared. emotional support given. Med/surg status; tele leads removed. VSS. pt incont in bed. All linens changed. CHG done. sacrum intact, pink and blanchable. left foot IV dressing intact, no s/s of infiltration. IVF
infusing per MAR. abd soft, +BS. pt sat up and able to swallow pills whole with water. no s/s of aspiration. oral care done. 1:1 sitter at bedside. restraints in place; checks in place per protocol.
[2024-10-17] VITALS (9 sets, daily range): BP systolic 118–179; BP diastolic 56–162; PULSE 79; O2SAT 97
[2024-10-17] MEDS: D5/0.9% with KCL 40 MEQ 1000 IV ×3 (02:30→23:00)
[2024-10-17] MEDS: APRESOLINE 5 MG IV (02:41)
[2024-10-17] MEDS: APRESOLINE IV ×5 (04:24→20:37)
[2024-10-17 05:50] LABS: % Basophils 0.5 % (0-2); % Eosinophils 4.1 % (0-6); % Immature Granulocytes 0.3 % (0-0.5); % Lymphocytes 12.8 % (20.5-51.1); % Monocytes 10.8 % (1.7-9.3); % Neutrophils 71.5 % (42.2-75.2); Absolute Eosinophils 0.3 10^3/uL (0-0.7); Absolute Lymphocytes 0.8 10^3/uL (1.2-3.4); Absolute Monocytes 0.7 10^3/uL (0.1-0.6); Absolute Neutrophils 4.7 10^3/uL (1.4-6.5); Hemoglobin 11.8 g/dL (12.0-16.0); Mean Corp Hgb Conc. 34.7 g/dL (33.0-37.0); Mean Corpuscular Hgb 30.6 pg (27.0-31.0); Mean Corpuscular Volume 88.1 fL (81.0-99.0); Mean Platelet Volume 10.1 fL (7.4-10.4); Nucleated Red Blood Cells % 0 %; Platelet Count 239 10^3/uL (130-400); Red Blood Cell Count 3.86 10^6/uL (4.20-5.40); Red Cell Dist. Width 13.6 % (11.5-14.5); White Blood Cell Count 6.6 10^3/uL (4.8-10.8)
[2024-10-17 06:01] LABS: ALT (SGPT) 23 U/L (0-35); AST (SGOT) 26 U/L (14-36); Albumin 2.7 g/dl (3.5-5.0); Alkaline Phosphatase 69 U/L (38-126); Blood Urea Nitrogen 6 mg/dl (7-17); Calcium 9.7 mg/dl (8.4-10.2); Carbon Dioxide 29 mmol/L (22-30); Chloride 112 mmol/L (98-107); Estimated Creatinine Clearance 75 ml/min; Glucose 116 mg/dl (70-99); Potassium 4.2 mmol/L (3.5-5.1); Sodium 142 mmol/L (135-145); Total Bilirubin 0.6 mg/dl (0.2-1.3); eGFR > 60.00
--- NOTE | 2024-10-17 08:40 | PTOTSP ---
Speech Language Pathology
Pt seen for clinical bedside swallow evaluation. Allowed sips of clears per surgery. RN reported pt took meds whole with water last evening without difficulty per report. P.O. trials of puree, regular solids, and thin liquids provided. Only
provided 1 tsp of puree and 1 bite of regular solid for evaluation purposes only. Slightly prolonged mastication noted, but able to clear oral cavity independently. No overt signs of aspiration.
Recommend:
(1) Thin liquids (currently limited to sips of clears per surgery)
(2) Advance to IDDSI Level 6 (soft/bite-sized) once cleared for solids
(3) Aspiration precautions: full supervision with assist as needed, feed only when alert
(4) Meds as tolerated
(5) [employer] to continue to follow
--- NOTE | 2024-10-17 08:40 | W.PN.HOSP.TC ---
Addendum entered and electronically signed by Stephanie Lozada MD, Resident 10/17/24 17:36:
~1700: Patient awake, alert, enjoying ice cream and no apparent difficulty swallowing. Medical updates provided to Amanuel at bedside and daughter Uma over the phone. Family to continue discharge planning discussions with CM tomorrow.
Addendum entered and electronically signed by Pancho Bush MD 10/17/24 15:07:
Seen and examined by me independently in collaboration with the director of medical education Dr. Lozada.
Lab data and imaging data reviewed.
Addendum as below :
Patient with dementia and currently confused but without agitation. She feels thirsty and wanted liquids.
Abdomen is soft.
Resolving partial small bowel obstruction. Clear for oral diet by surgery today.
Restart her home medications for dementia.
Transfer to [facility]
Original Note:
Today's Communication/Plan
-
Speech therapy evaluation, then will assess for diet advancement
Assessment / Plan
Assessment / Plan
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 Family also reported breathing heavily, abdominal
distention, and more confused than baseline. In the ED, she was found to have a small bowel obstruction and NGT was placed, which drained ~750 mL liquid stool initially. CT scan showed distention of stomach and numerous loops of small bowel,
favored to represent SBO; no evidence of pneumoperitoneum. Labs were notable for elevated WBC, lactate, lipase, troponin. She was started on IV Zosyn and admitted to IMU for sepsis secondary to SBO and concern for possible ischemic bowel. General
surgery was consulted��rec medical management provided and NGT decompression, no plans for surgery at this time.
Small bowel obstruction with concern for possible ischemic bowel on admission--SBO likely 2/2 adhesions given history of resection, but broad differential--Abd CT on admission consistent with SBO though no transition point seen--blood cultures x 2
obtained, NG @ 72h, final result pending--General Surgery following, appreciate recs--s/p NGT decompression; CT showed some distention still, improved; follow up xray confirmed contrast reached colon--advance diet as tolerated pending ST mira;
continue IV hydration, and supportive meds
SIRS (leukocytosis, tachycardia) on admission-- likely secondary to above, also had concern for sepsis with ischemic bowel as potential infectious source-- s/p Zosyn 10/13-10/14--WBC trended down, remains afebrile, blood cultures NGTD--observe off
antibiotics, follow wbc/temperature curve.
Superficial thrombophlebitis LUE-- Discontinued IV of LUE; continue supportive measures, heating pad, elevation
Metabolic acidosis with elevated anion gap (17) secondary to lactic acidosis on admission--likely hypoperfusion secondary to SBO/?bowel ischemia--resolved, lactate normalized
Elevated lipase on admission (3541)--likely compression of pancreas from gastric/bowel distention, ARLIN may be contributing--presentation and CT not consistent with pancreatitis--resolved, lipase normalized
ARLIN (Cr baseline ~0.8)--Cr 1.5 on admission, suspect due to hypovolemia--back to baseline--continue IV hydration while n.p.o. and monitor
Elevated troponin (0.108 on admission) with no chest pain--most likely nonischemic myocardial injury--troponin downtrending x 3 and normalized
H/o advanced dementia, mood disorder--hold home meds given n.p.o., plan to resume when tolerating p.o.--PRN IV Ativan ordered, fall precautions, nonviolent restraints for protective intervention, 1:1 present
Other:
Osteoarthritis s/p multiple orthopedic surgeries--reassess for pain control as needed
S/p bilateral mastectomy with reconstruction surgery--unclear if this included lymphadenectomy, bilateral upper extremities nonedematous on exam initially--caution with BUE, BP cuff on LE. Consider IR consult for access.
Former smoker--no intervention needed
Code status: Full (per advanced directive, full code with all life sustaining measures at least initially for 14 days; surrogate may adjust duration if patient is permanently unconscious with no hope of recovery)
VTE ppx: Heparin SC every 12h
Diet: NPO
Dispo planning: Pending clinical course and PT eval when able
Family updated extensively 10/14 ( Amanuel, daughter Uma)
10/13/2024 abdomen/pelvis CT
IMPRESSION:
There is extensive gastric distention with numerous loops of small bowel extending into the pelvis. There is no discrete transition point identified, however evaluation of the pelvis is limited secondary to streak artifact and findings are favored
to represent a small bowel obstruction. There is no evidence of pneumoperitoneum.
Bilateral nonobstructing renal calculi measuring up to 6 mm on the left and 3 mm on the right, unchanged.
10/13/2024 chest x-ray
FINDINGS:
Lines and tubes: None.
Lungs: The lungs are clear. No pleural effusion or pneumothorax.
Heart: Cardiac and mediastinal contours are unremarkable. Minimal atherosclerotic calcifications of the aortic arch.
Osseous structures: Visualized osseous structures are within normal limits. Bilateral breast prostheses. Surgical clips project over the right upper quadrant.
Gaseous distention of the stomach.
IMPRESSION:
No acute cardiopulmonary abnormality.
10/13/2024 chest x-ray
IMPRESSION:
Nasogastric tube with tip in proximal stomach.
10/15/2024 abdomen/pelvis ct w iv/po contrast
Bowel loops are normal caliber. The terminal ileum and appendix are within normal limits. Oral contrast has not yet reached the colon. There is moderate artifact in the pelvis secondary to the bilateral hip hardware.
There are surgical clips in the mid abdomen consistent with previous surgery. In this region, there is a prominent loop of small bowel measuring 5.7 cm in maximum diameter. This measures approximately 6 cm in length and has a similar appearance on
the previous exam.
IMPRESSION: Mild diffuse gastric wall thickening concerning for gastritis. . New. Previous gastric distention has resolved.
Possible stranding of the upper abdominal mesentery versus findings due to patient motion artifact. New. Mesenteric pathology cannot be excluded
Mild nonspecific free fluid in the pelvis. New. Etiology unknown. Probably reactive. Uncommon in a postmenopausal female.
Small left ovarian cyst. Stable.
Tiny bilateral pleural effusions. New. Mild bibasilar atelectasis. New
Small splenic cyst. Stable
Prior cholecystectomy. Stable
Bilateral nonobstructing renal stones. Stable. Too small to characterize hypodense left renal lesion likely a benign cyst. Stable.
Postsurgical change in the abdomen. Stable
10/06/2024 Abd xray
FINDINGS: AP supine examination of the abdomen, with 2 radiographs, obtained at 0747 hours.
Nasogastric tube is present with tip projecting over the left upper quadrant within the stomach.
D luminal contrast agent is mainly within the colon, including extension to the rectum. Mild to moderate distention of the rectum with stool and contrast.
There is a slightly dilated loop of air-filled small bowel in the left upper quadrant, which could represent focal ileus or low-grade partial obstruction.
Surgical clips in the right upper quadrant compatible previous cholecystectomy.
Bilateral hip prostheses are present.
Mild levoconvex scoliosis centered in the midlumbar spine. Changes of degenerative disc disease which appear greatest at L2-3.
IMPRESSION: GI luminal contrast agent administered for CT scan has passed into the colon including the rectum.
Periph vasc US 10/16/24
IMPRESSION: Nonocclusive thrombus is seen within the basilic vein within the distal aspect of the left upper arm.
The rest of the left upper extremity veins are patent as described.
Anticipated Discharge: 24 - 48 hours
Subjective/Interval History
-
Date of Service: October 17, 2024
No acute events overnight. Offers no complaints. Denies abdominal pain, nausea. 1:1 present at bedside.
Objective Data
-
Labs:
Laboratory Results
10/17/24
05:16
WBC 6.6
Hgb 11.8 L
Hct 34.0 L
Plt Count 239 D
Sodium 142
Potassium 4.2
Chloride 112 H
Carbon Dioxide 29
BUN 6 L
Creatinine 0.6
Glucose 116 H
Calcium 9.7
Total Bilirubin 0.6
AST 26
ALT 23
Alkaline Phosphatase 69
10/13/24 16:21 Blood/Venous Blood Culture - Preliminary
No Growth in 72 hours- Final report to follow
10/13/24 16:21 Blood/Venous Blood Culture - Preliminary
No Growth in 72 hours- Final report to follow
Vital Signs:
Vital Signs
Temp Pulse Resp BP Pulse Ox
98.3 F 83 19 118/59 98
10/16/24 23:04 10/17/24 02:41 10/16/24 23:04 10/17/24 04:15 10/17/24 02:47
I&O
10/16/24 10/17/24 10/18/24
06:59 06:59 06:59
Intake Total 600 / 600
Output Total 250 / 250
Balance -250 / -250 600 / 600
Review of Systems
-
Unable to obtain full review of systems at this time due to: Dementia
Physical Exam
-
General: No Apparent Distress; Negative Conversant
HEENT: Normocephalic and Atraumatic
Respiratory: Clear to Auscultation (Anterior lung aden) and Non Labored Respirations
Cardiac: Regular Rhythm and S1/S2
GI: Soft, Nondistended, Tender (Diffusely) and Other (No rebound/rigidity)
Musculoskeletal: No Clubbing, No Cyanosis, Edema, Left Upper Extrem (Improved) and Other (Bilateral soft limb restraints on hands, BP cuff on calf)
Skin: Warm, Dry and IV Access / Catheter Site (Left foot)
Neuro: Awake; Negative Oriented (Oriented to self (name/, will not state age); will not answer where we are)
Psych: Apparent Dementia; Negative Intact Judgement/Insight
Data Reviewed
-
Diagnostic Radiology: Image personally visualized and interpreted, Report Reviewed by me and Discussed with Patient
CT Scan: Image personally visualized and interpreted, Report Reviewed by me and Discussed with Patient
Labs: Labs Reviewed by me, Discussed with Physician, Discussed with Nurse, Discussed with Patient and Discussed with Family
--- NOTE | 2024-10-17 09:52 | W.PN.GS2 ---
Today's Communication / Plan
-
Advance diet
Assessment / Plan
-
79 yo female p/w abdominal distention related to a likely partial small bowel obstruction probably related to adhesions, though possible due to dysmotility, malignancy, or medication induced.
Repeat CT scan with oral contrast (10/15): Thickening of stomach wall, improved dilation of the stomach and small bowel, no evidence of obstruction, hazy appearance of the mesentery difficult to determine clinical significance given motion artifact,
no clear mass
Repeat abdominal x-ray (10/16): Contrast progression into the colon, mild residual dilation of the SB
AFVSS
Leukocytosis resolved
ARLIN improving with IVF
Passing stools, tolerating clears
Plan:
-- Appreciate SWITCHING CLERK eval, advance to IDDSI 6 diet (soft/bite sized) as tolerated
-- IVF as per primary team
-- If tolerates dietary advancement would consider bowel regimen in the days to come
-- DVT: Lovenox
-- Ok to transfer out of IMU from surgical standpoint
Subjective Data
-
Date of Service: October 17, 2024
Patient seen and examined at bedside with Dr. Hein. Unable to have meaningful conversation. No longer calling out in pain during abdominal exam, winced today.
Objective Data
-
Intake and Output
10/16/24 10/17/24 10/18/24
06:59 06:59 06:59
Intake Total 600 / 600
Output Total 250 / 250
Balance -250 / -250 600 / 600
Intake:
IV fluids (Total) 600 / 600
Output:
Gastrointestinal tube output ( 250 / 250
Total)
[place] Sump 250 / 250
Other:
How many times incontinent 1 2
MODERATE amount urine
How many times incontinent 1 1
SATURATED amount urine
Vital Signs
Temp Pulse Resp BP Pulse Ox
98.3 F 83 19 118/59 98
10/16/24 23:04 10/17/24 02:41 10/16/24 23:04 10/17/24 04:15 10/17/24 02:47
Lab Results
10/17/24 05:16
10/17/24 05:16
Calcium 9.7 mg/dl (8.4-10.2) 10/17/24 05:16
Magnesium 2.0 mg/dl (1.6-2.3) 10/17/24 05:16
Total Bilirubin 0.6 mg/dl (0.2-1.3) 10/17/24 05:16
AST 26 U/L (14-36) 10/17/24 05:16
ALT 23 U/L (0-35) 10/17/24 05:16
Alkaline Phosphatase 69 U/L (38-126) 10/17/24 05:16
Total Protein 5.0 g/dl (6.3-8.2) L 10/17/24 05:16
Albumin 2.7 g/dl (3.5-5.0) L 10/17/24 05:16
Physical Exam
-
Gen: NAD
Abd: soft, mild distension, non-peritoneal, (exam limited by mental status)
Patient has a rosado catheter: No
Patient has a central line: No
[2024-10-17] MEDS: PROTONIX IV 40 MG IV (10:01)
[2024-10-17] MEDS: REFRESH EYE DROPS (PF) 1 DROPS BOTH EYES (10:01)
[2024-10-17] MEDS: NSS (PRESERVATIVE FREE) 10 ML IV (10:01)
[2024-10-17] MEDS: HEPARIN 5000 UNITS SC ×2 (10:01→20:28)
[2024-10-17] MEDS: NAMENDA PO ×2 (10:02→10:40)
[2024-10-17] MEDS: DESENEX/MITRAZOL/ZEASORB 1 APPLIC TOPICAL ×2 (10:02→20:28)
[2024-10-17] MEDS: LEXAPRO PO ×2 (10:02→10:40)
--- NOTE | 2024-10-17 11:43 | PTCARENOTE ---
Pt presents as assessed. Aox1, more calm and cooperative, 1:1 d/c. B/l soft wrist restraints remain in place- see intervention. Pt withdrawn, minimal conversation. Refused oral medications; became agitated with this RN- Dr. Lozada made aware.
IVF infusing as ordered. Q2T maintained. Daughter updated via phone. Bed alarm in place for safety.
[2024-10-17] MEDS: REMERON 30 MG PO (20:28)
[2024-10-17] MEDS: NAMENDA 10 MG PO (20:28)
[2024-10-17] MEDS: ARICEPT 10 MG PO (20:28)
[2024-10-18 01:18] VITALS: BP 144/78
[2024-10-18] MEDS: APRESOLINE IV (01:20)
--- NOTE | 2024-10-18 05:04 | PTCARENOTE ---
Caring for pt overnight. Pt not oriented, unable to follow commands at time. Bed alarm on. IVF running, timed out around 0100, TT PROFESSOR OF BIOCHEMISTRY if wanting to renew since pt has a diet now. NO new IVF orders. Q2T. Incontinent. Pt very anxious and tearful at
times but able to calm down. Currently sleeping. Hourly rounds. All hydralazine doses held overnight d/t diastolic not meeting criteria. Will monitor.
[2024-10-18 05:05] LABS: Hematocrit 36.1 % (37.0-47.0); Hemoglobin 12.4 g/dL (12.0-16.0); Mean Corp Hgb Conc. 34.3 g/dL (33.0-37.0); Mean Corpuscular Hgb 30.4 pg (27.0-31.0); Mean Corpuscular Volume 88.5 fL (81.0-99.0); Mean Platelet Volume 9.7 fL (7.4-10.4); Platelet Count 245 10^3/uL (130-400); Red Blood Cell Count 4.08 10^6/uL (4.20-5.40); Red Cell Dist. Width 13.7 % (11.5-14.5); White Blood Cell Count 7.2 10^3/uL (4.8-10.8)
[2024-10-18 05:29] LABS: Blood Urea Nitrogen 9 mg/dl (7-17); Calcium 9.7 mg/dl (8.4-10.2); Carbon Dioxide 25 mmol/L (22-30); Chloride 113 mmol/L (98-107); Estimated Creatinine Clearance 65 ml/min; Glucose 104 mg/dl (70-99); Magnesium 1.9 mg/dl (1.6-2.3); Potassium 4.2 mmol/L (3.5-5.1); Sodium 142 mmol/L (135-145); eGFR > 60.00
[2024-10-18] MEDS: MIRALAX 17 GRAMS PO (09:03)
[2024-10-18] MEDS: NSS (PRESERVATIVE FREE) IV (09:03)
[2024-10-18] MEDS: REFRESH EYE DROPS (PF) 1 DROPS BOTH EYES (09:04)
[2024-10-18] MEDS: NAMENDA 10 MG PO ×2 (09:04→20:45)
[2024-10-18] MEDS: HEPARIN 5000 UNITS SC ×2 (09:04→20:43)
[2024-10-18] MEDS: LEXAPRO 20 MG PO (09:04)
[2024-10-18] MEDS: DESENEX/MITRAZOL/ZEASORB 1 APPLIC TOPICAL ×2 (09:05→20:48)
[2024-10-18 09:30] VITALS: BP 125/84
--- NOTE | 2024-10-18 09:38 | W.PN.HOSP.TC ---
Addendum entered and electronically signed by Stephanie Lozada MD, Resident 10/18/24 18:29:
Delayed entry from ~1430: Spoke with Amanuel and daughter Uma on phone for 30min. Provided updates on medical progress-- family pleased that partial SBO resolved. Majority of our conversation was regarding patient's increasing need for
supervision and physical assistance, and safety of various discharge plans. They desire eventual memory care unit for patient; encouraged them this is a very appropriate long-term goal. In the short-term after discharge from hospital, reiterated
that patient would benefit from this or SNF, and discharge home is unsafe option currently given the limited caregiver coverage. Relayed family's concerns with CM. Discharge planning ongoing.
Addendum entered and electronically signed by Pancho Bush MD 10/18/24 15:15:
Seen and examined by me independently in collaboration with the medical orderly Dr. Jaramillo.
Lab data and imaging data reviewed.
Addendum as below :
Last night events noted. She was restless and agitated. This morning pleasantly confused. Directable.
Tolerating diet without issues. Resolved partial small bowel obstruction. Back on her medications and diet.
She gets up and walks around in the room.
Patient with dementia. No agitation but restless and keeps getting out of the bed sec to her dementia. She would be best served in a dementia unit. As needed Risperdal ordered if she were to become agitated.
Watch for . Low dose Risperidal added for night time agitation. QTc on 10/14 was ok.
Original Note:
Today's Communication/Plan
-
Discharge planning ongoing
Assessment / Plan
Assessment / Plan
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 Family also reported breathing heavily, abdominal
distention, and more confused than baseline. In the ED, she was found to have a small bowel obstruction and NGT was placed, which drained ~750 mL liquid stool initially. CT scan showed distention of stomach and numerous loops of small bowel,
favored to represent SBO; no evidence of pneumoperitoneum. Labs were notable for elevated WBC, lactate, lipase, troponin. She was started on IV Zosyn and admitted to IMU for sepsis secondary to SBO and concern for possible ischemic bowel. General
surgery was consulted��rec medical management provided and NGT decompression, no plans for surgery at this time.
Small bowel obstruction with concern for possible ischemic bowel on admission--SBO likely 2/2 adhesions given history of resection, but broad differential--Abd CT on admission consistent with SBO though no transition point seen--blood cultures x 2
obtained, NG @ 4d, final result pending--General Surgery following, appreciate recs--s/p NGT decompression; CT showed some distention still, improved; follow up xray confirmed contrast reached colon--tolerating oral diet, can consider bowel regimen
if needed
SIRS (leukocytosis, tachycardia) on admission-- likely secondary to above, also had concern for sepsis with ischemic bowel as potential infectious source-- s/p Zosyn 10/13-10/14--WBC trended down, remains afebrile, blood cultures NGTD--observe off
antibiotics, follow wbc/temperature curve.
Superficial thrombophlebitis LUE-- Discontinued IV of LUE; continue supportive measures, heating pad, elevation
Metabolic acidosis with elevated anion gap (17) secondary to lactic acidosis on admission--likely hypoperfusion secondary to SBO/?bowel ischemia--resolved, lactate normalized
Elevated lipase on admission (3541)--likely compression of pancreas from gastric/bowel distention, ARLIN may be contributing--presentation and CT not consistent with pancreatitis--resolved, lipase normalized
ARLIN (Cr baseline ~0.8)--Cr 1.5 on admission, suspect due to hypovolemia--back to baseline--encourage oral hydration
Elevated troponin (0.108 on admission) with no chest pain--most likely nonischemic myocardial injury--troponin downtrending x 3 and normalized
H/o advanced dementia, mood disorder--resume home meds now that she is tolerating PO--will add on risperidone qhs and prn as needed
Other:
Osteoarthritis s/p multiple orthopedic surgeries--reassess for pain control as needed
S/p bilateral mastectomy with reconstruction surgery--unclear if this included lymphadenectomy, bilateral upper extremities nonedematous on exam initially--caution with BUE, BP cuff on LE
Former smoker--no intervention needed
Code status: Full (per advanced directive, full code with all life sustaining measures at least initially for 14 days; surrogate may adjust duration if patient is permanently unconscious with no hope of recovery)
VTE ppx: Heparin SC every 12h
Diet: Soft/bite sized, thin liquids
Dispo planninh care, discharge planning ongoing
Family updated extensively 10/14, 10/17 ( Amanuel, daughter Uma)
10/13/2024 abdomen/pelvis CT
IMPRESSION:
There is extensive gastric distention with numerous loops of small bowel extending into the pelvis. There is no discrete transition point identified, however evaluation of the pelvis is limited secondary to streak artifact and findings are favored
to represent a small bowel obstruction. There is no evidence of pneumoperitoneum.
Bilateral nonobstructing renal calculi measuring up to 6 mm on the left and 3 mm on the right, unchanged.
10/13/2024 chest x-ray
FINDINGS:
Lines and tubes: None.
Lungs: The lungs are clear. No pleural effusion or pneumothorax.
Heart: Cardiac and mediastinal contours are unremarkable. Minimal atherosclerotic calcifications of the aortic arch.
Osseous structures: Visualized osseous structures are within normal limits. Bilateral breast prostheses. Surgical clips project over the right upper quadrant.
Gaseous distention of the stomach.
IMPRESSION:
No acute cardiopulmonary abnormality.
10/13/2024 chest x-ray
IMPRESSION:
Nasogastric tube with tip in proximal stomach.
10/15/2024 abdomen/pelvis ct w iv/po contrast
Bowel loops are normal caliber. The terminal ileum and appendix are within normal limits. Oral contrast has not yet reached the colon. There is moderate artifact in the pelvis secondary to the bilateral hip hardware.
There are surgical clips in the mid abdomen consistent with previous surgery. In this region, there is a prominent loop of small bowel measuring 5.7 cm in maximum diameter. This measures approximately 6 cm in length and has a similar appearance on
the previous exam.
IMPRESSION: Mild diffuse gastric wall thickening concerning for gastritis. . New. Previous gastric distention has resolved.
Possible stranding of the upper abdominal mesentery versus findings due to patient motion artifact. New. Mesenteric pathology cannot be excluded
Mild nonspecific free fluid in the pelvis. New. Etiology unknown. Probably reactive. Uncommon in a postmenopausal female.
Small left ovarian cyst. Stable.
Tiny bilateral pleural effusions. New. Mild bibasilar atelectasis. New
Small splenic cyst. Stable
Prior cholecystectomy. Stable
Bilateral nonobstructing renal stones. Stable. Too small to characterize hypodense left renal lesion likely a benign cyst. Stable.
Postsurgical change in the abdomen. Stable
10/06/2024 Abd xray
FINDINGS: AP supine examination of the abdomen, with 2 radiographs, obtained at 0747 hours.
Nasogastric tube is present with tip projecting over the left upper quadrant within the stomach.
D luminal contrast agent is mainly within the colon, including extension to the rectum. Mild to moderate distention of the rectum with stool and contrast.
There is a slightly dilated loop of air-filled small bowel in the left upper quadrant, which could represent focal ileus or low-grade partial obstruction.
Surgical clips in the right upper quadrant compatible previous cholecystectomy.
Bilateral hip prostheses are present.
Mild levoconvex scoliosis centered in the midlumbar spine. Changes of degenerative disc disease which appear greatest at L2-3.
IMPRESSION: GI luminal contrast agent administered for CT scan has passed into the colon including the rectum.
Periph vasc US 10/16/24
IMPRESSION: Nonocclusive thrombus is seen within the basilic vein within the distal aspect of the left upper arm.
The rest of the left upper extremity veins are patent as described.
Anticipated Discharge: Within 24 hours
Subjective/Interval History
-
Date of Service: October 18, 2024
No acute events overnight. Did have overnight episode where she was confused, removed IV, and OOB without supervision. Pleasantly conversant this morning. Denies complaints. Review of systems negative-- denies dizziness, chest pain, shortness of
breath, abdominal pain, nausea, vomiting, diarrhea, constipation.
Objective Data
-
Labs:
Laboratory Results
10/18/24
04:51
WBC 7.2
Hgb 12.4
Hct 36.1 L
Plt Count 245
Sodium 142
Potassium 4.2
Chloride 113 H
Carbon Dioxide 25
BUN 9
Creatinine 0.7
Glucose 104 H
Calcium 9.7
10/13/24 16:21 Blood/Venous Blood Culture - Preliminary
No Growth in 4 days- Final report to follow
10/13/24 16:21 Blood/Venous Blood Culture - Preliminary
No Growth in 4 days- Final report to follow
Vital Signs:
Vital Signs
Temp Pulse Resp BP Pulse Ox
98.7 F 74 19 144/78 99
10/17/24 23:49 10/17/24 23:49 10/17/24 23:49 10/18/24 01:20 10/17/24 23:49
I&O
10/17/24 10/18/24 10/19/24
06:59 06:59 06:59
Intake Total 600 / 600 100 / 100
Output Total 200 / 200
Balance 600 / 600 -100 / -100
Review of Systems
-
Unable to obtain full review of systems at this time due to: Dementia
History Source: Patient
All other systems: Reviewed and negative
Physical Exam
-
General: No Apparent Distress; Negative Conversant
HEENT: Normocephalic and Atraumatic
Respiratory: Clear to Auscultation (Anterior lung aden) and Non Labored Respirations
Cardiac: Regular Rhythm and S1/S2
GI: Soft, Nondistended, Tender (Mild, significantly improved) and Other (No rebound/rigidity)
Musculoskeletal: No Clubbing, No Cyanosis, No Edema and Other (Bilateral soft limb restraints on hands, BP cuff on calf)
Skin: Warm and Dry
Neuro: Awake; Negative Oriented (Oriented to self (name/, will not state age); will not answer where we are)
Psych: Apparent Dementia; Negative Intact Judgement/Insight
Data Reviewed
-
Diagnostic Radiology: Image personally visualized and interpreted, Report Reviewed by me, Discussed with Patient and Discussed with Family
CT Scan: Image personally visualized and interpreted, Report Reviewed by me, Discussed with Patient and Discussed with Family
Labs: Labs Reviewed by me, Discussed with Physician, Discussed with Nurse, Discussed with Patient and Discussed with Family
--- NOTE | 2024-10-18 11:21 | W.PN.GS2 ---
Today's Communication / Plan
-
-- Appreciate CLINICAL LABORATORY TECHNICIAN mira, advance to IDDSI 6 diet (soft/bite sized) as tolerated
-- Miralax daily
Assessment / Plan
-
79 yo female p/w abdominal distention related to a likely partial small bowel obstruction probably related to adhesions, though possible due to dysmotility, malignancy, or medication induced.
Repeat CT scan with oral contrast (10/15): Thickening of stomach wall, improved dilation of the stomach and small bowel, no evidence of obstruction, hazy appearance of the mesentery difficult to determine clinical significance given motion artifact,
no clear mass
Repeat abdominal x-ray (10/16): Contrast progression into the colon, mild residual dilation of the SB
AFVSS
Leukocytosis resolved
ARLIN improving with IVF
Passing stools, tolerating clears
No changes from a surgical perspective. Continue diet as tolerated. Bowel meds ordered.
Plan:
-- Appreciate CLINICAL LABORATORY TECHNICIAN mira, advance to IDDSI 6 diet (soft/bite sized) as tolerated
-- Miralax daily
-- HLIV
-- DVT: Lovenox
-- Ok to transfer out of IMU from surgical standpoint
Subjective Data
-
Date of Service: October 18, 2024
Stable delirium/dementia. Denies worsening abdominal pain. No reports from nursing of nausea or vomiting. Continues to pass stool.
Objective Data
-
Intake and Output
10/17/24 10/18/24 10/19/24
06:59 06:59 06:59
Intake Total 600 / 600 100 / 100
Output Total 200 / 200
Balance 600 / 600 -100 / -100
Intake:
Oral fluids 100 / 100
IV fluids (Total) 600 / 600
Output:
Urine, Voided 200 / 200
Other:
How many times incontinent 2
MODERATE amount urine
How many times incontinent 1 1
SATURATED amount urine
Vital Signs
Temp Pulse Resp BP Pulse Ox
98.7 F 74 19 144/78 99
10/17/24 23:49 10/17/24 23:49 10/17/24 23:49 10/18/24 01:20 10/17/24 23:49
Lab Results
10/18/24 04:51
10/18/24 04:51
Calcium 9.7 mg/dl (8.4-10.2) 10/18/24 04:51
Magnesium 1.9 mg/dl (1.6-2.3) 10/18/24 04:51
Total Bilirubin 0.6 mg/dl (0.2-1.3) 10/17/24 05:16
AST 26 U/L (14-36) 10/17/24 05:16
ALT 23 U/L (0-35) 10/17/24 05:16
Alkaline Phosphatase 69 U/L (38-126) 10/17/24 05:16
Total Protein 5.0 g/dl (6.3-8.2) L 10/17/24 05:16
Albumin 2.7 g/dl (3.5-5.0) L 10/17/24 05:16
Physical Exam
-
Gen: NAD, more alert and cooperative
Abd: soft, NT, minimal much improved distension, non-peritoneal
Patient has a rosado catheter: No
Patient has a central line: No
--- NOTE | 2024-10-18 11:37 | CM ---
Addendum entered by Jackie Pitts RN 10/18/24 16:32:
Started on Risperdal.
Spoke with daughter Uma again; family is deciding about SNF for rehab followed by LTC, a SNF for memory care/LTC only, or taking patient home with 24 hr care. Daughter says her father is confused and agitated and wants to make the decision
himself. She is aware patient would need a reliable caregiver at home with 24 hr care. She is aware that her mother was started on Seroquel today and we are waiting to see if that helps her. Agreed with daughter's request to speak with both
daughter and however daughter could not get to come to the phone.
Plan SNF for rehab, SNF for memory care vs home with with 24 hr caregiver.
Original Note:
Patient with Hx advanced dementia, mood disorder with Dx SBO. Room air. Dysphagia diet. PT recommends 24 hr care. OT recommends skilled rehab. Per nursing; Pt not oriented, unable to follow commands, soft limb restraints.
Spoke with patient's daughter Uma; as per prior CM notes daughter was interested in short term rehab and possible LTC for both of her parents. D[facility] SN[facility] preferences [facility] and
[facility]. Daughter was made aware that we need to wait to make SNF referrals when her mother is able to have restraints off.
Plan SNF referrals once restraints are discontinued.
[2024-10-18] MEDS: RISPERDAL 0.25 MG PO ×2 (12:06→21:58)
--- NOTE | 2024-10-18 15:14 | PTCARENOTE ---
Assumed care of patient at beginning of this shift from previous RN with b/l soft wrist restraints and [address] Restraints removed as per physician order. Patient was on a regular bed that did not have a built in bed alarm; bed alarm
pad was in use. Patient set off alarm and was immediately up OOB; this happened twice. [facility] bed obtained from ICU and built in bed alarm initiated. Patient confused but mostly cooperative but does have some periods of agitation; prn dose of
Risperdal given as per order.
--- NOTE | 2024-10-18 15:49 | PTCARENOTE ---
Patient transferred to 2122 with belongings via stretcher accompanied by 2 volunteers and PCT.
--- NOTE | 2024-10-18 16:10 | PTCARENOTE ---
Received pt from IMU, VSS, pt oriented only to self, bed alarm in place. Pt resting comfortably in bed at this time.
[2024-10-18 16:11] VITALS: BP 115/65
[2024-10-18] MEDS: ARICEPT 10 MG PO (21:58)
[2024-10-18] MEDS: REMERON 30 MG PO (21:58)
[2024-10-18 23:25] VITALS: BP 121/66
[2024-10-18 23:52] VITALS: BP 121/66
[2024-10-19 07:25] VITALS: BP 107/85
[2024-10-19 07:45] LABS: Hematocrit 39.2 % (37.0-47.0); Hemoglobin 13.4 g/dL (12.0-16.0); Mean Corp Hgb Conc. 34.2 g/dL (33.0-37.0); Mean Corpuscular Hgb 30.6 pg (27.0-31.0); Mean Corpuscular Volume 89.5 fL (81.0-99.0); Mean Platelet Volume 10.3 fL (7.4-10.4); Platelet Count 288 10^3/uL (130-400); Red Blood Cell Count 4.38 10^6/uL (4.20-5.40); Red Cell Dist. Width 13.9 % (11.5-14.5); White Blood Cell Count 7.2 10^3/uL (4.8-10.8)
[2024-10-19 08:15] LABS: Blood Urea Nitrogen 9 mg/dl (7-17); Carbon Dioxide 28 mmol/L (22-30); Chloride 106 mmol/L (98-107); Estimated Creatinine Clearance 65 ml/min; Glucose 93 mg/dl (70-99); Potassium 4.2 mmol/L (3.5-5.1); Sodium 142 mmol/L (135-145); eGFR > 60.00
--- NOTE | 2024-10-19 08:51 | W.PN.HOSP.TC ---
Addendum entered and electronically signed by Stephanie Lozada MD, Resident 10/19/24 14:44:
Correction: Patient requires transport chair within their home to complete their daily activities. Patient is unable to self propel. Patient has caregiver to propel them.
Addendum entered and electronically signed by Pancho Bush MD 10/19/24 14:03:
Seen and examined by me independently in collaboration with the biomedical analytical scientist Dr. Lozada.
Lab data and imaging data reviewed.
Addendum as below :
Patient tolerating diet.. Pleasantly confused. No agitation.
Abdomen benign.
Medically stable for discharge.
Discussed with at bedside and also daughter and son on a video conference call with case management present. wants to take her home as he feels with the dementia home is the best discharge. Will check PT report from today and if
[facility] he would need to bring in more support services at night to help the situation. He wants to consider increased services at home and take her home. Case management to follow-up with the
and the family regarding disposition.
Total time of discharge 35 minutes
Original Note:
Today's Communication/Plan
-
Discharge planning ongoing
Assessment / Plan
Assessment / Plan
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 Family also reported breathing heavily, abdominal
distention, and more confused than baseline. In the ED, she was found to have a small bowel obstruction and NGT was placed, which drained ~750 mL liquid stool initially. CT scan showed distention of stomach and numerous loops of small bowel,
favored to represent SBO; no evidence of pneumoperitoneum. Labs were notable for elevated WBC, lactate, lipase, troponin. She was started on IV Zosyn and admitted to IMU for sepsis secondary to SBO and concern for possible ischemic bowel. General
surgery was consulted��rec medical management provided and NGT decompression, no plans for surgery at this time.
Partial small bowel obstruction with concern for possible ischemic bowel on admission--likely 2/2 adhesions given history of resection, but broad differential--Abd CT on admission consistent with SBO though no transition point seen--blood cultures x
2 obtained, final result no growth--Apprec general surgery--s/p NGT decompression; CT showed some distention still, improved; follow up xray confirmed contrast reached colon--Continues to tolerate oral diet, passing BM--partial SBO resolved,
medically stable for discharge.
SIRS (leukocytosis, tachycardia) on admission-- likely secondary to above, also had concern for sepsis with ischemic bowel as potential infectious source-- s/p Zosyn 10/13-10/14--WBC trended down, remains afebrile, blood cultures No growth--Resolved
Superficial thrombophlebitis LUE-- Discontinued IV of LUE; continue supportive measures, heating pad, elevation; no signs/symptoms of infection
Metabolic acidosis with elevated anion gap (17) secondary to lactic acidosis on admission--likely hypoperfusion secondary to SBO/?bowel ischemia--resolved, lactate normalized
Elevated lipase on admission (3541)--likely compression of pancreas from gastric/bowel distention, ARLIN may be contributing--presentation and CT not consistent with pancreatitis--resolved, lipase normalized
ARLIN (Cr baseline ~0.8)--Cr 1.5 on admission, suspect due to hypovolemia--back to baseline--encourage oral hydration
Elevated troponin (0.108 on admission) with no chest pain--most likely nonischemic myocardial injury--troponin downtrending x 3 and normalized
H/o advanced dementia, mood disorder--continue home meds--risperidone qhs and prn for agitation while inpatient can be stopped at discharge-- reviewed at length with family ( Amanuel, daughter Uma, son Marcos) today-- will need safe discharge
plan with increased supervision for dementia, they are in agreement and hopeful of discharge home with 09/02 caregiver-- Appreciate CM involvement.
Ambulatory dysfunction--Patient requires a lightweight wheelchair due to ambulatory dysfunction. Patient is unable to self-propel in a standard wheelchair. A walker has been considered, but is clinically ineffective due to patient's condition.
Patient needs a commode due to confinement to a single room. Patient is in need of a semi-electric hospital bed with foam mattress due to the need to elevate head of bed above 30 degrees to prevent aspiration
and to facilitate frequent repositioning to prevent bed ulcers and pressure points. Patient needs a lift for transfer between bed and chair (or between bed and wheelchair or commode). Without the use of a lift, the patient would be confined to the
bed.
Other:
Osteoarthritis s/p multiple orthopedic surgeries--reassess for pain control as needed
S/p bilateral mastectomy with reconstruction surgery--unclear if this included lymphadenectomy, bilateral upper extremities nonedematous on exam initially--caution with BUE, BP cuff on LE
Former smoker--no intervention needed
Code status: Full (per advanced directive, full code with all life sustaining measures at least initially for 14 days; surrogate may adjust duration if patient is permanently unconscious with no hope of recovery)
VTE ppx: Heparin SC every 12h
Diet: Soft/bite sized, thin liquids
Dispo planninh care, discharge planning ongoing
Family updated extensively 10/14, 10/17 ( Amanuel, daughter Uma)
10/13/2024 abdomen/pelvis CT
IMPRESSION:
There is extensive gastric distention with numerous loops of small bowel extending into the pelvis. There is no discrete transition point identified, however evaluation of the pelvis is limited secondary to streak artifact and findings are favored
to represent a small bowel obstruction. There is no evidence of pneumoperitoneum.
Bilateral nonobstructing renal calculi measuring up to 6 mm on the left and 3 mm on the right, unchanged.
10/13/2024 chest x-ray
FINDINGS:
Lines and tubes: None.
Lungs: The lungs are clear. No pleural effusion or pneumothorax.
Heart: Cardiac and mediastinal contours are unremarkable. Minimal atherosclerotic calcifications of the aortic arch.
Osseous structures: Visualized osseous structures are within normal limits. Bilateral breast prostheses. Surgical clips project over the right upper quadrant.
Gaseous distention of the stomach.
IMPRESSION:
No acute cardiopulmonary abnormality.
10/13/2024 chest x-ray
IMPRESSION:
Nasogastric tube with tip in proximal stomach.
10/15/2024 abdomen/pelvis ct w iv/po contrast
Bowel loops are normal caliber. The terminal ileum and appendix are within normal limits. Oral contrast has not yet reached the colon. There is moderate artifact in the pelvis secondary to the bilateral hip hardware.
There are surgical clips in the mid abdomen consistent with previous surgery. In this region, there is a prominent loop of small bowel measuring 5.7 cm in maximum diameter. This measures approximately 6 cm in length and has a similar appearance on
the previous exam.
IMPRESSION: Mild diffuse gastric wall thickening concerning for gastritis. . New. Previous gastric distention has resolved.
Possible stranding of the upper abdominal mesentery versus findings due to patient motion artifact. New. Mesenteric pathology cannot be excluded
Mild nonspecific free fluid in the pelvis. New. Etiology unknown. Probably reactive. Uncommon in a postmenopausal female.
Small left ovarian cyst. Stable.
Tiny bilateral pleural effusions. New. Mild bibasilar atelectasis. New
Small splenic cyst. Stable
Prior cholecystectomy. Stable
Bilateral nonobstructing renal stones. Stable. Too small to characterize hypodense left renal lesion likely a benign cyst. Stable.
Postsurgical change in the abdomen. Stable
10/06/2024 Abd xray
FINDINGS: AP supine examination of the abdomen, with 2 radiographs, obtained at 0747 hours.
Nasogastric tube is present with tip projecting over the left upper quadrant within the stomach.
D luminal contrast agent is mainly within the colon, including extension to the rectum. Mild to moderate distention of the rectum with stool and contrast.
There is a slightly dilated loop of air-filled small bowel in the left upper quadrant, which could represent focal ileus or low-grade partial obstruction.
Surgical clips in the right upper quadrant compatible previous cholecystectomy.
Bilateral hip prostheses are present.
Mild levoconvex scoliosis centered in the midlumbar spine. Changes of degenerative disc disease which appear greatest at L2-3.
IMPRESSION: GI luminal contrast agent administered for CT scan has passed into the colon including the rectum.
Periph vasc US 10/16/24
IMPRESSION: Nonocclusive thrombus is seen within the basilic vein within the distal aspect of the left upper arm.
The rest of the left upper extremity veins are patent as described.
Anticipated Discharge: Within 24 hours
Subjective/Interval History
-
Date of Service: October 19, 2024
No acute events overnight. Pleasantly confused, conversant this morning. Denies complaints. Review of systems negative-- denies dizziness, chest pain, shortness of breath, abdominal pain, nausea, vomiting, diarrhea, constipation.
Objective Data
-
Labs:
Laboratory Results
10/19/24
05:59
WBC 7.2
Hgb 13.4
Hct 39.2
Plt Count 288
Sodium 142
Potassium 4.2
Chloride 106
Carbon Dioxide 28
BUN 9
Creatinine 0.7
Glucose 93
Calcium 10.0
10/13/24 16:21 Blood/Venous Blood Culture - Final
No Growth - Final Report
10/13/24 16:21 Blood/Venous Blood Culture - Final
No Growth - Final Report
10/17/24 12:00 Nose MRSA Screen - Final
No Methicillin Resistant Staphylococcus aureus isolated.
Vital Signs:
Vital Signs
Temp Pulse Resp BP Pulse Ox
97.9 F 76 16 107/85 98
10/19/24 07:25 10/19/24 07:25 10/19/24 07:25 10/19/24 07:25 10/19/24 07:25
I&O
10/18/24 10/19/24 10/20/24
06:59 06:59 06:59
Intake Total 100 / 100
Output Total 200 / 200
Balance -100 / -100
Review of Systems
-
Unable to obtain full review of systems at this time due to: Dementia
History Source: Patient
All other systems: Reviewed and negative
Physical Exam
-
General: No Apparent Distress, Comfortable and Conversant; Negative Pain, Fever, Chills or Sweats
HEENT: Normocephalic and Atraumatic
Respiratory: Clear to Auscultation (Anterior lung aden) and Non Labored Respirations
Cardiac: Regular Rhythm and S1/S2
GI: Soft, Nondistended, Tender (Minimal TTP, significantly improved) and Other (No rebound/rigidity)
Musculoskeletal: No Clubbing, No Cyanosis, No Edema and Other (No restraints)
Skin: Warm and Dry
Neuro: Awake; Negative Oriented (Oriented to self (name/, will not state age); not oriented to place/time)
Psych: Apparent Dementia; Negative Intact Judgement/Insight
Data Reviewed
-
Diagnostic Radiology: Image personally visualized and interpreted, Report Reviewed by me, Discussed with Patient and Discussed with Family
CT Scan: Image personally visualized and interpreted, Report Reviewed by me, Discussed with Patient and Discussed with Family
Labs: Labs Reviewed by me, Discussed with Physician, Discussed with Nurse, Discussed with Patient and Discussed with Family
[2024-10-19] MEDS: LEXAPRO 20 MG PO (10:02)
[2024-10-19] MEDS: NAMENDA 10 MG PO ×2 (10:02→21:13)
[2024-10-19] MEDS: HEPARIN 5000 UNITS SC ×2 (10:02→21:13)
[2024-10-19] MEDS: REFRESH EYE DROPS (PF) 1 DROPS BOTH EYES (10:03)
[2024-10-19] MEDS: MIRALAX 17 GRAMS PO (10:03)
[2024-10-19] MEDS: NSS (PRESERVATIVE FREE) IV (10:03)
[2024-10-19] MEDS: DESENEX/MITRAZOL/ZEASORB 1 APPLIC TOPICAL ×2 (10:05→21:14)
--- NOTE | 2024-10-19 11:14 | CM ---
Addendum entered by Myla Richmond 10/19/24 15:44:
wheelchair to be delivered tomorrow by [facility] to follow, [facility] is working on having the shifts filled and CM updated patient daughter that plan is now for discharge tomorrow. Physician also aware.
Addendum entered by Myla Richmond 10/19/24 13:07:
Patient son and daughter spoke with physicians, patient father and CM in room via phone. Patient wants to go home. [facility] provide additional resources for short period of time.
Patient in bed calm and interacting occasionally. [facility] and CM sent tt to request referral with following requested DME; wheelchair, bedside commode and hospital bed. [facility] it does not appear
patient will qualify for hospital bed at this time. CM will review with patient daughter and son to confirm what they would like to do. Awaiting confirmation from [facility]'s [phone] of family and agencies ability to cover appropriate needs.
PT/OT to assess to confirm patient ability to work with one person as prior to today she was needing 2 people for safety concerns. Patient daughter and son both requested CM send them IMM via email; daughter [email or web address]; son and
[email or web address].
PT/OT assessed patient and recommending 24 hour care due to patient agitation, and they are recommending 2 persons working with them and patient is planning to help with one other aide/ person. Patient has walker and commode per patient
. Requesting wheelchair for ease of transportation/for patient from [facility]. Patient family updated, daughter phone number [phone]. CM will continue to follow for discharge planning needs.
Plan; home with VN; aides 09/02 with [facility] home health and wheelchair.
Addendum entered by Myla Richmond 10/19/24 11:15:
Psych hospitalization was more than 25 years ago per patient daughter
Original Note:
CM spoke with patient daughter and son. Family phone conference with physician requested at 3:30pm. CM updated physician regarding request and await response.
[2024-10-19 13:10] VITALS: BP 89/65; PULSE 67; PULSE 74; O2SAT 97
--- NOTE | 2024-10-19 13:57 | W.PN.GS2 ---
Today's Communication / Plan
-
s/o
Assessment / Plan
-
79 yo female p/w abdominal distention related to a likely partial small bowel obstruction probably related to adhesions, though possible due to dysmotility, malignancy, or medication induced.
Repeat CT scan with oral contrast (10/15): Thickening of stomach wall, improved dilation of the stomach and small bowel, no evidence of obstruction, hazy appearance of the mesentery difficult to determine clinical significance given motion artifact,
no clear mass
Repeat abdominal x-ray (10/16): Contrast progression into the colon, mild residual dilation of the SB
AFVSS
Leukocytosis resolved
ARLIN improving with IVF
Passing stools, modified diet
No changes from a surgical perspective. Continue diet as tolerated. Bowel meds ordered.
Plan:
-- Appreciate TWISTER TENDER eval, advance to IDDSI 6 diet (soft/bite sized) as tolerated
-- Miralax daily
-- HLIV
-- DVT: Lovenox
-- GS will s/o pls call with ?s
Subjective Data
-
Date of Service: October 19, 2024
Passing flatus, denies n/v, nikki PO
Objective Data
-
Intake and Output
10/18/24 10/19/24 10/20/24
06:59 06:59 06:59
Intake Total 100 / 100
Output Total 200 / 200
Balance -100 / -100
Intake:
Oral fluids 100 / 100
Output:
Urine, Voided 200 / 200
Other:
Number of approximated MODERATE 1
amounts of urine
How many times incontinent 1
MODERATE amount urine
How many times incontinent 1 1
SATURATED amount urine
Vital Signs
Temp Pulse Resp BP Pulse Ox
97.9 F 76 16 107/85 98
10/19/24 07:25 10/19/24 07:25 10/19/24 07:25 10/19/24 07:25 10/19/24 07:25
Lab Results
10/19/24 05:59
10/19/24 05:59
Calcium 10.0 mg/dl (8.4-10.2) 10/19/24 05:59
Magnesium 2.0 mg/dl (1.6-2.3) 10/19/24 05:59
Total Bilirubin 0.6 mg/dl (0.2-1.3) 10/17/24 05:16
AST 26 U/L (14-36) 10/17/24 05:16
ALT 23 U/L (0-35) 10/17/24 05:16
Alkaline Phosphatase 69 U/L (38-126) 10/17/24 05:16
Total Protein 5.0 g/dl (6.3-8.2) L 10/17/24 05:16
Albumin 2.7 g/dl (3.5-5.0) L 10/17/24 05:16
Physical Exam
-
Gen: NAD
Abd: softly distended, nt
--- NOTE | 2024-10-19 14:06 | VNURNOTE ---
Cooler Conveyor Loader spoke with dgjason Eaton via phone discuss resuming [facility] nurse/therapy services at discharge. Dgt is agreeable and understands that visits at home will be 2-3 x per week to assess and teach medical management.
[facility] contact information provided. Patient is aware that [facility] will contact them for start of care after discharge from .
[facility] referral completed in Care Port.
Per CM family requesting transport chair with chair cushion. Request fexed to [facility], received fax receipt. Attempted to call [facility], left voicemail.
[2024-10-19 14:22] VITALS: BP 89/65; PULSE 67
[2024-10-19 14:35] VITALS: BP 107/59
[2024-10-19] MEDS: RISPERDAL 0.25 MG PO (21:12)
[2024-10-19] MEDS: ARICEPT 10 MG PO (21:12)
[2024-10-19] MEDS: REMERON 30 MG PO (21:12)
[2024-10-19 23:12] VITALS: BP 148/67
[2024-10-20] MEDS: NSS (PRESERVATIVE FREE) IV (07:07)
[2024-10-20 07:11] VITALS: BP 133/54
[2024-10-20] MEDS: NAMENDA 10 MG PO (08:35)
[2024-10-20] MEDS: LEXAPRO 20 MG PO (08:36)
[2024-10-20] MEDS: HEPARIN 5000 UNITS SC (08:36)
[2024-10-20] MEDS: MIRALAX 17 GRAMS PO (08:36)
[2024-10-20] MEDS: REFRESH EYE DROPS (PF) 1 DROPS BOTH EYES (08:41)
[2024-10-20] MEDS: DESENEX/MITRAZOL/ZEASORB 1 APPLIC TOPICAL (08:43)
--- NOTE | 2024-10-20 10:12 | W.PN.HOSP.TC ---
Addendum entered and electronically signed by Pancho Bush MD 10/20/24 11:42:
Seen and examined by me independently in collaboration with the medical collections specialist Dr. Lozada.
Lab data and imaging data reviewed.
Addendum as below :
Tolerating diet. No agitation today. Pleasantly confused. Abdomen soft.
Medically stable for discharge.
Family plan for home discharge with increased services at home.
DC home today once the services are set up.
Original Note:
Today's Communication/Plan
-
Discharge home with 09/02 caregiver today
Assessment / Plan
Assessment / Plan
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 Family also reported breathing heavily, abdominal
distention, and more confused than baseline. In the ED, she was found to have a small bowel obstruction and NGT was placed, which drained ~750 mL liquid stool initially. CT scan showed distention of stomach and numerous loops of small bowel,
favored to represent SBO; no evidence of pneumoperitoneum. Labs were notable for elevated WBC, lactate, lipase, troponin. She was started on IV Zosyn and admitted to IMU for sepsis secondary to SBO and concern for possible ischemic bowel. General
surgery was consulted��rec medical management provided and NGT decompression, no plans for surgery at this time.
Partial small bowel obstruction with concern for possible ischemic bowel on admission--likely 2/2 adhesions given history of resection, but broad differential--Abd CT on admission consistent with SBO though no transition point seen--blood cultures x
2 obtained, final result no growth--Apprec general surgery--s/p NGT decompression; CT showed some distention still, improved; follow up xray confirmed contrast reached colon--Continues to tolerate oral diet, passing BM--partial SBO resolved,
medically stable for discharge.
SIRS (leukocytosis, tachycardia) on admission-- likely secondary to above, also had concern for sepsis with ischemic bowel as potential infectious source-- s/p Zosyn 10/13-10/14--WBC trended down, remains afebrile, blood cultures No growth--Resolved
Superficial thrombophlebitis LUE-- Discontinued IV of LUE; continue supportive measures, heating pad, elevation; no signs/symptoms of infection
Metabolic acidosis with elevated anion gap (17) secondary to lactic acidosis on admission--likely hypoperfusion secondary to SBO/?bowel ischemia--resolved, lactate normalized
Elevated lipase on admission (3541)--likely compression of pancreas from gastric/bowel distention, ARLIN may be contributing--presentation and CT not consistent with pancreatitis--resolved, lipase normalized
ARLIN (Cr baseline ~0.8)--Cr 1.5 on admission, suspect due to hypovolemia--back to baseline--encourage oral hydration
Elevated troponin (0.108 on admission) with no chest pain--most likely nonischemic myocardial injury--troponin downtrending x 3 and normalized
H/o advanced dementia, mood disorder--continue home meds--risperidone qhs and prn for agitation while inpatient can be stopped at discharge-- reviewed at length with family ( Amanuel, daughter Uma, son Marcos)-- will need safe discharge plan
with increased supervision for dementia, they are in agreement and hopeful of discharge home with 09/02 caregiver-- Appreciate CM involvement.
Ambulatory dysfunction--Patient requires a lightweight wheelchair due to ambulatory dysfunction. Patient requires transport chair within their home to complete their daily activities. Patient is unable to self propel. Patient has caregiver to propel
them. A walker has been considered, but is clinically ineffective due to patient's condition. Patient needs a commode due to confinement to a single room. Patient is in need of a semi-electric hospital bed with foam mattress due to the need to
elevate head of bed above 30 degrees to prevent aspiration and to facilitate frequent repositioning to prevent bed ulcers and pressure points. Patient needs a lift for transfer between bed and chair (or between bed and wheelchair or commode).
Without the use of a lift, the patient would be confined to the bed.
Other:
Osteoarthritis s/p multiple orthopedic surgeries--reassess for pain control as needed
S/p bilateral mastectomy with reconstruction surgery--unclear if this included lymphadenectomy, bilateral upper extremities nonedematous on exam initially--caution with BUE, BP cuff on LE
Former smoker--no intervention needed
Code status: Full (per advanced directive, full code with all life sustaining measures at least initially for 14 days; surrogate may adjust duration if patient is permanently unconscious with no hope of recovery)
VTE ppx: Heparin SC every 12h
Diet: Soft/bite sized, thin liquids
Dispo planning: stable for discharge home with 09/02 caregiver
Family updated extensively 10/14, 10/17, 10/19
10/13/2024 abdomen/pelvis CT
IMPRESSION:
There is extensive gastric distention with numerous loops of small bowel extending into the pelvis. There is no discrete transition point identified, however evaluation of the pelvis is limited secondary to streak artifact and findings are favored
to represent a small bowel obstruction. There is no evidence of pneumoperitoneum.
Bilateral nonobstructing renal calculi measuring up to 6 mm on the left and 3 mm on the right, unchanged.
10/13/2024 chest x-ray
FINDINGS:
Lines and tubes: None.
Lungs: The lungs are clear. No pleural effusion or pneumothorax.
Heart: Cardiac and mediastinal contours are unremarkable. Minimal atherosclerotic calcifications of the aortic arch.
Osseous structures: Visualized osseous structures are within normal limits. Bilateral breast prostheses. Surgical clips project over the right upper quadrant.
Gaseous distention of the stomach.
IMPRESSION:
No acute cardiopulmonary abnormality.
10/13/2024 chest x-ray
IMPRESSION:
Nasogastric tube with tip in proximal stomach.
10/15/2024 abdomen/pelvis ct w iv/po contrast
Bowel loops are normal caliber. The terminal ileum and appendix are within normal limits. Oral contrast has not yet reached the colon. There is moderate artifact in the pelvis secondary to the bilateral hip hardware.
There are surgical clips in the mid abdomen consistent with previous surgery. In this region, there is a prominent loop of small bowel measuring 5.7 cm in maximum diameter. This measures approximately 6 cm in length and has a similar appearance on
the previous exam.
IMPRESSION: Mild diffuse gastric wall thickening concerning for gastritis. . New. Previous gastric distention has resolved.
Possible stranding of the upper abdominal mesentery versus findings due to patient motion artifact. New. Mesenteric pathology cannot be excluded
Mild nonspecific free fluid in the pelvis. New. Etiology unknown. Probably reactive. Uncommon in a postmenopausal female.
Small left ovarian cyst. Stable.
Tiny bilateral pleural effusions. New. Mild bibasilar atelectasis. New
Small splenic cyst. Stable
Prior cholecystectomy. Stable
Bilateral nonobstructing renal stones. Stable. Too small to characterize hypodense left renal lesion likely a benign cyst. Stable.
Postsurgical change in the abdomen. Stable
10/06/2024 Abd xray
FINDINGS: AP supine examination of the abdomen, with 2 radiographs, obtained at 0747 hours.
Nasogastric tube is present with tip projecting over the left upper quadrant within the stomach.
D luminal contrast agent is mainly within the colon, including extension to the rectum. Mild to moderate distention of the rectum with stool and contrast.
There is a slightly dilated loop of air-filled small bowel in the left upper quadrant, which could represent focal ileus or low-grade partial obstruction.
Surgical clips in the right upper quadrant compatible previous cholecystectomy.
Bilateral hip prostheses are present.
Mild levoconvex scoliosis centered in the midlumbar spine. Changes of degenerative disc disease which appear greatest at L2-3.
IMPRESSION: GI luminal contrast agent administered for CT scan has passed into the colon including the rectum.
Periph vasc US 10/16/24
IMPRESSION: Nonocclusive thrombus is seen within the basilic vein within the distal aspect of the left upper arm.
The rest of the left upper extremity veins are patent as described.
Anticipated Discharge: Today
Subjective/Interval History
-
Date of Service: October 20, 2024
No acute events overnight. Reports some abdominal discomfort which she says is the same as yesterday (though she denied this to me yesterday AM). Otherwise no complaints, pleasantly confused and would like uninterrupted sleep. Review of systems
negative-- denies dizziness, chest pain, shortness of breath, nausea, vomiting, diarrhea, constipation.
Objective Data
-
Labs:
Lab Results
10/19/24
05:59
WBC 7.2
RBC 4.38
Hgb 13.4
Hct 39.2
MCV 89.5
MCH 30.6
MCHC 34.2
RDW 13.9
Plt Count 288
MPV 10.3
Sodium 142
Potassium 4.2
Chloride 106
Carbon Dioxide 28
BUN 9
Creatinine 0.7
Estimated Creat Clear 65
eGFR > 60.00
Glucose 93
Calcium 10.0
Magnesium 2.0
10/13/24 16:21 Blood/Venous Blood Culture - Final
No Growth - Final Report
10/13/24 16:21 Blood/Venous Blood Culture - Final
No Growth - Final Report
10/17/24 12:00 Nose MRSA Screen - Final
No Methicillin Resistant Staphylococcus aureus isolated.
Vital Signs:
Vital Signs
Temp Pulse Resp BP Pulse Ox
97.1 F 57 16 133/54 98
10/20/24 07:11 10/20/24 07:11 10/20/24 07:11 10/20/24 07:11 10/20/24 07:11
I&O
10/19/24 10/20/24 10/21/24
06:59 06:59 06:59
Intake Total 1420 / 1420
Balance 1420 / 1420
Review of Systems
-
Unable to obtain full review of systems at this time due to: Dementia
History Source: Patient
All other systems: Reviewed and negative
Physical Exam
-
General: No Apparent Distress, Comfortable, Conversant and Other (sleeping comfortably, awoken easily for exam); Negative Pain, Fever, Chills or Sweats
HEENT: Normocephalic and Atraumatic
Respiratory: Clear to Auscultation (Anterior lung aden) and Non Labored Respirations
Cardiac: Regular Rhythm and S1/S2
GI: Soft, Nontender, Nondistended and Other (No rebound/rigidity. Patient intermittently gasps/flinches with abdominal palpation but it is not reproduceable when repeating palpation in same area-- suspect this is more startle from confusion/dementia
or anticipatory due to her significant pain prior to sbo resolution)
Musculoskeletal: No Clubbing, No Cyanosis, No Edema and Other (No restraints)
Skin: Warm and Dry
Neuro: Awake and Alert; Negative Oriented (Oriented to self (name/, will not state age); not oriented to place/time)
Psych: Calm and Apparent Dementia; Negative Intact Judgement/Insight
Data Reviewed
-
Diagnostic Radiology: Image personally visualized and interpreted, Report Reviewed by me, Discussed with Patient and Discussed with Family
CT Scan: Image personally visualized and interpreted, Report Reviewed by me, Discussed with Patient and Discussed with Family
Labs: Labs Reviewed by me, Discussed with Physician, Discussed with Nurse, Discussed with Patient and Discussed with Family
--- NOTE | 2024-10-20 11:12 | W.DCSUMMARY ---
Discharge Summary
Discharge Data
Date of Admission: 10/13/24
Date of Discharge: 10/20/24
-
Pending Results: No
Hospital Course
CC PCP Giovany Briceno
Discharging Physician : Dr. Lozada/Dr. Bush
Disposition : Home with home health, 09/02 caregivers
Primary care physician : Giovany Briceno
Principal Discharge diagnosis :
Partial small bowel obstruction-- resolved after nasogastric tube decompression and bowel rest
SIRS, lactic acidosis, elevated lipase on admission secondary to above
Acute kidney injury
Nonischemic myocardial injury
Superficial thrombophlebitis of left upper extremity
Chronic Discharge diagnosis :
Advanced dementia
Mood disorder
Osteoarthritis
History of bilateral mastectomy with possible lymph node resections
History of carcinoid tumor status post small bowel resection (age 51)
Hospital Course :
Presented to ED from home for abdominal pain/distension and confusion worse than baseline. In the ED, she was found to have small bowel obstruction on imaging. On admission, there was also concern for sepsis with possible ischemic bowel as
infectious source, and blood cultures were obtained and IV zosyn started. General surgery was consulted. SBO was managed with nasogastric tube decompression, bowel rest, and supportive measures. She showed significant clinical improvement, and
antibiotics were discontinued 10/14; blood cultures eventually showed no growth as final result. The repeat CT scan showed improving distension, and follow up abdominal xray confirmed contrast reached colon. Her diet was advanced as tolerated, she
continued to pass bowel movements, and she was stable for discharge.
Swelling of the left arm was noted, and peripheral venous ultrasound showed nonocclusive thrombus of basilic vein within distal aspect of left upper arm. which was treated with supportive measures, warm compresses, elevation. She had sundowning and
behavioral disturbances from advanced dementia, which briefly required nonviolent restraints and 1:1 observation. Risperidone was added while inpatient, but discontinued at discharge. Her other chronic conditions remained stable. On day of
discharge she was stable and went home with 24/7 caregivers.
Important imaging findings :
10/13/2024 abdomen/pelvis CT
IMPRESSION:
There is extensive gastric distention with numerous loops of small bowel extending into the pelvis. There is no discrete transition point identified, however evaluation of the pelvis is limited secondary to streak artifact and findings are favored
to represent a small bowel obstruction. There is no evidence of pneumoperitoneum.
Bilateral nonobstructing renal calculi measuring up to 6 mm on the left and 3 mm on the right, unchanged.
10/13/2024 chest x-ray
FINDINGS:
Lines and tubes: None.
Lungs: The lungs are clear. No pleural effusion or pneumothorax.
Heart: Cardiac and mediastinal contours are unremarkable. Minimal atherosclerotic calcifications of the aortic arch.
Osseous structures: Visualized osseous structures are within normal limits. Bilateral breast prostheses. Surgical clips project over the right upper quadrant.
Gaseous distention of the stomach.
IMPRESSION:
No acute cardiopulmonary abnormality.
10/13/2024 chest x-ray
IMPRESSION:
Nasogastric tube with tip in proximal stomach.
10/15/2024 abdomen/pelvis ct w iv/po contrast
Bowel loops are normal caliber. The terminal ileum and appendix are within normal limits. Oral contrast has not yet reached the colon. There is moderate artifact in the pelvis secondary to the bilateral hip hardware.
There are surgical clips in the mid abdomen consistent with previous surgery. In this region, there is a prominent loop of small bowel measuring 5.7 cm in maximum diameter. This measures approximately 6 cm in length and has a similar appearance on
the previous exam.
IMPRESSION: Mild diffuse gastric wall thickening concerning for gastritis. . New. Previous gastric distention has resolved.
Possible stranding of the upper abdominal mesentery versus findings due to patient motion artifact. New. Mesenteric pathology cannot be excluded
Mild nonspecific free fluid in the pelvis. New. Etiology unknown. Probably reactive. Uncommon in a postmenopausal female.
Small left ovarian cyst. Stable.
Tiny bilateral pleural effusions. New. Mild bibasilar atelectasis. New
Small splenic cyst. Stable
Prior cholecystectomy. Stable
Bilateral nonobstructing renal stones. Stable. Too small to characterize hypodense left renal lesion likely a benign cyst. Stable.
Postsurgical change in the abdomen. Stable
10/16/2024 Abd xray
FINDINGS: AP supine examination of the abdomen, with 2 radiographs, obtained at 0747 hours.
Nasogastric tube is present with tip projecting over the left upper quadrant within the stomach.
D luminal contrast agent is mainly within the colon, including extension to the rectum. Mild to moderate distention of the rectum with stool and contrast.
There is a slightly dilated loop of air-filled small bowel in the left upper quadrant, which could represent focal ileus or low-grade partial obstruction.
Surgical clips in the right upper quadrant compatible previous cholecystectomy.
Bilateral hip prostheses are present.
Mild levoconvex scoliosis centered in the midlumbar spine. Changes of degenerative disc disease which appear greatest at L2-3.
IMPRESSION: GI luminal contrast agent administered for CT scan has passed into the colon including the rectum.
Periph vasc US 10/16/24
IMPRESSION: Nonocclusive thrombus is seen within the basilic vein within the distal aspect of the left upper arm.
The rest of the left upper extremity veins are patent as described.
Discharge Plan
-
Patient Disposition: Home with Home Care
Discharge Diagnosis/Procedures: Partial small bowel obstruction-- resolved after nasogastric tube decompression and bowel rest
Superficial thrombophlebitis of left upper extremity
Acute kidney injury
History of advanced dementia, mood disorder
Osteoarthritis
History of bilateral mastectomy with possible lymph node resection
Condition: Fair
Diet: As tolerated and Other diet
Additional Diets: Soft texture/bite sized solids, ok for thin liquids
Activity: With assistance, As tolerated and No strenuous activity
Driving Restrictions: No driving
Bathing Restrictions: OK to Shower
Other Services: VN, PT, OT and ST
Activity Restrictions/Additional Instructions:
Patients with dementia tend to be more confused in the hospital compared to how they are at home. Based on our assessment here, Cindy needs supervision from caregivers 24 hours a day, 7 days a week. Follow up with your caregivers and Primary Care
closely, as her needs may change (increase or decrease) after leaving the hospital. As we discussed, looking into Long-Term facilities or Memory Care units may be beneficial.
Cindy also needs assistance with getting out of bed, walking, toileting, etc. that may require 1-2 people. Continue physical therapy and occupational therapy.
Instructions: Dementia (including Alzheimer disease), Small bowel obstruction, Preventing falls in adults
Referrals:
Giovany Briceno MD [Family Provider] - in less than 1 week (Call your Primary Care to schedule appointment within 1 week)
Additional Discharge Medication Instructions: Continue taking miralax (aka polyethylene glycol) daily to prevent constipation. If having multiple bowel movements per day or loose stool, you can reduce dose or frequency of miralax.
For medication questions or refills, please call your Primary Care.
Prescriptions:
New
polyethylene glycol 3350 17 gram Powder In Packet
17 g PO DAILY Qty: 0 0RF
Continued
mirtazapine 30 MG tablet
30 mg PO HS
donepezil 10 MG tablet
10 mg PO HS
escitalopram oxalate 20 MG tablet
20 mg PO DAILY
memantine 10 MG tablet
10 mg PO BID
carboxymethylcellulose sodium [Refresh Tears] 0.5 % Drops
1 drp BOTH EYES DAILY
omega 1-nnm-sat-fish oil [Fish Oil] 1,000 (120-180) mg Capsule
1 cap PO HS
Discharge Orders:
Discharge Patient (As Directed); Ordered 10/20/24
Ordered By: Stephanie Lozada
Discharge Date and Time
Print Language: IVORIAN
--- NOTE | 2024-10-20 11:21 | CM ---
Addendum entered by Renay Fajardo 10/20/24 13:38:
Spoke with daughter Uma, home services arranged.
Daughter will arrive in approx 40 min to transport home.
again offered ambulance transport, but daughter declined, stating there will be enough people in the car to keep her secured.
Addendum entered by Renay Fajardo 10/20/24 13:25:
[facility].
TC to Daughter to verify and again, offer transport, await TCB (she was going into a meeting)
Original Note:
TC to [facility] [phone] to verify [facility] coverage, left VM
TC to [facility], scheduled for delivery today within the hour.
Spoke with patients daughter Uma who sated she spoke with credit administrator of [employer]- [employer]jit, and gave me his cell number- p#[phone], CM reached out to Harjit and he anticipates having coverage arranged later this afternoon, he will call this CM back
once arranged.
Patients spouse is waiting at home for to arrive then coming to hospital via [employer], unable to drive due to vascular dementia.
CM offered ambulance transport for patient once 24/7 care arranged and daughter stated they would prefer to transport.
Plan: anticipate d/c later this afternoon after services verified with 24/7 [employer], [facility] and [facility].
[2024-10-20 14:28] VITALS: BP 121/60
== END 2024-10-20 14:50 | disposition home health service (06) | DRG 872 ==
LOC: 2 NORTH 17:55
PROVIDERS: Clinical Nurse Specialist Family Health; Physician Assistant; Radiology Diagnostic Radiology; Student in an Organized Health Care Education/Training Program; ADMITTING PHYSICIAN Internal Medicine; ATTENDING PHYSICIAN Internal Medicine; CONSULT PHYSICIAN Surgery; EMERGENCY PHYSICIAN Student in an Organized Health Care Education/Training Program; FAMILY PHYSICIAN Internal Medicine Geriatric Medicine
PROC: 0D9670Z Drainage of Stomach with Drainage Device, Via Natural or Artificial Opening (ICD-10-PCS; 2024-10-13)
DX: A41.9 Sepsis, unspecified organism (principal); N17.9 Acute kidney failure, unspecified; F02.C3 Dementia in other diseases classified elsewhere, severe, with mood disturbance; E87.20 Acidosis, unspecified; I5A Non-ischemic myocardial injury (non-traumatic); K56.51 Intestinal adhesions [bands], with partial obstruction; F02.C18 Dementia in other diseases classified elsewhere, severe, with other behavioral disturbance; K55.9 Vascular disorder of intestine, unspecified; G30.9 Alzheimer's disease, unspecified; E86.0 Dehydration; F31.9 Bipolar disorder, unspecified; R65.20 Severe sepsis without septic shock; I80.8 Phlebitis and thrombophlebitis of other sites; M19.90 Unspecified osteoarthritis, unspecified site; Z78.1 Physical restraint status; Z96.652 Presence of left artificial knee joint; Z96.643 Presence of artificial hip joint, bilateral; Z90.49 Acquired absence of other specified parts of digestive tract; Z88.2 Allergy status to sulfonamides; Z88.1 Allergy status to other antibiotic agents; Z87.891 Personal history of nicotine dependence; Z85.038 Personal history of other malignant neoplasm of large intestine; Z79.899 Other long term (current) drug therapy
CPT/HCPCS: 71045; 74018; 74177; 80048; 80053; 83605; 83690; 83735; 84484; 85025; 85027; 86803; 86850; 86900; 86901; 87040; 87070; 92526; 92610; 93005; 93971; 96365; 97116; 97163; 97167; 97530; 99291; Q9967

== ENCOUNTER → 2024-10-31 12:22 | Outpatient (REF) | payer MEDICARE, BC, SELFPAY ==
[2024-10-31 14:02] LABS: Urine Albumin 1+ (Neg - Trace); Urine Bilirubin Negative (Negative); Urine Character Clear (Clear); Urine Color Yellow; Urine Glucose Negative (Negative); Urine Ketone Negative (Negative); Urine Leukocyte 3+ (Negative); Urine Nitrite Positive (Negative); Urine Occult Blood 1+ (Negative); Urine Specific Gravity 1.025 (<1.030); Urine Urobilinogen Negative (Neg - 1+)
[2024-10-31 14:51] LABS: Urine White Cell 40-50 /HPF (0-5)
[2024-10-31 14:52] LABS: Urine Bacteria Moderate (Negative)
[2024-10-31 14:53] LABS: Urine Red Blood Cell 0-2 /HPF (0-2)
== END ==
LOC: REG 12:22
PROVIDERS: ATTENDING PHYSICIAN Internal Medicine Geriatric Medicine
DX: I10 Essential (primary) hypertension (principal); J44.9 Chronic obstructive pulmonary disease, unspecified; E78.2 Mixed hyperlipidemia; M54.16 Radiculopathy, lumbar region; I11.9 Hypertensive heart disease without heart failure; G44.209 Tension-type headache, unspecified, not intractable; E55.9 Vitamin D deficiency, unspecified; N39.41 Urge incontinence; I95.1 Orthostatic hypotension; Z13.89 Encounter for screening for other disorder; K56.609 Unspecified intestinal obstruction, unspecified as to partial versus complete obstruction; K85.80 Other acute pancreatitis without necrosis or infection
CPT/HCPCS: 36415; 81003; 81015